=== PATIENT | female | born 1945 | race Caucasian/White ===

== ENCOUNTER 2017-01-11 16:56 | Inpatient (IN) | payer MEDICARE, BC ==
[~2017-01-11] VITALS: Ht 172.7 cm; Wt 98.0 kg
[~2017-01-11 16:56] MED LIST: VANCOMYCIN 2 GM in SOD CHLORIDE 0.9% 500 ML IVPB SCH
[2017-01-11 19:43] VITALS: TEMP 100.5
[2017-01-11] MEDS ORDERED: ACETAMINOPHEN 325 MG TAB PO STA (20:02)
[2017-01-11] MEDS ORDERED: SODIUM CHLORIDE 0.9% 1L BAG IV* STA (20:02)
--- NOTE | 2017-01-11 20:06 | ERA ---
ER Documentation Chief Complaint Date/Time DATE: 01/11/17 TIME: 20:03 Chief Complaint SENT BY PCP FOR POSITIVE BLOOD CULTURES HPI 71-year-old woman referred here by her PMD for recent positive blood cultures. Gram-positive cocci. Blood was drawn because she has had 3 months of daily low- grade fever of unknown etiology, she also had a cough on a daily basis but was treated as an outpatient twice with azithromycin and one time with ciprofloxacin. She states overall her cough is improved although fevers continue. She denies chest pain or shortness of breath, no calf or leg swelling , no abdominal pain, no vomiting or diarrhea, no blood per rectum, no easy bruising or skin discoloration. ROS All systems reviewed and are negative except as per history of present illness. PMhx/Soc Thyroid problems History of Surgery: Yes (cataract sx, choley, ercp, gastric bypass, ) Anesthesia Reaction: No Hx Neurological Disorder: No Hx Respiratory Disorders: No Hx Cardiac Disorders: Yes (htn. high cholesterol) Hx Psychiatric Problems: No Hx Miscellaneous Medical Probl: No Hx Alcohol Use: Yes (occasional) Hx Substance Use: No Hx Tobacco Use: No Smoking Status: Former smoker FmHx Family History: No diabetes Physical Exam Vitals Vital Signs Date Time Temp Pulse Resp B/P Pulse Ox O2 Delivery O2 Flow Rate FiO2 01/11/17 19:43 100.5 01/11/17 17:01 100.0 80 18 159/69 97 Physical Exam GENERAL: Well-developed, well-nourished, in no apparent distress, looks nontoxic in appearance, febrile HEENT: Dry mucous membranes, pink conjunctiva, no cervical spine tenderness or step-off deformities, no goiter, no jaundice or icterus, extraocular movements intact without pain. No submandibular induration, and no pharyngeal erythema NEURO: Alert and oriented 3, cranial nerves II through XII intact bilaterally, pupils equal round reactive to light, no focal deficits or facial asymmetry, sensation intact distally Strength 5/5 in upper and lower extremities bilaterally CARDIAC: Regular rate and rhythm, no murmurs rubs or gallops LUNGS: Clear bilaterally no wheezing crackles or stridor ABDOMEN: Soft nontender, no guarding, no rigidity, no rebound, no psoas sign no obturator sign. Normoactive bowel sounds SKIN: Warm and dry to touch, no abrasions, contusions, or hematomas, no lacerations, no ecchymosis, no target lesions, and without ulcers EXTREMITIES: No clubbing cyanosis or edema, calves are bilaterally symmetrical, no Homans sign, no popliteal cord sign. Distal pulses equal and bilateral PSYCH: Normal affect without agitation or irritability Result Diagram: 01/11/17205101/11/172051 Results 24 hrs Laboratory Tests Test 01/11/17 20:52 01/11/17 22:05 White Blood Count 7.310^3/ul Red Blood Count 4.1310^6/ul Hemoglobin 11.7g/dl Hematocrit 35.4% Mean Corpuscular Volume 85.7fl Mean Corpuscular Hemoglobin 28.3pg Mean Corpuscular Hemoglobin Concent 33.1g/dl Red Cell Distribution Width 15.9% Platelet Count 65832^3/UL Mean Platelet Volume 9.8fl Neutrophils % 64.2% Lymphocytes % 26.8% Monocytes % 7.8% Eosinophils % 0.3% Basophils % 0.4% Nucleated Red Blood Cells % 0.0/100WBC Neutrophils # (Manual) 4.710^3/ul Lymphocytes # 2.010^3/ul Monocytes # 0.610^3/ul Eosinophils # 0.010^3/ul Basophils # 0.010^3/ul Nucleated Red Blood Cells # 0.010^3/ul Prothrombin Time 12.6Sec Prothrombin Time Ratio 1.0 INR International Normalized Ratio 0.94 Activated Partial Thromboplast Time 37.4Sec Sodium Level 132mmol/L Potassium Level 4.2mmol/L Chloride Level 96mmol/L Carbon Dioxide Level 26mmol/L Anion Gap 14 Blood Urea Nitrogen 12mg/dl Creatinine 0.74mg/dl Glucose Level 107mg/dl Lactic Acid Level 1.2mmol/L 0.9mmol/L Calcium Level 9.8mg/dl Total Bilirubin 0.5mg/dl Direct Bilirubin 0.00mg/dl Indirect Bilirubin 0.5mg/dl Aspartate Amino Transf (AST/SGOT) 63IU/L Alanine Aminotransferase (ALT/SGPT) 63IU/L Alkaline Phosphatase 134IU/L Troponin I < 0.012ng/ml Total Protein 8.2g/dl Albumin 4.1g/dl Globulin 4.10g/dl Albumin/Globulin Ratio 1.00 Lipase 227U/L Current Medications Medications (Trade) Dose Ordered Sig/Kelle Route PRN Reason Start Time Stop Time Status Last Admin Dose Admin Sodium Chloride (NS) 3,040 ml BOLUS OVER 2 HOURS STAT IV* 01/11/17 20:02 01/11/17 20:03 DC 01/11/17 20:02 Acetaminophen 650 mg 650 mg ONCE STAT PO 01/11/17 20:02 01/11/17 20:03 DC 01/11/17 21:09 Vancomycin HCl 250 ml @ 125 mls/hr ONCE ONCE IVPB 01/11/17 20:30 01/11/17 22:29 DC Cefepime HCl (Maxipime 1gm/50 ml (Pmx)) 50 ml @ 100 mls/hr ONCE ONCE IVPB 01/11/17 20:30 01/11/17 20:59 DC 01/11/17 21:09 Procedures/[facility] IV line was established patient was placed on quality assurance monitor chassis rhythm strip revealed a sinus rhythm at about 80 bpm with upright P and T waves. Patient was febrile. Blood and urine cultures have been ordered results are pending I will follow-up. I do not suspect sepsis. EKG performed, read by me: 83 bpm, normal sinus rhythm, normal axis, no acute ST segment changes, narrow QRS complex, with good R-wave progression in precordial leads. One AP view of the chest performed, read by me reveals no acute infiltrates, normal mediastinum, sharp costophrenic and cardiac borders, no air under the diaphragm. Otherwise unremarkable chest x-ray. CT scan of the abdomen and pelvis was performed that was multiple incidental findings although no acute infectious or inflammatory pathology noted. Please refer to radiologist dictation for full report. I administered cefepime 1 g IV and vancomycin 1 g IV. Patient also received acetaminophen 650 mg p.o. for fever and 3 L normal saline intravenously for dehydration. CBC was normal, electrolytes normal, liver function tests normal, troponin negative, lactic acid was low. I do not suspect sepsis. Patient will be admitted to [facility] for continued medical management and further imaging, patient may require echocardiogram to rule out endocarditis. Departure Diagnosis: Primary Impression: Fever of unknown origin Additional Impression: Positive blood culture Condition: LIN Rooney MD Jan 11, 2017 20:06
[2017-01-11] MEDS ORDERED: CEFEPIME 1GM/50 ML (PMX) 50 ML IVPB ONE (20:30)
[2017-01-11] MEDS ORDERED: VANCOMYCIN 1 GM (PMX) 250 ML IVPB ONE (20:30)
--- NOTE | 2017-01-11 20:56 | RADRPT ---
PROCEDURE: CT ABDOMEN AND PELVIS WITHOUT CONTRAST: CLINICAL INDICATION: 71 years of age, female , possible sepsis. COMPARISON: None available. TECHNIQUE: CT of the abdomen and pelvis was performed without intravenous contrast. Oral contrast wa s not administered prior to the examination. Coronal and sagittal reformatted images were obtained from the axial source images. Images were revi ewed on a high-resolution PACS workstation. Dose information: Based on a 32 cm phantom, the estimated radiation dose (CTDI vol mGy) for each ser ies in this exam is . The estimated cumulative dose (DLP mGy-cm) is . One or more of the following dose reduction techniques were used: - Automated exposure control. - Adjustment of the mA and/or kV according to patient size. - Use of iterative reconstruction technique. FINDINGS: In the absence of intravenous contrast, the study constitutes a limited assessment of the solid orga ns, bowel and vessels. 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 Otherwise normal. ABDOMEN/PELVIS: Liver: Normal noncontrast appearance. Gallbladder: Status post cholecystectomy. Bile ducts: Mild pneumobilia in left greater than right hepatic lobe without biliary duct dilatation . Spleen: Mild splenomegaly measuring 13.9 cm in length. Pancreas: Normal noncontrast appearance. Adrenal glands: Sub centimeter hypodense nodules bilateral adrenal glands likely represent benign ad enomas. Kidneys and ureters: Normal noncontrast appearance. Aorta and IVC: Atherosclerosis aorta. No aneurysm Lymph nodes: Normal noncontrast appearance. Gastrointestinal tract: Small hiatus hernia. Status post ante-colic Kory-en-Y gastric bypass without evidence of complications . Bowel loops are decompressed. Mild sigmoid colon diverticulosis withou t diverticulitis. Appendix: Normal Bladder: Collapsed. Pelvic Organs: The uterus and adnexa are unremarkable. Peritoneal cavity: No free fluid or free intraperitoneal air. Abdominal wall: Normal noncontrast appearance. BONES: Musculoskeletal: Multilevel degenerative changes in spine. No suspicious bone lesions. IMPRESSION: Status post ante-colic Kory-en-Y gastric bypass with a small hiatus hernia. Negative for evidence o f complications. Sigmoid colon diverticulosis without diverticulitis. Status post cholecystectomy. Pneumobilia is likely from prior sphincterotomy. Recommend correlatio n with GI history. RPTAT: HCTS Efrain Schrader, Physician Date Time Electronically viewed and signed by Efrain Schrader, Physician on 01/11/2017 20:56 /
--- NOTE | 2017-01-11 20:57 | RADRPT ---
PROCEDURE: Portable chest x-ray. CLINICAL INDICATION: 71 years of age, female. Possible sepsis. TECHNIQUE: Portable AP view of the chest. COMPARISON: None available. FINDINGS: Cardiomediastinal contours are normal. Lungs are clear. Negative for pleural effusion or pneumothorax. No acute bony abnormality. IMPRESSION: Negative for evidence of acute chest process. Negative for an infiltrate.. RPTAT: HCTS Efrain Schrader Physician Date Time Electronically viewed and signed by Efrain Schrader Physician on 01/11/2017 20:57 CS/
[2017-01-11 21:16] LABS: BASOPHILS % 0.4 % (0.0-2.0); EOSINOPHILS % 0.3 % (0.0-7.0); HEMATOCRIT 35.4 % (37.0-47.0); HEMOGLOBIN 11.7 g/dl (12.0-16.0); LYMPHOCYTES % 26.8 % (15.0-51.0); MEAN CORPUSCULAR HEMOGLOBIN 28.3 pg (29.0-33.0); MEAN CORPUSCULAR HGB CONC 33.1 g/dl (32.0-37.0); MEAN CORPUSCULAR VOLUME 85.7 fl (82.0-101.0); MEAN PLATELET VOLUME 9.8 fl (7.4-10.4); MONOCYTE # 0.6 10^3/ul (0.3-0.9); MONOCYTES % 7.8 % (0.0-11.0); NEUTROPHILS % 64.2 % (39.0-77.0); PLATELET COUNT 207 10^3/UL (140-415); RED BLOOD COUNT 4.13 10^6/ul (4.20-5.40); RED CELL DISTRIBUTION WIDTH 15.9 % (11.5-14.5); WHITE BLOOD COUNT 7.3 10^3/ul (4.8-10.8)
[2017-01-11 21:38] LABS: INR 0.94; PROTIME 12.6 Sec (12.2-14.2)
[2017-01-11 21:39] LABS: PARTIAL THROMBOPLASTIN TIME 37.4 Sec (25.0-35.0)
[2017-01-11 21:44] LABS: ALANINE AMINOTRANSFERASE 63 IU/L (13-69); ALBUMIN 4.1 g/dl (3.3-4.9); ALKALINE PHOSPHATASE 134 IU/L (42-121); ANION GAP 14 (8-16); ASPARTATE AMINO TRANSFERASE 63 IU/L (15-46); BILIRUBIN,INDIRECT 0.5 mg/dl (0-1.1); BILIRUBIN,TOTAL 0.5 mg/dl (0.2-1.3); BLOOD UREA NITROGEN 12 mg/dl (7-20); CALCIUM 9.8 mg/dl (8.4-10.2); CARBON DIOXIDE 26 mmol/L (21-31); CHLORIDE 96 mmol/L (97-110); CREATININE 0.74 mg/dl (0.44-1.00); GLUCOSE 107 mg/dl (70-220); POTASSIUM 4.2 mmol/L (3.5-5.1); SODIUM 132 mmol/L (135-144); TOTAL PROTEIN 8.2 g/dl (6.1-8.1)
[2017-01-11 21:53] LABS: TROPONIN-I < 0.012 ng/ml (0.00-0.12)
[2017-01-11] MEDS ORDERED: ONDANSETRON 4 MG TAB PO PRN (23:00)
[2017-01-11] MEDS ORDERED: NACL 0.9% 3 ML SYG IV SCH (23:00)
[2017-01-11] MEDS ORDERED: HYDROCODONE/APAP (5/325) TAB PO PRN (23:00)
[2017-01-11 23:57] VITALS: Ht 172.7 cm; Wt 98.0 kg
[2017-01-12] MEDS ORDERED: VANCOMYCIN IV PER PHARMACY XX SCH
[2017-01-12] MEDS ORDERED: VANCOMYCIN 1 GM in NS 250 ML IVPB SCH (01:30)
[2017-01-12 01:37] VITALS: BP 113/54; RESP 20
[2017-01-12] MEDS: ZOLPIDEM 5 MG TAB PO PRN ×2 (01:37→22:04)
[2017-01-12] MEDS ORDERED: IRBE150T21 PO (01:42)
[2017-01-12] MEDS ORDERED: PRAV20TA2 PO (01:42)
[2017-01-12] MEDS ORDERED: CALC1TAB4 PO (01:47)
[2017-01-12] MEDS ORDERED: MULT-761 PO (01:47)
[2017-01-12] MEDS ORDERED: DOCU100T9 PO (01:47)
[2017-01-12] MEDS ORDERED: VITA400C15 PO (01:47)
[2017-01-12] MEDS ORDERED: BIOT1CAP3 PO (01:47)
[2017-01-12 05:52] LABS: BASOPHILS % 0.2 % (0.0-2.0); EOSINOPHILS % 0.3 % (0.0-7.0); HEMATOCRIT 30.5 % (37.0-47.0); HEMOGLOBIN 9.7 g/dl (12.0-16.0); LYMPHOCYTES # 1.8 10^3/ul (0.8-2.9); MEAN CORPUSCULAR HEMOGLOBIN 27.4 pg (29.0-33.0); MEAN CORPUSCULAR HGB CONC 31.8 g/dl (32.0-37.0); MEAN CORPUSCULAR VOLUME 86.2 fl (82.0-101.0); MONOCYTE # 0.4 10^3/ul (0.3-0.9); PLATELET COUNT 179 10^3/UL (140-415); RED BLOOD COUNT 3.54 10^6/ul (4.20-5.40); RED CELL DISTRIBUTION WIDTH 15.9 % (11.5-14.5); WHITE BLOOD COUNT 6.1 10^3/ul (4.8-10.8)
[2017-01-12 06:30] LABS: IRON 25 ug/dl (35-150)
[2017-01-12 06:34] LABS: ALANINE AMINOTRANSFERASE 61 IU/L (13-69); ALBUMIN 3.2 g/dl (3.3-4.9); ALBUMIN/GLOBULIN RATIO 0.96; ALKALINE PHOSPHATASE 102 IU/L (42-121); ANION GAP 9 (8-16); ASPARTATE AMINO TRANSFERASE 53 IU/L (15-46); BILIRUBIN,INDIRECT 0.2 mg/dl (0-1.1); BILIRUBIN,TOTAL 0.2 mg/dl (0.2-1.3); BLOOD UREA NITROGEN 11 mg/dl (7-20); CALCIUM 8.6 mg/dl (8.4-10.2); CARBON DIOXIDE 24 mmol/L (21-31); CHLORIDE 103 mmol/L (97-110); CHOL/HDL RATIO 7.5 RATIO; CHOLESTEROL 143 mg/dl (100-200); CREATININE 0.67 mg/dl (0.44-1.00); GLUCOSE 92 mg/dl (70-220); HDL CHOLESTEROL 19 mg/dl (33-92); LACTATE DEHYDROGENASE 607 IU/L (313-618); MAGNESIUM 1.8 mg/dl (1.7-2.5); PHOSPHORUS 3.2 mg/dl (2.5-4.9); POTASSIUM 4.2 mmol/L (3.5-5.1); SODIUM 132 mmol/L (135-144); TOTAL PROTEIN 6.5 g/dl (6.1-8.1); TRIGLYCERIDES 154 mg/dl (0-149)
[2017-01-12 06:39] LABS: TOTAL IRON BINDING CAPACITY 339 ug/dl (241-421)
[2017-01-12 07:54] VITALS: BP 124/59; RESP 18
--- NOTE | 2017-01-12 08:35 | HP ---
Date/Time of Note Date/Time of Note DATE: 01/12/17 TIME: 08:23 Assessment/Plan VTE Prophylaxis VTE Prophylaxis Intervention: SCD's Lines/Catheters IV [facility]atheter [facility]from [facility]): Saline Lock Assessment/Plan Chief Complaint/Hosp Course This is a 71-year-old female being admitted to the [facility] floor for: #1 Fever of unknown origin: Patient has persistent cough and fever 3 months. She recently was found to have possible positive blood culture as an outpatient. Will repeat blood cultures at this time. Time patient's white blood cell count with normal values. Chest x-ray and CT scan of the abdomen did not show any signs of infection. Will order a resolution CT scan of the chest. Will obtain a urinalysis and urine culture. Also check MAHESH labs, HIV, Monospot test, rheumatoid factor, ESR, CRP. She was started on vancomycin and cefepime in the ED secondary to patient's reported positive blood cultures as an outpatient. Will obtain an ID consult. #2 Persistent cough: Patient has a cough for approximately 3 months. She does have a previous history of postnasal drip. Is not using an ALYSSA inhibitor at this time denies any history of acid reflux. While this could be secondary to postnasal drip, will obtain a high-resolution CT of the chest secondary to patient's persistent fevers. Will also obtain a pulmonary consult. #3 hyperlipidemia: Continue home statin #4 hypertension: The patient is on blood pressure medication of ARB. #5 DVT and GI prophylaxis: SCDs, acid fatoumata Further treatment strategy will be implemented as per the clinical course Problems: HPI/ROS Admit Date/Time Admit Date/Time Jan 11, 2017 at 22:32 Hx of Present Illness Chief complaint: Cough and fevers 3 months This is a 71-year-old woman referred here by her PMD for recent positive blood cultures. Gram-positive cocci. Blood was drawn because she has had 3 months of daily low-grade fever of unknown etiology, she also had a cough on a daily basis but was treated as an outpatient twice with azithromycin and one time with ciprofloxacin. Her highest fever recorded was 101.3 he needs to have a cough daily for fevers continue. She does report that she has been feeling drained and fatigued for the last 3 months. She also reports random pains however she is unsure whether this is secondary to just her age. She denies chest pain or shortness of breath, no calf or leg swelling, no abdominal pain, no vomiting or diarrhea, no blood per rectum, no easy bruising or skin discoloration. Eyes any ALYSSA inhibitor use. She denies any symptoms of acid reflux. Denies any recent travel or sick contacts. Allergies: Sulfa Medications: See JOSE ALFREDO CARTER Const: as per HPI Eyes : No pain discharge or redness or change in visual acuity ENT: No pain, sore throat, congestion, congestion, dysphagia or discharge Respiratory: As per HPI Cardiovascular: No chest pain, palpitation, PND, or edema GI : no change in appetite, abdominal pain, nausea, vomiting, diarrhea, constipation, or change in the color his stool Genitourinary: No dysuria, hematuria, flank pain , discharge or CVA tenderness Musculoskeletal: As per HPI Skin: No rash, bruising or hives Neuro: No headache, dizziness, syncope, seizure, focal weakness Endocrine: No polyuria, polydipsia, temperature intolerance Psych: No hallucination, depression, anxiety or suicidal ideation PMH/Family/Social Past Medical History Hyperlipidemia, hypertension Past Surgical History Cholecystectomy, ampulla Vater dilatation, Kory-en-Y gastric bypass surgery Family History Significant Family History: hypertension Social History Alcohol Use: rarely Smoking Status: Never smoker Drug Use: none Exam/Review of Systems Vital Signs Vitals Vital Signs Date Time Temp Pulse Resp B/P Pulse Ox O2 Delivery O2 Flow Rate FiO2 01/12/17 07:54 99.4 74 18 124/59 97 01/11/17 23:18 Room Air Intake and Output 01/11/17 01/11/17 01/12/17 15:00 23:00 07:00 Intake Total 790 ml Balance 790 ml Exam Exam General: Patient is a obese female lying in bed in no acute distress HEENT: Atraumatic, normocephalic. The pupils are equal, round and reactive. Extraocular motor are intact Neck: Supple with full range of motion. No rigidity or meningismus Chest: Nontender Lungs: Clear to auscultation bilaterally no crackles rales or wheezing, persistent cough during my examination Heart: Normal S1-S2, Regular rhythm and rate. No overt murmurs appreciated Abdomen: Soft , nontender, nondistended , bowel sounds are present. No guarding no rebound tenderness , No masses or organomegaly. No costovertebral temporal angle mass Extremities: Normal to inspection, no edema no cyanosis Neurologic: Normal mental status, speech normal, cranial nerves II through XII are intact, motor and sensory are intact, no focal weakness Additional Comments PROCEDURE: CT ABDOMEN AND PELVIS WITHOUT CONTRAST: CLINICAL INDICATION: 71 years of age, female , possible sepsis. COMPARISON: None available. TECHNIQUE: CT of the abdomen and pelvis was performed without intravenous contrast. Oral contrast was not administered prior to the examination. Coronal and sagittal reformatted images were obtained from the axial source images. Images were reviewed on a high-resolution PACS workstation. Dose information: Based on a 32 cm phantom, the estimated radiation dose (CTDI vol mGy) for each series in this exam is . The estimated cumulative dose (DLP mGy-cm) is . One or more of the following dose reduction techniques were used: - Automated exposure control. - Adjustment of the mA and/or kV according to patient size. - Use of iterative reconstruction technique. FINDINGS: In the absence of intravenous contrast, the study constitutes a limited assessment of the solid organs, bowel and vessels. 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 Otherwise normal. ABDOMEN/PELVIS: Liver: Normal noncontrast appearance. Gallbladder: Status post cholecystectomy. Bile ducts: Mild pneumobilia in left greater than right hepatic lobe without biliary duct dilatation. Spleen: Mild splenomegaly measuring 13.9 cm in length. Pancreas: Normal noncontrast appearance. Adrenal glands: Sub centimeter hypodense nodules bilateral adrenal glands likely represent benign adenomas. Kidneys and ureters: Normal noncontrast appearance. Aorta and IVC: Atherosclerosis aorta. No aneurysm Lymph nodes: Normal noncontrast appearance. Gastrointestinal tract: Small hiatus hernia. Status post ante-colic Kory-en-Y gastric bypass without evidence of complications . Bowel loops are decompressed. Mild sigmoid colon diverticulosis without diverticulitis. Appendix: Normal Bladder: Collapsed. Pelvic Organs: The uterus and adnexa are unremarkable. Peritoneal cavity: No free fluid or free intraperitoneal air. Abdominal wall: Normal noncontrast appearance. BONES: Musculoskeletal: Multilevel degenerative changes in spine. No suspicious bone lesions. IMPRESSION: Status post ante-colic Kory-en-Y gastric bypass with a small hiatus hernia. Negative for evidence of complications. Sigmoid colon diverticulosis without diverticulitis. Status post cholecystectomy. Pneumobilia is likely from prior sphincterotomy. Recommend correlation with GI history. RPTAT: HCTS Efrain Schrader, Physician Date Time Electronically viewed and signed by Efrain Schrader Physician on 01/11/2017 20: 56 CS/ CC: LIN LYMAN MD PROCEDURE: Portable chest x-ray. CLINICAL INDICATION: 71 years of age, female. Possible sepsis. TECHNIQUE: Portable AP view of the chest. COMPARISON: None available. FINDINGS: Cardiomediastinal contours are normal. Lungs are clear. Negative for pleural effusion or pneumothorax. No acute bony abnormality. IMPRESSION: Negative for evidence of acute chest process. Negative for an infiltrate.. RPTAT: HCTS Efrain Schrader Physician Date Time Electronically viewed and signed by Efrain Schrader Physician on 01/11/2017 20: 57 CS/ CC: LIN LYMAN MD Labs Result Diagram: 01/12/1751401/12/17 0515 Medications Medications Current Medications Ondansetron HCl (Zofran Tab) 4 mg Q6H PRN PO NAUSEA AND/OR VOMITING; Start 01/11 at 23:00 Acetaminophen (Tylenol Tab) 650 mg Q6H PRN PO PAIN LEVEL 1-3 OR FEVER; Start at 23:00 Acetaminophen/ Hydrocodone Bitart (Redfox (5/325)) 1 tab Q6H PRN PO MODERATE PAIN LEVEL 4-6; Start 01/11/17 at 23:00 Famotidine (Pepcid) 20 mg Q12 PO ; Start 01/12/17 at 09:00 Guaifenesin/ Dextromethorphan (Mucinex Dm) 1 tab Q6 PRN PO cough; Start at 00:30 Zolpidem Tartrate (Ambien) 5 mg HS PRN PO INSOMNIA Last administered on t 01:37; Admin Dose 5 MG; Start 01/12/17 at 01:30 LUCÍA MCCARTHY Jan 12, 2017 08:35
--- NOTE | 2017-01-12 08:58 | RADRPT ---
PROCEDURE: Right Upper Quadrant Ultrasound. CLINICAL INDICATION: transminitis, PT NPO TRAVELS BY W/C TECHNIQUE: Multiple real-time images were acquired of the patient's right upper quadrant abdomen a nd retroperitoneum utilizing a high resolution transducer. COMPARISON: None FINDINGS: The liver measures 15.3 cm, and demonstrates mildly increased echogenicity and coarsened echotexture . The main portal vein is patent with proper directional flow. There is no intrahepatic biliary duct al dilatation. The extrahepatic common bile duct measures 10 mm. The gallbladder is absent. The visualized pancreas is unremarkable. The right kidney measures 10.6 cm and demonstrates normal echotexture. There is no right renal calcu heide or hydronephrosis. The visualized abdominal aorta and IVC are grossly unremarkable. IMPRESSION: The liver demonstrates mildly coarsened echogenicity and mildly coarsened echotexture which is nonsp ecific and can be seen with mild fatty infiltration as well as early chronic liver disease. No defin ite morphologic changes of cirrhosis are identified. The main portal vein is patent with proper dire ctional flow. Status post cholecystectomy with dilatation of the common bile duct to 10 mm consistent with post ch olecystectomy change. No right hydronephrosis. RPTAT: EE Physician Robb Date Time Electronically viewed and signed by Physician Robb on 01/12/2017 08:57 /
[2017-01-12] MEDS ORDERED: NON-FORMULARY/PATIENT OWN MED (Irbesartan* 150 MG) PO SCH (09:00)
[2017-01-12] MEDS ORDERED: BIOTIN 1 MG PO SCH (09:00)
[2017-01-12] MEDS: FAMOTIDINE 20 MG TAB PO SCH ×2 (09:54→20:51)
[2017-01-12] MEDS: GUAIFENESIN/DM (SR) TAB PO PRN ×2 (09:54→16:12)
[2017-01-12] MEDS: LOSARTAN 50 MG TAB PO SCH (09:55)
[2017-01-12] MEDS: CEFEPIME 1GM/50 ML (PMX) 50 ML IVPB SCH ×2 (09:56→20:50)
[2017-01-12] MEDS: ACETAMINOPHEN 325 MG TAB PO PRN ×2 (11:53→19:38)
[2017-01-12] MEDS: SOD FERRIC GLUC COMPLX 125 MG in SOD CHLORIDE 0.9% 100 ML IVPB SCH (13:03)
[2017-01-12] MEDS: VANCOMYCIN 1 GM (PMX) 250 ML IVPB SCH (14:00)
--- NOTE | 2017-01-12 14:23 | RADRPT ---
PROCEDURE: CT Chest without contrast. CLINICAL INDICATION: Cough and fever x3 months TECHNIQUE: CT of the chest was performed on a multi-detector scanner without IV contrast. Coronal and sagittal images were reformatted from the axial data set. One or more of the following dose re duction techniques were used: automated exposure control, adjustment of the mA and/or kV according t o patient size, use of iterative reconstruction technique. CTDI = 16.68 mGy. DLP = 634.28 mGy-cm. COMPARISON: None available. FINDINGS: There is mild chronic scarring at the lung bases. No acute infiltrate, pleural effusion, pulmonary edema or pneumothorax is identified. Bilateral bronchial wall thickening is seen, suggestive of bro nchitis. No pulmonary nodule or mass lesion is identified. The heart size is normal, without pericardial effusion. Coronary arterial and aortic atheroscleroti c calcifications are present. There is no thoracic aortic aneurysm. No mediastinal, hilar, axillar y or supraclavicular lymphadenopathy is identified. Pneumobilia is noted, most likely chronic benign sequela of prior sphincterotomy. The patient is sta tus post gastric bypass. The surrounding osseous structures are remarkable for degenerative enthesop athy of the spine. No osteolytic or osteoblastic lesion is detected. IMPRESSION: 1. Bilateral bronchial wall thickening is seen, suggestive of bronchitis. 2. Coronary arterial and aortic atherosclerotic calcifications are present. 3. No mass, lymphadenopathy, or focal acute infiltrate is identified. RPTAT: PP .Nile Goldberg MD, Date Time Electronically viewed and signed by .Nile Goldberg MD, MD on 01/12/2017 14:22 .R/
[2017-01-12 15:46] VITALS: BP 135/65; RESP 18
--- NOTE | 2017-01-12 17:41 | CONS ---
DATE OF ADMISSION: 01/11/2017 DATE OF CONSULTATION: 01/12/2017 REASON FOR CONSULTATION: Fevers and cough. HISTORY OF PRESENT ILLNESS: This is a 71-year-old lady with a history of recurrent fevers over the past few weeks, has had an extensive workup by her primary care physician, recently was found to have klebsiella urinary tract infection, sent here for further evaluation following recent positive blood culture for gram-positive cocci. Patient states she has had subjective fevers, no hemoptysis or hematemesis. She has had a nonproductive cough. No recent travel history. No sick contacts. She has had an elevated CRP and ESR. Started on empiric antibiotics of vancomycin and cefepime yesterday pending further results. PAST MEDICAL HISTORY: As above, gastric bypass surgery and cholecystectomy. MEDICATIONS: Per chart. ALLERGIES: NONE. SOCIAL HISTORY: Nonsmoker. No alcohol. No history of drug use. FAMILY HISTORY: Noncontributory. REVIEW OF SYSTEMS: A 12-point review of systems negative other than that mentioned above. PHYSICAL EXAMINATION: VITAL SIGNS: Temperature 98. Pulse is 97, blood pressure 124/59, O2 saturation 96 percent FiO2 on room air. NECK: Supple. No JVD. No lymphadenopathy. CARDIAC: S1, S2. No added sounds or murmurs. CHEST: Diminished air entry bilaterally. ABDOMEN: Soft, nontender. No guarding or rebound. EXTREMITIES: No cyanosis, clubbing, edema. NEUROLOGICALLY: No focal deficits. LABORATORY: White count 6.1, hemoglobin 9.7, platelets of 179,000. BUN 11, creatinine 0.67. INR 0.94. Chest CT is suggestive of bronchitis. No lymphadenopathy. No effusions or infiltrate. Liver ultrasound was within normal limits. CT abdomen and pelvis essentially unremarkable. IMPRESSION AND PLAN: Fever of unknown origin, currently being worked up for possible endocarditis, given gram-positive blood cultures in addition to probable klebsiella pneumonia as per her primary care physician. PLAN: 1. Continue broad-spectrum antibiotics. 2. Pending culture results. 3. Echocardiogram. 4. DVT and GI prophylaxis. 5. Outpatient pulmonary function testing. Dictated By: Sammy Bagley MD /charisma/siva /Document#: [id number]
[2017-01-12 19:36] VITALS: BP 113/57; RESP 20
[2017-01-12 20:37] LABS: RAPID PLASMA REAGIN NONREACTIVE (NR)
[2017-01-12] MEDS: ATORVASTATIN 20 MG TAB PO SCH (20:52)
[2017-01-12 20:58] LABS: MONOTEST Negative (NEG)
[2017-01-12] MEDS ORDERED: NON-FORMULARY/PATIENT OWN MED (Pravastatin Sodium 20 MG) PO SCH (21:00)
[2017-01-13] MEDS: VANCOMYCIN 1 GM (PMX) 250 ML IVPB SCH ×2 (01:33→15:28)
[2017-01-13 02:08] VITALS: BP 121/60; RESP 20
--- NOTE | 2017-01-13 04:12 | CONS ---
DATE OF ADMISSION: 01/11/2017 DATE OF CONSULTATION: 01/12/2017 TYPE OF CONSULTATION: Infectious Disease REQUESTING PHYSICIAN: wDayne Conklin MD I am covering for Dr. Americo Thomas. HISTORY OF PRESENT ILLNESS: The patient is a 71-year-old female who was admitted with a 3-week history of cough and low- grade fever and a report of a positive blood culture on 01/11/2017. The patient's temperatures have been reported as being 100, 100.5 and the highest being 101.3. The patient has a history of asthma, which has not troubled her since she was younger. She had an episode of very high eosinophil count asthma for which she was under the care of another physician for several years and then finally got off the medication that she was taking. She has had a dry cough often, which may be associated with what she would describe as postnasal drip sometimes and sometimes for no reason at all she has spasms of coughing. She does not smoke cigarettes or have a history of tobacco use. Her primary medical doctor gave her a rescue inhaler, she has she said did not help her very much. The patient had a positive blood culture for gram-positive cocci, which was reported by her, but we have no identification or culture and sensitivity. She had no fever or chills or nausea or vomiting. She has noted fatigue for approximately 3 months. The patient has a biliary problem which begins with having a cholecystectomy and gastric bypass. She passed gallstones after she had her cholecystectomy and had to have ERCP to remove it, 1 impacted it ampulla of Vater and had some dilatation at that time. She has had episodes of epigastric discomfort and liver enzyme elevations from time-to- time. The epigastric area is not tender when she is having this problem. This is not related to anything that she is eating. The studies done in the hospital indicate that she has splenomegaly with a 13.9 cm spleen. She has pneumobilia, the left being greater than right, for both the hepatic lobes. The common bile duct is measured at 10 mm, which is supposedly not unusual for post cholecystectomy. This, of course, is complicated by the fact that she had dilation of her ampulla of Vater and may have had some restenosis. Her liver function test is elevated, one of them, the AST to 53, she has an LDH of 607, and her lipase on admission was 227. There was no amylase performed. The patient had, prior to being ill, flew to [place], then to [place], [place], then to [place], [place], and then to [place] and then apparently to [place] again. This exposes her to a lot of other people's virus in the close quarters of the aircraft in which she was flying. Further, she has a history of asthmatic bronchitis. Since admission, the patient has been afebrile because she has been on vancomycin and cefepime, which is a rather broad spectrum with the gram-positive cocci as a suspect, so I would recommend discontinuing the cefepime while we assume more information by repeating the amylase and lipase. Also, it should be noted that her sedimentation rate was 60 mm/hr. Also, she was in an area of the [facility] which is endemic to histoplasmosis and she should be checked for that. PHYSICAL EXAMINATION: GENERAL APPEARANCE: The patient is a rather talkative, but very excellent historian who is 98 kg and still overweight. HEENT: The pupils are equal, round, and react to light. Extraocular movements are full. Mouth has moist mucous membranes. NECK: Supple. CHEST: Not clear to auscultation. Examination of the chest reveals marked prolongation of expiration and wheezes and coughing induced upon taking a deep inspiration and forced expiration she has extreme prolongation and inspiratory wheezes. ABDOMEN: Obese and soft. There is no epigastric tenderness or right upper quadrant tenderness. EXTREMITIES: Examination reveals no edema, cyanosis or clubbing. IMPRESSION: 1. Febrile illness. 2. Asthmatic bronchitis. 3. Probable biliary colic with possibly a touch of gallstone pancreatitis. 4. Gram-positive bacteremia. To be identified. Also, 2 are pending. 5. Status post cholecystectomy and post cholecystectomy gallstone passage on numerous occasions (biliary colic). 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 7. History of sinusitis. 8. History of gastroesophageal reflux disease. RECOMMENDATIONS: I would repeat the liver enzymes, the lipase and amylase; order steroid inhaler treatments of budesonide twice a day by Respiratory Therapy; consider GI consultation for evaluation of the hepatobiliary and pancreas systems. Thank you for referring this interesting patient to Dr. Americo Thomas. Dictated By: Anup Ayoub MD /charisma/lucius /Document#: [id number]
[2017-01-13 06:19] LABS: BASOPHILS % 0.4 % (0.0-2.0); EOSINOPHILS # 0.1 10^3/ul (0.0-0.5); EOSINOPHILS % 1.9 % (0.0-7.0); HEMATOCRIT 28.2 % (37.0-47.0); HEMOGLOBIN 9.1 g/dl (12.0-16.0); LYMPHOCYTES # 1.8 10^3/ul (0.8-2.9); LYMPHOCYTES % 35.9 % (15.0-51.0); MEAN CORPUSCULAR HEMOGLOBIN 27.4 pg (29.0-33.0); MEAN CORPUSCULAR HGB CONC 32.3 g/dl (32.0-37.0); MEAN CORPUSCULAR VOLUME 84.9 fl (82.0-101.0); MEAN PLATELET VOLUME 9.9 fl (7.4-10.4); MONOCYTE # 0.6 10^3/ul (0.3-0.9); MONOCYTES % 11.3 % (0.0-11.0); NEUTROPHILS % 49.9 % (39.0-77.0); PLATELET COUNT 166 10^3/UL (140-415); RED BLOOD COUNT 3.32 10^6/ul (4.20-5.40); RED CELL DISTRIBUTION WIDTH 16.3 % (11.5-14.5); WHITE BLOOD COUNT 5.1 10^3/ul (4.8-10.8)
[2017-01-13 06:40] LABS: CALCIUM 8.8 mg/dl (8.4-10.2); CREATININE 0.68 mg/dl (0.44-1.00); POTASSIUM 4.2 mmol/L (3.5-5.1)
[2017-01-13 06:45] LABS: MAGNESIUM 1.9 mg/dl (1.7-2.5); PHOSPHORUS 3.8 mg/dl (2.5-4.9)
[2017-01-13 07:31] LABS: BILIRUBIN,INDIRECT 0.2 mg/dl (0-1.1); BILIRUBIN,TOTAL 0.2 mg/dl (0.2-1.3); TOTAL PROTEIN 6.1 g/dl (6.1-8.1)
[2017-01-13 07:42] VITALS: BP 131/60; RESP 18
[2017-01-13] MEDS: BUDESONIDE (NEB) 0.5MG/2ML AMP HHN SCH ×2 (08:36→20:07)
[2017-01-13] MEDS: CALCIUM/VITAMIN D (500/200) TAB PO SCH (09:27)
[2017-01-13] MEDS: LOSARTAN 50 MG TAB PO SCH (09:27)
[2017-01-13] MEDS: FAMOTIDINE 20 MG TAB PO SCH ×2 (09:27→20:45)
--- NOTE | 2017-01-13 09:31 | RADRPT ---
Echocardiogram Report Patient Name: BRETT ÁLVAREZ Gender: Female Date: 1945 Study Date: 12-Jan-2017 Glue Drier Operator: [facility] Location: 6 Ref. Physician: LUCÍA MCCARTHY Quality: Adequate Procedures: Transthoracic echocardiogram with complete 2D, M-Mode, and doppler examination. Indications: Fever x 3 months. 2D/M Mode Doppler Measurement Value Normal Ranges Measurement Value Normal Ranges LVIDd 2D 4.8 3.5 - 5.6 cm DAYANA Vmax 0.8 cm2 LVIDs 2D 3.1 2.1 - 4.1 cm DAYANA VTI 0.8 cm2 FS 2D 34.5 % AV Mean Mario 2.2 m/sec LVPWd 2D 1.0 0.6 - 1.1 cm AV Mean PG 22.0 mmHg IVSd 2D 1.0 0.6 - 1.1 cm AV Peak Mario 3.2 m/sec IVS/LVPW 2D 1.0 AV Peak PG 42.0 mmHg AoR Diam 2D 2.2 2.0 - 3.7 cm AV VTI 69.5 cm LA/Ao 2D 2 0 - 1 AI Peak PG 85.0 mmHg EDV 2D 108.0 cm3 AI Peak Mario 4.6 m/sec ESV 2D 30.4 cm3 AI PHT 385.0 msec LA Dimen 2D 3.8 2.3 - 4.0 cm LVOT Mean Mario 0.9 m/sec LVOT Diam 1.6 cm LVOT Mean PG 3.0 mmHg LVOT Area 2.0 cm2 LVOT Peak Mario 1.3 m/sec LVOT Peak PG 6.0 mmHg LVOT VTI 26.4 cm MV E Peak Mario 1.1 m/sec MV A Peak Mario 1.0 m/sec MV E/A 1.1 MV Decel Time 173 msec MV E/A 1.1 TR Peak Mario 2.5 m/sec TR Peak PG 24.0 mmHg RVSP 32.0 mmHg Findings Left Ventricle: Normal left ventricular systolic function. Normal left ventricular cavity size. Mild concentric left ventricular hypertrophy. Ejection fraction is visually estimated at 65 %. Tissue Doppler/Mitral Doppler indices are consistent with impaired relaxation (Stage I diastolic dysfunction). Right Ventricle: Normal right ventricular size. Normal right ventricular systolic function. Left Atrium: There is mild enlargement of left atrium. Right Atrium: The right atrium is normal in size. Mitral Valve: Normal appearance of the mitral valve. Moderate mitral annular calcification. Mild mitral valve regurgitation. Aortic Valve: Moderate aortic stenosis. Aortic valve Max velocity 3.23 m/sec. Max PG 42.00 mmHg. Mean PG 22.00 mmHg. Aortic valve area 1.08 cm2. Aortic cusps appear moderately calcified. Moderate to severe aortic valve regurgitation. Possible mobile echodensity concerning for endocarditis based on significant valvular regurgitation and fevers x 3 months by history. MARAH would be appropriate for diagnosis. Tricuspid Valve: Normal appearance of the tricuspid valve. Estimated peak PA systolic pressure 32 mmHg. There is trace tricuspid regurgitation. Pulmonic Valve: Pulmonic valve not well visualized. Pericardium: Normal pericardium with no significant pericardial effusion. Aorta: Normal aortic root. IVC: Dilated IVC with respiratory collapse consistent with elevated right atrial pressure. Conclusions 1.Normal left ventricular systolic function. Normal left ventricular cavity size. Mild concentric left ventricular hypertrophy. Ejection fraction is visually estimated at 65 %. Tissue Doppler/Mitral Doppler indices are consistent with impaired relaxation (Stage I diastolic dysfunction). 2.Moderate aortic stenosis. Aortic valve Max velocity 3.23 m/sec. Max PG 42.00 mmHg. Mean PG 22.00 mmHg. Aortic valve area 1.08 cm2. Aortic cusps appear moderately calcified. Moderate to severe aortic valve regurgitation. 3.Possible mobile echodensity concerning for endocarditis based on significant valvular regurgitation and fevers x 3 months by history. MARAH would be appropriate for diagnosis. 4.Estimated peak PA systolic pressure 32 mmHg based on RA pressure of 8 mmHg. Electronically Signed By: Girish Soriano 13-Jan-2017 09:31:17 -0700 Patient Name: BRETT ÁLVAREZ Study Date: 12-Jan-2017 [id number]
[2017-01-13 10:10] LABS: ADD UMIC YES; UR ASCORBIC ACID NEGATIVE (NEGATIVE); UR BILIRUBIN (Dip) NEGATIVE (NEGATIVE); UR BLOOD (Dip) 1+ mg/dL (NEGATIVE); UR CLARITY CLEAR (CLEAR); UR COLOR STRAW (YELLOW); UR GLUCOSE (Dip) NEGATIVE (NEGATIVE); UR KETONES (Dip) NEGATIVE (NEGATIVE); UR LEUKOCYTE ESTERASE (Dip) NEGATIVE Leu/ul (NEGATIVE); UR NITRITE (Dip) NEGATIVE (NEGATIVE); UR RBC 0 /HPF (0-5); UR SPECIFIC GRAVITY (Dip) 1.006 (1.003-1.030); UR TOTAL PROTEIN (Dip) NEGATIVE (NEGATIVE); UR UROBILINOGEN (Dip) NEGATIVE (NEGATIVE)
--- NOTE | 2017-01-13 10:59 | PN ---
Date/Time of Note Date/Time of Note DATE: 01/13/17 TIME: 10:58 Assessment/Plan VTE Prophylaxis VTE Prophylaxis Intervention: ambulation Lines/Catheters IV C[facility]ter Type (from [facility]): Saline Lock Assessment/Plan Chief Complaint/Hosp Course 1. Systemic inflammatory response syndrome with underlying Gram-positive bacteremia. Etiology unclear. On empiric antibiotics. Being followed by infectious diseases. 2. Asthmatic bronchitis. Continue inhaled bronchodilators. Continue antibiotics. 3. Possible mobile echodensity on 2D echocardiogram concerning for cardiac vegetation. Cardiology consult will be obtained for MARAH. 4. Moderate aortic stenosis with moderate to severe aortic valve regurgitation. Cardiology to evaluate the patient. 5. Hypertension. Continue antihypertensives. 6. Iron deficiency anemia. Continue iron supplements. 7. Dyslipidemia. Continue statins. 8. Mild pneumobilia evident on abdominal CT scan. Obtain gastroenterology consult specifically since the patient has fever of unknown origin. 9. Fluids, electrolytes, and nutrition. Low cholesterol diet. 10. DVT prophylaxis. Ambulation. 11. Plan. Continue current antimicrobials. Obtain cardiology and gastroenterology consult. Case discussed with Dr. Bender. Problems: Subjective 24 Hr Interval Summary Free Text/Dictation Patient remains afebrile. Exam/Review of Systems Vital Signs Vitals Vital Signs Date Time Temp Pulse Resp B/P Pulse Ox O2 Delivery O2 Flow Rate FiO2 01/13/17 08:36 77 20 97 21 01/13/17 07:42 98.8 131/60 01/11/17 23:18 Room Air Intake and Output 01/12/17 01/12/17 01/13/17 15:00 23:00 07:00 Intake Total 210 ml 1800 ml 650 ml Output Total 500 ml Balance 210 ml 1800 ml 150 ml Exam General: Obese 71 year-old female lying in bed in no apparent distress. HEENT: Normocephalic, atraumatic. Eyes: Anicteric sclerae, conjunctivae clear. ENT: Nasal septum midline, oral mucosa moist. Neck supple, no JVD noticed. Respiratory: Bilaterally clear breath sounds. No use of accessory muscles of respiration. No adventitious breath sounds. Cardiovascular: S1, S2 heard. Grade II/ systolic murmur. +diastolic murmur. Abdomen: Soft, nontender, and nondistended. Bowel sounds positive in all 4 quadrants. Genitourinary: Deferred. Extremities: No cyanosis, no clubbing, no edema. Peripheral pulses palpable. Neurologic: Cranial nerves II through XII grossly intact. The patient is awake, alert, and oriented. Skin: Normal skin turgor. Results Result Diagram: 01/13/17 0551 01/13/17 0551 Results 24 hrs Laboratory Tests Test 01/13/17 03:15 01/13/17 05:43 01/13/17 05:50 01/13/17 05:51 Urine Color STRAW Urine Clarity CLEAR Urine pH 5.0 Urine Specific [place] 1.006 Urine Ketones NEGATIVE Urine Nitrite NEGATIVE Urine Bilirubin NEGATIVE Urine Urobilinogen NEGATIVE Urine Leukocyte Esterase NEGATIVE Urine Microscopic RBC 0 Urine Microscopic WBC 1 Urine Hemoglobin 1+ H Urine Glucose NEGATIVE Urine Total Protein NEGATIVE Total Bilirubin 0.2 Direct Bilirubin 0.00 Indirect Bilirubin 0.2 Aspartate Amino Transf (AST/SGOT) 47 H Alanine Aminotransferase (ALT/SGPT) 58 Alkaline Phosphatase 88 Total Protein 6.1 Albumin 3.0 L Amylase Level 58 Lipase 208 White Blood Count 5.1 Red Blood Count 3.32 L Hemoglobin 9.1 L Hematocrit 28.2 L Mean Corpuscular Volume 84.9 Mean Corpuscular Hemoglobin 27.4 L Mean Corpuscular Hemoglobin Concent 32.3 Red Cell Distribution Width 16.3 H Platelet Count 166 Mean Platelet Volume 9.9 Neutrophils % 49.9 Lymphocytes % 35.9 Monocytes % 11.3 H Eosinophils % 1.9 Basophils % 0.4 Nucleated Red Blood Cells % 0.0 Neutrophils # (Manual) 2.6 Lymphocytes # 1.8 Monocytes # 0.6 Eosinophils # 0.1 Basophils # 0.0 Nucleated Red Blood Cells # 0.0 Sodium Level 134 L Potassium Level 4.2 Chloride Level 105 Carbon Dioxide Level 24 Anion Gap 9 Blood Urea Nitrogen 9 Creatinine 0.68 Glucose Level 94 Calcium Level 8.8 Phosphorus Level 3.8 Magnesium Level 1.9 Medications Medications Current Medications Ondansetron HCl (Zofran Tab) 4 mg Q6H PRN PO NAUSEA AND/OR VOMITING; Start 01/11 at 23:00 Acetaminophen (Tylenol Tab) 650 mg Q6H PRN PO PAIN LEVEL 1-3 OR FEVER Last administered on 01/12/17t 19:38; Admin Dose 650 MG; Start 01/11/17 at 23:00 Acetaminophen/ Hydrocodone Bitart ([place] (5/325)) 1 tab Q6H PRN PO MODERATE PAIN LEVEL 4-6; Start 01/11/17 at 23:00 Famotidine (Pepcid) 20 mg Q12 PO Last administered on 01/13/17 09:27; Admin Dose 20 MG; Start 01/12/17 at 09:00 Guaifenesin/ Dextromethorphan (Mucinex Dm) 1 tab Q6 PRN PO cough Last administered on 01/12/17 16:12; Admin Dose 1 TAB; Start 01/12/17 at 00:30 Zolpidem Tartrate (Ambien) 5 mg HS PRN PO INSOMNIA Last administered on 22:04; Admin Dose 5 MG; Start 01/12/17 at 01:30 Calcium/Vitamin D 1 tab 1 tab DAILY PO Last administered on 01/13/17 09:27; Admin Dose 1 TAB; Start 01/13/17 at 09:00 Vancomycin HCl (Vancocin) 250 ml @ 125 mls/hr Q12H IVPB Last administered on 01:33; Admin Dose 125 MLS/HR; Start 01/12/17 at 14:00 Miscellaneous Information (*Rx Drug Level Order Reminder*) VANCOMYCIN TROUGH ON 01/13 @ 13,:00 ONCE ONCE XX ; Start 01/13/17 at 13:00; Stop 01/13/17 at 13:01 Atorvastatin Calcium (Lipitor) 20 mg DAILY@21 PO ; Start 01/12/17 at 21:00 Losartan Potassium 50 mg 50 mg DAILY PO Last administered on 01/13/17 09:27; Admin Dose 50 MG; Start 01/12/17 at 09:00 Ferric Sodium Gluconate Complex 125 mg/Sodium Chloride 110 ml @ 100 mls/hr Q24H IVPB Last administered on 01/12/17 13:03; Admin Dose 100 MLS/HR; Start 01/12/17 at 13:00; Stop 01/14/17 at 14:05 Cefepime HCl (Maxipime 1gm/50 ml (Pmx)) 50 ml @ 100 mls/hr Q12 IVPB ; Start 01/13/17 at 10:00 LEÓN ARMENTA NP Jan 13, 2017 10:59
--- NOTE | 2017-01-13 12:28 | CONS ---
Date/Time of Note Date/Time of Note DATE: 01/13/17 TIME: 12:19 Assessment/Plan Assessment/Plan Chief Complaint/Hosp Course Bacteremia/?endocarditis: In the setting of fevers/bacteremia and significant aortic valvular regurgitation with possible vegetation, endocarditis is very likely. Will need a MARAH to confirm and better evaluate. Cultures so far show GPC in chains which may be strep species from skin or viridans from teeth. If endocarditis confirmed, may need surgical replacement as she does have mild CHF (though may just be from IVF given here as she was previously asymptomatic) Acute diastolic/valvular heart failure: Mild by exam, possibly from AV regurgitation in setting of IVF resuscitation. HTN HL Prior gastric bypass -MARAH tomorrow, timing TBD -NPO after midnight -CT head to r/o embolic event in setting of headaches -lasix 20mg IV x1 and assess tomorrow -antibiotics per ID Problems: Consultation Date/Type/Reason Admit Date/Time Jan 11, 2017 at 22:32 Date of Consultation: Jan 13, 2017 Type of Consultation: Cardiology Reason for Consultation Abnormal echo, concern for endocarditis Referring Provider: LEÓN ARMENTA SOFTWARE ENGINEER INTERN Hx of Present Illness 71 y F with HTN, HL, s/p gastric bypass surgery who presented due to positive blood cultures check at her PCP office and 3 months of fevers. The pt notes that she has been having 3 months of intermittent fevers and malaise. No SOB, orthopnea, PND, edema, CP. She has noticed some edema since being admitted. She also has intermittent headaches which are new to her. She was told she may need a root canal 6 months ago but no recent dental work. Had SCC of her leg and had it removed ~3 months ago. per HPI, otherwise negative Past Medical History per HPI Social History Alcohol Use: rarely Smoking Status: Never smoker Drug Use: none Exam/Review of Systems Vital Signs Vitals Vital Signs Date Time Temp Pulse Resp B/P Pulse Ox O2 Delivery O2 Flow Rate FiO2 01/13/17 08:36 77 20 97 21 01/13/17 07:42 98.8 131/60 01/11/17 23:18 Room Air Intake and Output 01/12/17 01/12/17 01/13/17 15:00 23:00 07:00 Intake Total 210 ml 1800 ml 650 ml Output Total 500 ml Balance 210 ml 1800 ml 150 ml Exam Constitutional: alert, oriented Psych: nl mood/affect, no complaints Head: atraumatic, normocephalic Eyes: nl conjunctiva Neck: jvd (9cm), supple Respiratory: crackles/rales (mild), diminished breath sounds, No clear to auscultation Cardiovascular: edema (trace), regular rate and rhythm, systolic murmur (2/6 MI, 2/4 diastolic murmur ) Gastrointestinal: non-tender, soft, No distended Musculoskeletal: nl extremities to inspection Neurological: nl mental status, nl speech Results Result Diagram: 01/13/17 0551 01/13/17 0551 Results 24 hrs Laboratory Tests Test 01/13/17 03:15 01/13/17 05:43 01/13/17 05:50 01/13/17 05:51 Urine Color STRAW Urine Clarity CLEAR Urine pH 5.0 Urine Specific [place] 1.006 Urine Ketones NEGATIVE Urine Nitrite NEGATIVE Urine Bilirubin NEGATIVE Urine Urobilinogen NEGATIVE Urine Leukocyte Esterase NEGATIVE Urine Microscopic RBC 0 Urine Microscopic WBC 1 Urine Hemoglobin 1+ H Urine Glucose NEGATIVE Urine Total Protein NEGATIVE Total Bilirubin 0.2 Direct Bilirubin 0.00 Indirect Bilirubin 0.2 Aspartate Amino Transf (AST/SGOT) 47 H Alanine Aminotransferase (ALT/SGPT) 58 Alkaline Phosphatase 88 Total Protein 6.1 Albumin 3.0 L Amylase Level 58 Lipase 208 White Blood Count 5.1 Red Blood Count 3.32 L Hemoglobin 9.1 L Hematocrit 28.2 L Mean Corpuscular Volume 84.9 Mean Corpuscular Hemoglobin 27.4 L Mean Corpuscular Hemoglobin Concent 32.3 Red Cell Distribution Width 16.3 H Platelet Count 166 Mean Platelet Volume 9.9 Neutrophils % 49.9 Lymphocytes % 35.9 Monocytes % 11.3 H Eosinophils % 1.9 Basophils % 0.4 Nucleated Red Blood Cells % 0.0 Neutrophils # (Manual) 2.6 Lymphocytes # 1.8 Monocytes # 0.6 Eosinophils # 0.1 Basophils # 0.0 Nucleated Red Blood Cells # 0.0 Sodium Level 134 L Potassium Level 4.2 Chloride Level 105 Carbon Dioxide Level 24 Anion Gap 9 Blood Urea Nitrogen 9 Creatinine 0.68 Glucose Level 94 Calcium Level 8.8 Phosphorus Level 3.8 Magnesium Level 1.9 Medications Medications Current Medications Ondansetron HCl (Zofran Tab) 4 mg Q6H PRN PO NAUSEA AND/OR VOMITING; Start 01/11 at 23:00 Acetaminophen (Tylenol Tab) 650 mg Q6H PRN PO PAIN LEVEL 1-3 OR FEVER Last administered on 01/12/17 19:38; Admin Dose 650 MG; Start 01/11/17 at 23:00 Acetaminophen/ Hydrocodone Bitart ([place] (5/325)) 1 tab Q6H PRN PO MODERATE PAIN LEVEL 4-6; Start 01/11/17 at 23:00 Famotidine (Pepcid) 20 mg Q12 PO Last administered on 01/13/17 09:27; Admin Dose 20 MG; Start 01/12/17 at 09:00 Guaifenesin/ Dextromethorphan (Mucinex Dm) 1 tab Q6 PRN PO cough Last administered on 01/12/17 16:12; Admin Dose 1 TAB; Start 01/12/17 at 00:30 Zolpidem Tartrate (Ambien) 5 mg HS PRN PO INSOMNIA Last administered on 22:04; Admin Dose 5 MG; Start 01/12/17 at 01:30 Calcium/Vitamin D 1 tab 1 tab DAILY PO Last administered on 01/13/17 09:27; Admin Dose 1 TAB; Start 01/13/17 at 09:00 Vancomycin HCl (Vancocin) 250 ml @ 125 mls/hr Q12H IVPB Last administered on 01:33; Admin Dose 125 MLS/HR; Start 01/12/17 at 14:00 Miscellaneous Information (*Rx Drug Level Order Reminder*) VANCOMYCIN TROUGH ON 01/13 @ 13,:00 ONCE ONCE XX ; Start 01/13/17 at 13:00; Stop 01/13/17 at 13:01 Atorvastatin Calcium (Lipitor) 20 mg DAILY@21 PO ; Start 01/12/17 at 21:00 Losartan Potassium 50 mg 50 mg DAILY PO Last administered on 01/13/17 09:27; Admin Dose 50 MG; Start 01/12/17 at 09:00 Ferric Sodium Gluconate Complex 125 mg/Sodium Chloride 110 ml @ 100 mls/hr Q24H IVPB Last administered on 01/12/17 13:03; Admin Dose 100 MLS/HR; Start 01/12/17 at 13:00; Stop 01/14/17 at 14:05 Cefepime HCl (Maxipime 1gm/50 ml (Pmx)) 50 ml @ 100 mls/hr Q12 IVPB ; Start 01/13/17 at 10:00 MARY ANNE FULLER Jan 13, 2017 12:28
[2017-01-13] MEDS ORDERED: FUROSEMIDE 20 MG INJ IV ONE (12:30)
[2017-01-13] MEDS: CEFEPIME 1GM/50 ML (PMX) 50 ML IVPB SCH ×2 (12:36→20:45)
[2017-01-13] MEDS: SOD FERRIC GLUC COMPLX 125 MG in SOD CHLORIDE 0.9% 100 ML IVPB SCH (13:25)
--- NOTE | 2017-01-13 14:05 | PN ---
DATE: 01/13/2017 SUBJECTIVE DATA: No events overnight. No fevers. Patient is alert, feels good. Denies pain, discomfort. WBC 5.1, no shift, no bands. BUN 9, creatinine 0.68. MICROBIOLOGY: Blood culture growing gram-positive cocci in pairs and chains. DIAGNOSTICS: A 2D echo revealed possible endocarditis. CT of the chest revealed bilateral bronchial wall thickening suggestive of bronchitis. CT of the abdomen and pelvis revealed no complications, sigmoid colon diverticulosis without diverticulitis, status post cholecystectomy, pneumobilia likely from prior sphincterotomy. She is status post and gastric bypass with small hiatal hernia. ANTIMICROBIALS: Patient is on IV vancomycin and cefepime. PHYSICAL EXAMINATION: GENERAL: This is a well-developed, obese, elderly woman, who is alert, in no distress. HEENT: Head atraumatic, normocephalic. Sclerae anicteric. Buccal mucosa pink. NECK: Supple. CHEST: Rise symmetrical. Breath sounds clear. HEART: S1, S2. ABDOMEN: Soft, bowel sounds present. EXTREMITIES: Without cyanosis or edema. ASSESSMENT: 1. Gram-positive cocci bacteremia==> with evidence of possible vegetations per 2D echocardiogram. 2. Bronchitis and history of Klebsiella pneumonia. 3. Morbid obesity, status post gastric bypass. 4. Squamous cell carcinoma of the skin, status post surgical removal. 5. History of cholecystectomy. PLAN: Patient remains clinically and hemodynamically stable, pending final cultures. Continue present care, antibiotics. Plan for MARAH. Dictated By: Tushar Hughes NP /charisma/siva /Document#: [id number] [email or web address]
--- NOTE | 2017-01-13 14:54 | CONS ---
Date/Time of Note Date/Time of Note DATE: 01/13/17 TIME: 14:50 Consult Date/Type/Reason Admit Date/Time Jan 11, 2017 at 22:32 Initial Consult Date 01/13/17 Type of Consultation: Pulm Ordering Provider: LEÓN ARMENTA QUILL CLEANING MACHINE OPERATOR Subjective Comfortable, no new events, no fevers. Objective Vital Signs Date Time Temp Pulse Resp B/P Pulse Ox O2 Delivery O2 Flow Rate FiO2 01/13/17 08:36 77 20 97 21 01/13/17 07:42 98.8 131/60 01/11/17 23:18 Room Air Intake and Output 01/12/17 01/12/17 01/13/17 15:00 23:00 07:00 Intake Total 210 ml 1800 ml 650 ml Output Total 500 ml Balance 210 ml 1800 ml 150 ml Exam VITAL SIGNS: NECK: Supple. No JVD. No lymphadenopathy. CARDIAC: S1, S2. No added sounds or murmurs. CHEST: Diminished air entry bilaterally. ABDOMEN: Soft, nontender. No guarding or rebound. EXTREMITIES: No cyanosis, clubbing, edema. NEUROLOGICALLY: No focal deficits. Results/Medications Result Diagram: 01/13/17 0551 01/13/17 0551 Results 24 hrs Laboratory Tests Test 01/13/17 03:15 01/13/17 05:43 01/13/17 05:50 01/13/17 05:51 Urine Color STRAW Urine Clarity CLEAR Urine pH 5.0 Urine Specific [place] 1.006 Urine Ketones NEGATIVE Urine Nitrite NEGATIVE Urine Bilirubin NEGATIVE Urine Urobilinogen NEGATIVE Urine Leukocyte Esterase NEGATIVE Urine Microscopic RBC 0 Urine Microscopic WBC 1 Urine Hemoglobin 1+ H Urine Glucose NEGATIVE Urine Total Protein NEGATIVE Total Bilirubin 0.2 Direct Bilirubin 0.00 Indirect Bilirubin 0.2 Aspartate Amino Transf (AST/SGOT) 47 H Alanine Aminotransferase (ALT/SGPT) 58 Alkaline Phosphatase 88 Total Protein 6.1 Albumin 3.0 L Amylase Level 58 Lipase 208 White Blood Count 5.1 Red Blood Count 3.32 L Hemoglobin 9.1 L Hematocrit 28.2 L Mean Corpuscular Volume 84.9 Mean Corpuscular Hemoglobin 27.4 L Mean Corpuscular Hemoglobin Concent 32.3 Red Cell Distribution Width 16.3 H Platelet Count 166 Mean Platelet Volume 9.9 Neutrophils % 49.9 Lymphocytes % 35.9 Monocytes % 11.3 H Eosinophils % 1.9 Basophils % 0.4 Nucleated Red Blood Cells % 0.0 Neutrophils # (Manual) 2.6 Lymphocytes # 1.8 Monocytes # 0.6 Eosinophils # 0.1 Basophils # 0.0 Nucleated Red Blood Cells # 0.0 Sodium Level 134 L Potassium Level 4.2 Chloride Level 105 Carbon Dioxide Level 24 Anion Gap 9 Blood Urea Nitrogen 9 Creatinine 0.68 Glucose Level 94 Calcium Level 8.8 Phosphorus Level 3.8 Magnesium Level 1.9 Medications Current Medications Ondansetron HCl (Zofran Tab) 4 mg Q6H PRN PO NAUSEA AND/OR VOMITING; Start 01/11 at 23:00 Acetaminophen (Tylenol Tab) 650 mg Q6H PRN PO PAIN LEVEL 1-3 OR FEVER Last administered on 01/12/17 19:38; Admin Dose 650 MG; Start 01/11/17 at 23:00 Acetaminophen/ Hydrocodone Bitart ([place] (5/325)) 1 tab Q6H PRN PO MODERATE PAIN LEVEL 4-6; Start 01/11/17 at 23:00 Famotidine (Pepcid) 20 mg Q12 PO Last administered on 01/13/17 09:27; Admin Dose 20 MG; Start 01/12/17 at 09:00 Guaifenesin/ Dextromethorphan (Mucinex Dm) 1 tab Q6 PRN PO cough Last administered on 01/12/17 16:12; Admin Dose 1 TAB; Start 01/12/17 at 00:30 Zolpidem Tartrate (Ambien) 5 mg HS PRN PO INSOMNIA Last administered on 22:04; Admin Dose 5 MG; Start 01/12/17 at 01:30 Calcium/Vitamin D 1 tab 1 tab DAILY PO Last administered on 01/13/17 09:27; Admin Dose 1 TAB; Start 01/13/17 at 09:00 Vancomycin HCl (Vancocin) 250 ml @ 125 mls/hr Q12H IVPB Last administered on 01:33; Admin Dose 125 MLS/HR; Start 01/12/17 at 14:00 Atorvastatin Calcium (Lipitor) 20 mg DAILY@21 PO ; Start 01/12/17 at 21:00 Losartan Potassium 50 mg 50 mg DAILY PO Last administered on 01/13/17 09:27; Admin Dose 50 MG; Start 01/12/17 at 09:00 Ferric Sodium Gluconate Complex 125 mg/Sodium Chloride 110 ml @ 100 mls/hr Q24H IVPB Last administered on 01/13/17 13:25; Admin Dose 100 MLS/HR; Start 01/12/17 at 13:00; Stop 01/14/17 at 14:05 Cefepime HCl (Maxipime 1gm/50 ml (Pmx)) 50 ml @ 100 mls/hr Q12 IVPB Last administered on 01/13/17 12:36; Admin Dose 100 MLS/HR; Start 01/13/17 at 10:00 Assessment/Plan Chief Complaint/Hosp Course LABORATORY: White count 6.1, hemoglobin 9.7, platelets of 179,000. BUN 11, creatinine 0.67. INR 0.94. Chest CT is suggestive of bronchitis. No lymphadenopathy. No effusions or infiltrate. Liver ultrasound was within normal limits. CT abdomen and pelvis essentially unremarkable. Assessment. 1. Concern for possible SBE, severe AR with possible vegetation on TTE 2. Recent klebsiella uti 3. New / worsening AR. PLAN: 1. Continue broad-spectrum antibiotics. 2. Pending culture results. 3. Echocardiogram.MARAH 4. DVT and GI prophylaxis. 5. Outpatient pulmonary function testing. Problems: GABRIEL LAYNE MD, [facility] Jan 13, 2017 14:54
[2017-01-13 15:48] VITALS: BP 133/60; RESP 20
[2017-01-13 19:04] LABS: ANA SCREEN POSITIVE (NEGATIVE); CYCLIC CITRULLINATED PEP IGG <16 UNITS
[2017-01-13 19:43] VITALS: BP 138/63; RESP 18
[2017-01-13] MEDS: ATORVASTATIN 20 MG TAB PO SCH (20:54)
[2017-01-13] MEDS: ZOLPIDEM 5 MG TAB PO PRN (22:00)
[2017-01-13] MEDS ORDERED: VITAMIN A & D 5 GM OINT PACKET TOP ONE (23:09)
[2017-01-14] VITALS (21 sets, daily range): BP systolic 115–172; BP diastolic 52–77; PULSE 60–72; RESP 16–26
[2017-01-14] MEDS: VANCOMYCIN 1.25 GM in SOD CHLORIDE 0.9% 250 ML IVPB SCH ×2 (01:46→15:02)
--- NOTE | 2017-01-14 03:13 | RADRPT ---
PROCEDURE: CT HEAD WITHOUT CONTRAST: CLINICAL INDICATION: 71 years of age female, headache. Possible endocarditis. . COMPARISON: None available. TECHNIQUE: CT of the head was performed without IV contrast. Coronal and sagittal reformatted images were obtained from the axial source images. Images were reviewed on a high-resolution PACS workstat ion. Dose information: The estimated radiation dose (CTDI vol mGy) for each series in this exam is 40.3. The estimated cumulative dose (DLP mGy-cm) is 798. One or more of the following dose reduction techniques were used: - Automated exposure control. - Adjustment of the mA and/or kV according to patient size. - Use of iterative reconstruction technique. FINDINGS: Parenchyma: Negative for evidence of acute intracranial hemorrhage, mass effect or large territory i nfarct. Pritchett-white matter differentiation is maintained. Minimal intracranial atherosclerosis of the cavernous carotid arteries. Ventricles and extra-axial spaces: Appropriate for age. No abnormal extra-axial fluid collections ar e identified. Visualized paranasal sinuses: Clear. Mastoid air cells: Clear. Bones: No focal abnormality. Additional comment: None. IMPRESSION: Negative for evidence of an acute abnormality. Cause for headache is not evident. Unremarkable CT he ad for age. RPTAT: HCTS Physician Dylan Date Time Electronically viewed and signed by Physician Dylan on 01/14/2017 03:12 /
[2017-01-14 05:48] LABS: BASOPHILS % 0.5 % (0.0-2.0); EOSINOPHILS # 0.1 10^3/ul (0.0-0.5); EOSINOPHILS % 1.8 % (0.0-7.0); HEMATOCRIT 29.8 % (37.0-47.0); HEMOGLOBIN 9.4 g/dl (12.0-16.0); LYMPHOCYTES # 1.8 10^3/ul (0.8-2.9); LYMPHOCYTES % 31.3 % (15.0-51.0); MEAN CORPUSCULAR HGB CONC 31.5 g/dl (32.0-37.0); MEAN CORPUSCULAR VOLUME 85.6 fl (82.0-101.0); MEAN PLATELET VOLUME 10.1 fl (7.4-10.4); MONOCYTE # 0.6 10^3/ul (0.3-0.9); MONOCYTES % 10.9 % (0.0-11.0); PLATELET COUNT 191 10^3/UL (140-415); RED BLOOD COUNT 3.48 10^6/ul (4.20-5.40); RED CELL DISTRIBUTION WIDTH 16.3 % (11.5-14.5); WHITE BLOOD COUNT 5.7 10^3/ul (4.8-10.8)
[2017-01-14 06:12] LABS: CALCIUM 9.2 mg/dl (8.4-10.2); CREATININE 0.77 mg/dl (0.44-1.00); POTASSIUM 4.4 mmol/L (3.5-5.1)
[2017-01-14 06:13] LABS: MAGNESIUM 1.9 mg/dl (1.7-2.5); PHOSPHORUS 4.6 mg/dl (2.5-4.9)
--- NOTE | 2017-01-14 08:28 | CONS ---
Date/Time of Note Date/Time of Note DATE: 01/14/17 TIME: 08:26 Assessment/Plan Assessment/Plan Chief Complaint/Hosp Course Bacteremia/?endocarditis: In the setting of fevers/bacteremia and significant aortic valvular regurgitation with possible vegetation, endocarditis is very likely. Will need a MARAH to confirm and better evaluate. Cultures so far show GPC in chains which may be strep species from skin or viridans from teeth. If endocarditis confirmed, may need surgical replacement as she does have mild CHF (though may just be from IVF given here as she was previously asymptomatic) Acute diastolic/valvular heart failure: Mild by exam, possibly from AV regurgitation in setting of IVF resuscitation. Now resolved HTN HL Prior gastric bypass -MARAH this am -hold lasix -antibiotics per ID Problems: Consultation Date/Type/Reason Admit Date/Time Jan 11, 2017 at 22:32 Initial Consult Date 01/13/17 Type of Consultation: Cardiology Referring Provider: LEÓN ARMENTA NP 24 HR Interval Summary Free Text/Dictation No o/n events. Cultures still not resulted. CT head negative. Diuresed well. No SOB Exam/Review of Systems Vital Signs Vitals Vital Signs Date Time Temp Pulse Resp B/P Pulse Ox O2 Delivery O2 Flow Rate FiO2 01/14/17 08:19 98.5 67 16 136/61 96 01/13/17 20:07 21 01/11/17 23:18 Room Air Intake and Output 01/13/17 01/13/17 01/14/17 15:00 23:00 07:00 Intake Total 160 ml 1250 ml 650 ml Balance 160 ml 1250 ml 650 ml Exam Constitutional: alert, oriented Psych: no complaints Head: atraumatic, normocephalic Neck: No jvd Respiratory: clear to auscultation, No crackles/rales Cardiovascular: regular rate and rhythm, systolic murmur (2/6 MI, 2/4 diastolic ), No edema Gastrointestinal: non-tender, soft Neurological: nl mental status, nl speech Results Result Diagram: 01/14/17 0523 01/14/17 0524 Results 24 hrs Laboratory Tests Test 01/13/17 14:00 01/14/17 05:23 01/14/17 05:24 Vancomycin Level Trough 11.2 White Blood Count 5.7 Red Blood Count 3.48 L Hemoglobin 9.4 L Hematocrit 29.8 L Mean Corpuscular Volume 85.6 Mean Corpuscular Hemoglobin 27.0 L Mean Corpuscular Hemoglobin Concent 31.5 L Red Cell Distribution Width 16.3 H Platelet Count 191 Mean Platelet Volume 10.1 Neutrophils % 55.0 Lymphocytes % 31.3 Monocytes % 10.9 Eosinophils % 1.8 Basophils % 0.5 Nucleated Red Blood Cells % 0.0 Neutrophils # (Manual) 3.1 Lymphocytes # 1.8 Monocytes # 0.6 Eosinophils # 0.1 Basophils # 0.0 Nucleated Red Blood Cells # 0.0 Sodium Level 137 Potassium Level 4.4 Chloride Level 106 Carbon Dioxide Level 25 Anion Gap 10 Blood Urea Nitrogen 10 Creatinine 0.77 Glucose Level 98 Calcium Level 9.2 Phosphorus Level 4.6 Magnesium Level 1.9 Medications Medications Current Medications Ondansetron HCl (Zofran Tab) 4 mg Q6H PRN PO NAUSEA AND/OR VOMITING; Start 01/11 at 23:00 Acetaminophen (Tylenol Tab) 650 mg Q6H PRN PO PAIN LEVEL 1-3 OR FEVER Last administered on 01/12/17 19:38; Admin Dose 650 MG; Start 01/11/17 at 23:00 Acetaminophen/ Hydrocodone Bitart ([place] (5/325)) 1 tab Q6H PRN PO MODERATE PAIN LEVEL 4-6; Start 01/11/17 at 23:00 Famotidine (Pepcid) 20 mg Q12 PO Last administered on 01/13/17 20:45; Admin Dose 20 MG; Start 01/12/17 at 09:00 Guaifenesin/ Dextromethorphan (Mucinex Dm) 1 tab Q6 PRN PO cough Last administered on 01/12/17 16:12; Admin Dose 1 TAB; Start 01/12/17 at 00:30 Zolpidem Tartrate (Ambien) 5 mg HS PRN PO INSOMNIA Last administered on 22:00; Admin Dose 5 MG; Start 01/12/17 at 01:30 Calcium/Vitamin D ([place]yster Shell/ Vit-D (500/200)) 1 tab DAILY PO Last administered on 01/13/17 09:27; Admin Dose 1 TAB; Start 01/13/17 at 09:00 Atorvastatin Calcium (Lipitor) 20 mg DAILY@21 PO ; Start 01/12/17 at 21:00 Losartan Potassium 50 mg 50 mg DAILY PO Last administered on 01/13/17 09:27; Admin Dose 50 MG; Start 01/12/17 at 09:00 Ferric Sodium Gluconate Complex 125 mg/Sodium Chloride 110 ml @ 100 mls/hr Q24H IVPB Last administered on 01/13/17 13:25; Admin Dose 100 MLS/HR; Start 01/12/17 at 13:00; Stop 01/14/17 at 14:05 Cefepime HCl 50 ml @ 100 mls/hr Q12 IVPB Last administered on 01/13/17 20:45; Admin Dose 100 MLS/HR; Start 01/13/17 at 10:00 Vancomycin HCl/ Sodium Chloride (Vancocin/NS) 250 ml @ 83.333 mls/ hr Q12H IVPB Last administered on 01/14/17 01:46; Admin Dose 83.333 MLS/HR; Start at 02:00 MARY ANNE FULLER Jan 14, 2017 08:28
[2017-01-14] MEDS: FAMOTIDINE 20 MG TAB PO SCH ×2 (08:47→19:52)
[2017-01-14] MEDS: CALCIUM/VITAMIN D (500/200) TAB PO SCH (08:47)
[2017-01-14] MEDS: LOSARTAN 50 MG TAB PO SCH (08:47)
[2017-01-14] MEDS: CEFEPIME 1GM/50 ML (PMX) 50 ML IVPB SCH ×2 (09:00→10:46)
[2017-01-14] MEDS: BUDESONIDE (NEB) 0.5MG/2ML AMP HHN SCH ×3 (09:00→20:37)
[2017-01-14] MEDS ORDERED: ETOMIDATE 20 MG INJ ONE (09:07)
[2017-01-14] MEDS ORDERED: EPHEDrine SULFATE 50 MG/5 ML SYG ONE (09:07)
[2017-01-14] MEDS ORDERED: LIDOCAINE 2% (SDV) 5 ML INJ ONE (09:07)
[2017-01-14] MEDS ORDERED: MIDAZOLAM 1 MG/ML 2 ML INJ ONE (09:07)
[2017-01-14] MEDS ORDERED: PROPOFOL 20 ML ONE (09:07)
[2017-01-14] MEDS ORDERED: HYDROmorphONE (0.2 MG/ML) 10ML SYG IV PRN (09:30)
[2017-01-14] MEDS ORDERED: ONDANSETRON 4 MG INJ IV PRN (09:30)
--- NOTE | 2017-01-14 09:38 | OPR ---
Date/Time of Note Date/Time of Note DATE: 01/14/17 TIME: 09:33 Operative Report Free Text/Dictation Transesophageal Echocardiogram Procedure Note and Preliminary Report: Date of procedure 01/14/2017 Indication: Bacteremia, suspicion for endocarditis Description: After the patient was consented, she was brought to the cardiac agriculture laboratory technician recovery room. Anesthesia was administered by the anesthesiologist ( see separate note). The MARAH probe was inserted in to the esophagus without any resistance. Appropriate images were obtained. The probe was withdrawn without difficulty. The patient tolerated the procedure without issues. Findings: (prelim) 1)Aortic valve vegetation consistent with endocarditis 2)Severe aortic regurgitation. 3)No other valvular vegetation noted. 4)See complete echo report in [facility] MARY ANNE FULLER Jan 14, 2017 09:38
--- NOTE | 2017-01-14 10:21 | RADRPT ---
Transesophageal Echo Report Patient Name: BRETT ÁLVAREZ Gender: Female Date: 1945 Study Date: 14-Jan-2017 [employer] Operator: Courtnye Tsai RDCS Location: [facility] Ref. Physician: MARY ANNE SORIANO Quality: Good Procedures: Transesophageal echocardiogram was performed. PREP: Patient received pre-procedure education; informed consent, baseline vital signs, and focused history and physical were obtained. SEDATION: Oropharangeal anesthesia was achieved using 2-3 sprays of [place] topical anesthesia. Systemic sedation was achieved. ESOPHAGEAL INTUBATION: After suitable sedation, the probe was passed. Continuous pulse oximetry, electrocardiographic, and blood pressure monitoring were maintained throughout the procedure. Standard views were obtained in the transgastric, mid-esophageal, and basal planes at approximately 0, 30, 90, and 120 degrees. In addition, a normal saline study was performed. No immediate MARAH complications noted. Description of Procedure: Performing Dr.: Dr. Mary Anne Soriano MD. Consent: Informed consent was obtained from the patient in writing. The risks and benefits of the procedure were explained in detail to the patient, including but not limited to the risk of aspiration, dysphagia, and esophageal perforation. After a thorough discussion of these risks and benefits, the patients surrogate agreed to proceed. Procedure: A complete transesophageal echocardiogram study was performed. Additional evaluation with color flow Doppler and limited spectral Doppler was performed. Continuous HR, BP, ECG, and O2 sat monitoring was performed during the procedure. The patient received pre-procedural education. Baseline vital signs and a focused history and physical were obtained. The MARAH study was then performed under deep sedation with IV propofol provided by the anesthesiology service. After suitable sedation, the probe was passed without difficulty. Continuous. Indications: Pericarditis. Findings Left Ventricle: Normal left ventricular systolic function. Normal left ventricular size. Ejection fraction is measured at 60 %. Left Atrium: There is mild enlargement of left atrium. Right Atrium: The right atrium is normal in size. Atrial Septum: No shunt by color Doppler. There is severe lipomatous hypertrophy of the atrial septum. Mitral Valve: Normal appearance of the mitral valve. Mild mitral valve regurgitation. Aortic Valve: Mobile echodensity approximately 0.75 x 0.5 cm consistent with endocarditis. There is severe aortic regurgitation with two jets seen concerning for leaflet perforation. Tricuspid Valve: Normal appearance and function of the tricuspid valve with trace physiologic regurgitation. Pulmonic Valve: There is trace to mild pulmonic regurgitation. Aorta: Ascending aorta is dilated. Ascending Aorta 3.5 cm. Pulmonary Veins: Pulmonary veins are normal in appearance and pulse Doppler interrogation shows normal systolic predominant flow. Atrial Appendage: Normal atrial appendage no thrombi or echogenic structure seen. Conclusions 1.Mobile echodensity approximately 0.75 x 0.5 cm consistent with endocarditis. There is severe aortic regurgitation with two jets seen concerning for leaflet perforation. No vegetation on reminder of valves. 2.Normal left ventricular systolic function. Normal left ventricular size. Ejection fraction is measured at 60 %. 3.No shunt by color Doppler. There is severe lipomatous hypertrophy of the atrial septum. 4.Ascending aorta is mildly dilated. Ascending Aorta 3.5 cm. Electronically Signed By: Mary Anne Soriano 14-Jan-2017 10:20:45 -0700 Patient Name: BRETT ÁLVAREZ Study Date: 14-Jan-2017 [id number]
--- NOTE | 2017-01-14 11:02 | CONS ---
Date/Time of Note Date/Time of Note DATE: 01/14/17 TIME: 10:51 Consult Date/Type/Reason Admit Date/Time Jan 11, 2017 at 22:32 Initial Consult Date 01/13/17 Type of Consultation: Pulm Ordering Provider: LEÓN ARMENTA ERP DEVELOPER Subjective Comfortable, cardiac cath today. Objective Vital Signs Date Time Temp Pulse Resp B/P Pulse Ox O2 Delivery O2 Flow Rate FiO2 01/14/17 10:25 60 16 131/77 96 Room Air 01/14/17 09:45 98.2 01/13/17 20:07 21 Intake and Output 01/13/17 01/13/17 01/14/17 14:59 22:59 06:59 Intake Total 160 ml 1250 ml 650 ml Balance 160 ml 1250 ml 650 ml Exam VITAL SIGNS: NECK: Supple. No JVD. No lymphadenopathy. CARDIAC: S1, S2. No added sounds or murmurs. CHEST: Diminished air entry bilaterally. ABDOMEN: Soft, nontender. No guarding or rebound. EXTREMITIES: No cyanosis, clubbing, edema. NEUROLOGICALLY: No focal deficits. Results/Medications Result Diagram: 01/14/17 0501/14/17 0524 Results 24 hrs Laboratory Tests Test 01/13/17 14:00 01/14/17 05:23 01/14/17 05:24 Vancomycin Level Trough 11.2 White Blood Count 5.7 Red Blood Count 3.48 L Hemoglobin 9.4 L Hematocrit 29.8 L Mean Corpuscular Volume 85.6 Mean Corpuscular Hemoglobin 27.0 L Mean Corpuscular Hemoglobin Concent 31.5 L Red Cell Distribution Width 16.3 H Platelet Count 191 Mean Platelet Volume 10.1 Neutrophils % 55.0 Lymphocytes % 31.3 Monocytes % 10.9 Eosinophils % 1.8 Basophils % 0.5 Nucleated Red Blood Cells % 0.0 Neutrophils # (Manual) 3.1 Lymphocytes # 1.8 Monocytes # 0.6 Eosinophils # 0.1 Basophils # 0.0 Nucleated Red Blood Cells # 0.0 Sodium Level 137 Potassium Level 4.4 Chloride Level 106 Carbon Dioxide Level 25 Anion Gap 10 Blood Urea Nitrogen 10 Creatinine 0.77 Glucose Level 98 Calcium Level 9.2 Phosphorus Level 4.6 Magnesium Level 1.9 Medications Current Medications Ondansetron HCl (Zofran Tab) 4 mg Q6H PRN PO NAUSEA AND/OR VOMITING; Start 01/11 at 23:00 Acetaminophen (Tylenol Tab) 650 mg Q6H PRN PO PAIN LEVEL 1-3 OR FEVER Last administered on 01/12/17 19:38; Admin Dose 650 MG; Start 01/11/17 at 23:00 Acetaminophen/ Hydrocodone Bitart ([place] (5/325)) 1 tab Q6H PRN PO MODERATE PAIN LEVEL 4-6; Start 01/11/17 at 23:00 Famotidine (Pepcid) 20 mg Q12 PO Last administered on 01/13/17 20:45; Admin Dose 20 MG; Start 01/12/17 at 09:00 Guaifenesin/ Dextromethorphan (Mucinex Dm) 1 tab Q6 PRN PO cough Last administered on 01/12/17 16:12; Admin Dose 1 TAB; Start 01/12/17 at 00:30 Zolpidem Tartrate (Ambien) 5 mg HS PRN PO INSOMNIA Last administered on 22:00; Admin Dose 5 MG; Start 01/12/17 at 01:30 Calcium/Vitamin D ([place]/ Vit-D (500/200)) 1 tab DAILY PO Last administered on 01/13/17 09:27; Admin Dose 1 TAB; Start 01/13/17 at 09:00 Atorvastatin Calcium (Lipitor) 20 mg DAILY@21 PO ; Start 01/12/17 at 21:00 Losartan Potassium 50 mg 50 mg DAILY PO Last administered on 01/13/17 09:27; Admin Dose 50 MG; Start 01/12/17 at 09:00 Ferric Sodium Gluconate Complex 125 mg/Sodium Chloride 110 ml @ 100 mls/hr Q24H IVPB Last administered on 01/13/17 13:25; Admin Dose 100 MLS/HR; Start 01/12/17 at 13:00; Stop 01/14/17 at 14:05 Cefepime HCl 50 ml @ 100 mls/hr Q12 IVPB Last administered on 01/14/17 10:46; Admin Dose 100 MLS/HR; Start 01/13/17 at 10:00 Vancomycin HCl/ Sodium Chloride (Vancocin/NS) 250 ml @ 83.333 mls/ hr Q12H IVPB Last administered on 01/14/17 01:46; Admin Dose 83.333 MLS/HR; Start at 02:00 Assessment/Plan Chief Complaint/Hosp Course Assessment: 1. Bacterial endocarditis, severe AR with vegetation noted, 2. Recent klebsiella uti 3. AR PLAN: 1. Continue broad-spectrum antibiotics. 2. Repeat cultures. 3. Echocardiogram.MARAH findings noted. ? CVS surgery consult ? 4. DVT and GI prophylaxis. 5. Outpatient pulmonary function testing. Problems: GABRIEL LAYNE MD, [facility] Jan 14, 2017 11:01
--- NOTE | 2017-01-14 12:03 | PN ---
Date/Time of Note Date/Time of Note DATE: 01/14/17 TIME: 12:02 Assessment/Plan VTE Prophylaxis VTE Prophylaxis Intervention: ambulation Lines/Catheters IV [facility] Saline Lock Assessment/Plan Chief Complaint/Hosp Course 1. Sepsis with underlying Gram-positive bacteremia secondary to acute endocarditis. On antibiotics. Being followed by infectious diseases. 2. Asthmatic bronchitis. Continue inhaled bronchodilators. Continue antibiotics. 3. Severe aortic regurgitation. Cardiac surgery consult has been obtained. 4. Essential hypertension. Continue antihypertensives. 5. Iron deficiency anemia. Continue iron supplements. 6. Dyslipidemia. Continue statins. 7. Mild pneumobilia evident on abdominal CT scan. Pending gastroenterology evaluation. 9. Fluids, electrolytes, and nutrition. Low cholesterol diet. 10. DVT prophylaxis. Ambulation. 11. Plan. Continue current antimicrobials. Await cardiac surgery evaluation. Case discussed with Dr. Castellanos. Problems: Subjective 24 Hr Interval Summary Free Text/Dictation Remains afebrile. S/P MARAH today. Feeling anxious. Exam/Review of Systems Vital Signs Vitals Vital Signs Date Time Temp Pulse Resp B/P Pulse Ox O2 Delivery O2 Flow Rate FiO2 01/14/17 10:50 98.4 67 18 142/64 98 Room Air 01/13/17 20:07 21 Intake and Output 01/13/17 01/13/17 01/14/17 15:00 23:00 07:00 Intake Total 160 ml 1250 ml 650 ml Balance 160 ml 1250 ml 650 ml Exam General: Obese 71 year-old female lying in bed in no apparent distress. HEENT: Normocephalic, atraumatic. Eyes: Anicteric sclerae, conjunctivae clear. ENT: Nasal septum midline, oral mucosa moist. Neck supple, no JVD noticed. Respiratory: Bilaterally clear breath sounds. No use of accessory muscles of respiration. No adventitious breath sounds. Cardiovascular: S1, S2 heard. Grade II/ systolic murmur. +diastolic murmur. Abdomen: Soft, nontender, and nondistended. Bowel sounds positive in all 4 quadrants. Genitourinary: Deferred. Extremities: No cyanosis, no clubbing, no edema. Peripheral pulses palpable. Neurologic: Cranial nerves II through XII grossly intact. The patient is awake, alert, and oriented. Skin: Normal skin turgor. Results Result Diagram: 01/14/17 0523 01/14/17 0524 Results 24 hrs Laboratory Tests Test 01/13/17 14:00 01/14/17 05:23 01/14/17 05:24 Vancomycin Level Trough 11.2 White Blood Count 5.7 Red Blood Count 3.48 L Hemoglobin 9.4 L Hematocrit 29.8 L Mean Corpuscular Volume 85.6 Mean Corpuscular Hemoglobin 27.0 L Mean Corpuscular Hemoglobin Concent 31.5 L Red Cell Distribution Width 16.3 H Platelet Count 191 Mean Platelet Volume 10.1 Neutrophils % 55.0 Lymphocytes % 31.3 Monocytes % 10.9 Eosinophils % 1.8 Basophils % 0.5 Nucleated Red Blood Cells % 0.0 Neutrophils # (Manual) 3.1 Lymphocytes # 1.8 Monocytes # 0.6 Eosinophils # 0.1 Basophils # 0.0 Nucleated Red Blood Cells # 0.0 Sodium Level 137 Potassium Level 4.4 Chloride Level 106 Carbon Dioxide Level 25 Anion Gap 10 Blood Urea Nitrogen 10 Creatinine 0.77 Glucose Level 98 Calcium Level 9.2 Phosphorus Level 4.6 Magnesium Level 1.9 Medications Medications Current Medications Ondansetron HCl (Zofran Tab) 4 mg Q6H PRN PO NAUSEA AND/OR VOMITING; Start 01/11 at 23:00 Acetaminophen (Tylenol Tab) 650 mg Q6H PRN PO PAIN LEVEL 1-3 OR FEVER Last administered on 01/12/17 19:38; Admin Dose 650 MG; Start 01/11/17 at 23:00 Acetaminophen/ Hydrocodone Bitart ([place] (5/325)) 1 tab Q6H PRN PO MODERATE PAIN LEVEL 4-6; Start 01/11/17 at 23:00 Famotidine (Pepcid) 20 mg Q12 PO Last administered on 01/13/17 20:45; Admin Dose 20 MG; Start 01/12/17 at 09:00 Guaifenesin/ Dextromethorphan (Mucinex Dm) 1 tab Q6 PRN PO cough Last administered on 01/12/17 16:12; Admin Dose 1 TAB; Start 01/12/17 at 00:30 Zolpidem Tartrate (Ambien) 5 mg HS PRN PO INSOMNIA Last administered on 22:00; Admin Dose 5 MG; Start 01/12/17 at 01:30 Calcium/Vitamin D ([place]yster [place]/ Vit-D (500/200)) 1 tab DAILY PO Last administered on 01/13/17 09:27; Admin Dose 1 TAB; Start 01/13/17 at 09:00 Atorvastatin Calcium (Lipitor) 20 mg DAILY@21 PO ; Start 01/12/17 at 21:00 Losartan Potassium 50 mg 50 mg DAILY PO Last administered on 01/13/17 09:27; Admin Dose 50 MG; Start 01/12/17 at 09:00 Ferric Sodium Gluconate Complex 125 mg/Sodium Chloride 110 ml @ 100 mls/hr Q24H IVPB Last administered on 01/13/17 13:25; Admin Dose 100 MLS/HR; Start 01/12/17 at 13:00; Stop 01/14/17 at 14:05 Cefepime HCl 50 ml @ 100 mls/hr Q12 IVPB Last administered on 01/14/17 10:46; Admin Dose 100 MLS/HR; Start 01/13/17 at 10:00 Vancomycin HCl/ Sodium Chloride (Vancocin/NS) 250 ml @ 83.333 mls/ hr Q12H IVPB Last administered on 01/14/17 01:46; Admin Dose 83.333 MLS/HR; Start at 02:00 LEÓN ARMENTA NP Jan 14, 2017 12:03
[2017-01-14] MEDS ORDERED: ALPRAZOLAM 0.5 MG TAB PO PRN (12:30)
[2017-01-14] MEDS ORDERED: ALPRAZOLAM 0.25 MG TAB PO PRN (13:15)
[2017-01-14] MEDS: SOD FERRIC GLUC COMPLX 125 MG in SOD CHLORIDE 0.9% 100 ML IVPB SCH (13:45)
--- NOTE | 2017-01-14 15:46 | CONS ---
DATE OF ADMISSION: 01/11/2017 DATE OF CONSULTATION: 01/14/2017 REASON FOR CONSULTATION: Aortic valve endocarditis. HISTORY OF PRESENT ILLNESS: This is a 71-year-old female with a week history of low-grade fever, was seen by Dr. Valverde and sent to the hospital. Workup has included an echocardiogram, which has shown severe aortic regurgitation with endocarditis and mobile mass, 0.75 x 0.5 cm. Left ventricular ejection fraction 60 percent. Ascending aorta mildly dilated 3.5 cm. Patient has been placed on antibiotics which include vancomycin. She is currently afebrile and her white count today is 5.7 with no left shift. She is also hemodynamically stable. Blood pressure of 142/64 and heart rate of 67. PAST MEDICAL HISTORY: Significant for hyperlipidemia, hypertension. PAST SURGICAL HISTORY: Cholecystectomy, ampulla of Vater dilatation, gastric bypass. ALLERGIES: NONE. SOCIAL HISTORY: No smoking, drinking, or drug use. MEDICATION: List as above. REVIEW OF SYSTEMS: As per HPI. PHYSICAL EXAMINATION: VITAL SIGNS: Blood pressure is 142/64, pulse 67, respirations 18, temperature is 98.4, saturation is 98 percent on room air. HEENT: Normocephalic, atraumatic, PERRLA. NECK: Supple. No JVD. No carotid bruits. HEART: Normal S1, S2. A diastolic murmur. LUNGS: Clear. ABDOMEN: Soft. EXTREMITIES: Warm. LABORATORY: Hemoglobin is 9.4, white count is 5.7, platelet counts 191. Normal coagulation factors and a creatinine of 0.77. IMPRESSION: 1. Aortic regurgitation. 2. Aortic valve vegetation consistent with endocarditis. 3. Sepsis which has now resolved. RECOMMENDATIONS: This patient will need aortic valve replacement. She does have a small vegetation. However, my preference is to continue antibiotics for a period of up to 4 to 5 more weeks if possible to finish a course of 6 weeks of antibiotics prior to placement of a new valve. The patient will also need a dental examination to rule out any dental caries and/or dental abscesses. Will also need a CT angiogram to evaluate the coronary arteries prior to aortic valve replacement. Discussed with the patient. We will discuss with the referring physicians. Dictated By: Spencer Mason MD /charisma/addy /Document#: [id number]
[2017-01-14] MEDS ORDERED: CEFTRIAXONE 1 GM/50 ML (PMX) 50 ML IVPB SCH ×2 (16:00→18:30)
--- NOTE | 2017-01-14 18:50 | PN ---
DATE: 01/14/2017 SUBJECTIVE: No acute events overnight. Patient is alert, feels better, looks comfortable. She is eating lunch. No fever. Temperature 97.6, pulse 62, respirations 16, blood pressure 138/65, saturation 99 percent. WBC 5.7, no shift, no bands. BUN 10, creatinine 0.77. MICROBIOLOGY: Blood culture growing alpha-hemolytic streptococcus species, viridans group, with sensitivities still pending. ANTIMICROBIALS: Patient is on vancomycin and cefepime. PHYSICAL EXAMINATION: GENERAL: Well-developed obese elderly woman who is alert, in no distress. HEENT: Head atraumatic, normocephalic. Sclerae anicteric. Buccal mucosa pink. NECK: Supple. CHEST: Rise symmetrical. Breath sounds clear. HEART: S1, S2. ABDOMEN: Soft. Bowel sounds present. EXTREMITIES: Without cyanosis. ASSESSMENT: 1. Streptococcal bacteremia secondary to acute bacterial endocarditis. 2. Aortic valve vegetation as per transesophageal echocardiogram this morning. 3. Status post pneumonia. 4. Morbid obesity, status post gastric bypass. 5. History of squamous cell carcinoma of the skin, surgically removed. 6. History of cholecystectomy. PLAN: Patient remains stable. She is being seen by Cardiology and Cardiothoracic Surgery. Plan to send her home with IV antibiotics for 6 weeks, follow up with Dr. Mason for valve replacement. We are going to change cefepime to Rocephin. Consider PICC line placement and arrangement for home health with manager of case. Final recommendations for discharge antibiotics follow after sensitivities. Dictated By: Tushar Hughes NP /charisma/alycia /Document#: [id number]
[2017-01-14] MEDS: ATORVASTATIN 20 MG TAB PO SCH (21:00)
[2017-01-14] MEDS: ZOLPIDEM 5 MG TAB PO PRN (22:15)
[2017-01-15 02:00] VITALS: BP 128/60; RESP 18
[2017-01-15] MEDS: VANCOMYCIN 1.25 GM in SOD CHLORIDE 0.9% 250 ML IVPB SCH (02:05)
[2017-01-15 06:09] LABS: BASOPHILS % 0.5 % (0.0-2.0); EOSINOPHILS # 0.1 10^3/ul (0.0-0.5); EOSINOPHILS % 1.5 % (0.0-7.0); HEMATOCRIT 28.5 % (37.0-47.0); HEMOGLOBIN 9.3 g/dl (12.0-16.0); LYMPHOCYTES % 32.9 % (15.0-51.0); MEAN CORPUSCULAR HEMOGLOBIN 28.3 pg (29.0-33.0); MEAN CORPUSCULAR HGB CONC 32.6 g/dl (32.0-37.0); MEAN CORPUSCULAR VOLUME 86.6 fl (82.0-101.0); MEAN PLATELET VOLUME 9.8 fl (7.4-10.4); MONOCYTE # 0.7 10^3/ul (0.3-0.9); MONOCYTES % 10.5 % (0.0-11.0); PLATELET COUNT 197 10^3/UL (140-415); RED BLOOD COUNT 3.29 10^6/ul (4.20-5.40); RED CELL DISTRIBUTION WIDTH 16.5 % (11.5-14.5); WHITE BLOOD COUNT 6.2 10^3/ul (4.8-10.8)
[2017-01-15 06:44] LABS: ALBUMIN/GLOBULIN RATIO 0.96; BILIRUBIN,INDIRECT 0.2 mg/dl (0-1.1); BILIRUBIN,TOTAL 0.2 mg/dl (0.2-1.3); CREATININE 0.73 mg/dl (0.44-1.00); POTASSIUM 4.3 mmol/L (3.5-5.1); TOTAL PROTEIN 6.1 g/dl (6.1-8.1)
[2017-01-15 06:46] LABS: MAGNESIUM 1.8 mg/dl (1.7-2.5); PHOSPHORUS 3.9 mg/dl (2.5-4.9)
[2017-01-15] MEDS: ACETAMINOPHEN 325 MG TAB PO PRN ×2 (07:29→20:15)
[2017-01-15 08:08] VITALS: BP 129/61; RESP 16; RESP 18
[2017-01-15] MEDS: BUDESONIDE (NEB) 0.5MG/2ML AMP HHN SCH ×2 (08:18→20:24)
[2017-01-15] MEDS: FAMOTIDINE 20 MG TAB PO SCH ×2 (08:39→20:15)
[2017-01-15] MEDS: CALCIUM/VITAMIN D (500/200) TAB PO SCH (08:39)
[2017-01-15] MEDS: LOSARTAN 50 MG TAB PO SCH (08:40)
[2017-01-15] MEDS ORDERED: LIDOCAINE 1% (MPF) 5 ML VIAL SC ONE (10:00)
--- NOTE | 2017-01-15 10:31 | PN ---
Date/Time of Note Date/Time of Note DATE: 01/15/17 TIME: 10:30 Assessment/Plan VTE Prophylaxis VTE Prophylaxis Intervention: ambulation Lines/Catheters IV Catheter Type (from [facility]): Saline Lock Assessment/Plan Chief Complaint/Hosp Course 1. Sepsis with underlying Gram-positive bacteremia secondary to acute endocarditis. On antibiotics. Being followed by infectious diseases. 2. Asthmatic bronchitis. Continue inhaled bronchodilators. Continue antibiotics. 3. Severe aortic regurgitation. Cardiac surgery evaluated the patient. Neurosurgery recommended completion of IV antibiotic therapy and full dental checkup and treatment for any dental caries prior to any surgical intervention. 4. Essential hypertension. Continue antihypertensives. 5. Iron deficiency anemia. Continue iron supplements. 6. Dyslipidemia. Continue statins. 7. Mild pneumobilia evident on abdominal CT scan. Gastroenterology was consulted, but this could be a nonspecific finding. 9. Fluids, electrolytes, and nutrition. Low cholesterol diet. 10. DVT prophylaxis. Ambulation. 11. Plan. Continue current antimicrobials. PICC line insertion ordered for long-term antibiotic therapy. Case discussed with Dr. Castellanos. Problems: Subjective 24 Hr Interval Summary Free Text/Dictation Remains afebrile. Exam/Review of Systems Vital Signs Vitals Vital Signs Date Time Temp Pulse Resp B/P Pulse Ox O2 Delivery O2 Flow Rate FiO2 01/15/17 08:19 74 20 97 21 01/15/17 08:08 98.4 129/61 01/14/17 13:15 Room Air Intake and Output 01/14/17 01/14/17 01/15/17 15:00 23:00 07:00 Intake Total 260 ml 1360 ml 250 ml Output Total 100 ml Balance 260 ml 1260 ml 250 ml Exam General: Obese 71 year-old female lying in bed in no apparent distress. HEENT: Normocephalic, atraumatic. Eyes: Anicteric sclerae, conjunctivae clear. ENT: Nasal septum midline, oral mucosa moist. Neck supple, no JVD noticed. Respiratory: Bilaterally clear breath sounds. No use of accessory muscles of respiration. No adventitious breath sounds. Cardiovascular: S1, S2 heard. Grade II/ systolic murmur. +diastolic murmur. Abdomen: Soft, nontender, and nondistended. Bowel sounds positive in all 4 quadrants. Genitourinary: Deferred. Extremities: No cyanosis, no clubbing, no edema. Peripheral pulses palpable. Neurologic: Cranial nerves II through XII grossly intact. The patient is awake, alert, and oriented. Skin: Normal skin turgor. Results Result Diagram: 01/15/1739 01/15/17 0539 Results 24 hrs Laboratory Tests Test 01/15/17 05:39 White Blood Count 6.2 Red Blood Count 3.29 L Hemoglobin 9.3 L Hematocrit 28.5 L Mean Corpuscular Volume 86.6 Mean Corpuscular Hemoglobin 28.3 L Mean Corpuscular Hemoglobin Concent 32.6 Red Cell Distribution Width 16.5 H Platelet Count 197 Mean Platelet Volume 9.8 Neutrophils % 54.0 Lymphocytes % 32.9 Monocytes % 10.5 Eosinophils % 1.5 Basophils % 0.5 Nucleated Red Blood Cells % 0.0 Neutrophils # (Manual) 3.4 Lymphocytes # 2.0 Monocytes # 0.7 Eosinophils # 0.1 Basophils # 0.0 Nucleated Red Blood Cells # 0.0 Sodium Level 136 Potassium Level 4.3 Chloride Level 107 Carbon Dioxide Level 25 Anion Gap 8 Blood Urea Nitrogen 10 Creatinine 0.73 Glucose Level 95 Calcium Level 9.0 Phosphorus Level 3.9 Magnesium Level 1.8 Total Bilirubin 0.2 Direct Bilirubin 0.00 Indirect Bilirubin 0.2 Aspartate Amino Transf (AST/SGOT) 38 Alanine Aminotransferase (ALT/SGPT) 49 Alkaline Phosphatase 80 Total Protein 6.1 Albumin 3.0 L Globulin 3.10 Albumin/Globulin Ratio 0.96 Medications Medications Current Medications Ondansetron HCl (Zofran Tab) 4 mg Q6H PRN PO NAUSEA AND/OR VOMITING; Start 01/11 at 23:00 Acetaminophen (Tylenol Tab) 650 mg Q6H PRN PO PAIN LEVEL 1-3 OR FEVER Last administered on 01/15/17 07:29; Admin Dose 650 MG; Start 01/11/17 at 23:00 Acetaminophen/ Hydrocodone Bitart ([place] (5/325)) 1 tab Q6H PRN PO MODERATE PAIN LEVEL 4-6; Start 01/11/17 at 23:00 Famotidine (Pepcid) 20 mg Q12 PO Last administered on 01/15/17 08:39; Admin Dose 20 MG; Start 01/12/17 at 09:00 Guaifenesin/ Dextromethorphan (Mucinex Dm) 1 tab Q6 PRN PO cough Last administered on 01/12/17 16:12; Admin Dose 1 TAB; Start 01/12/17 at 00:30 Zolpidem Tartrate (Ambien) 5 mg HS PRN PO INSOMNIA Last administered on 22:15; Admin Dose 5 MG; Start 01/12/17 at 01:30 Calcium/Vitamin D (Oyster Shell/ Vit-D (500/200)) 1 tab DAILY PO Last administered on 01/15/17 08:39; Admin Dose 1 TAB; Start 01/13/17 at 09:00 Atorvastatin Calcium (Lipitor) 20 mg DAILY@21 PO ; Start 01/12/17 at 21:00 Losartan Potassium 50 mg 50 mg DAILY PO Last administered on 01/15/17 08:40; Admin Dose 50 MG; Start 01/12/17 at 09:00 Vancomycin HCl/ Sodium Chloride (Vancocin/NS) 250 ml @ 83.333 mls/ hr Q12H IVPB Last administered on 01/15/17 02:05; Admin Dose 83.333 MLS/HR; Start at 02:00 Alprazolam (Xanax) 0.5 mg Q8H PRN PO ANXIETY Last administered on 01/14/17 13: 44; Admin Dose 0.5 MG; Start 01/14/17 at 13:15 Miscellaneous Information VANCO TROUGH @ 1,300 ON... ONCE ONCE XX ; Start 01/15 at 13:00; Stop 01/15/17 at 13:01 Ceftriaxone Sodium (Rocephin) 50 ml @ 100 mls/hr Q24H IVPB Last administered on 01/14/17 18:25; Admin Dose 100 MLS/HR; Start 01/14/17 at 18:30 LEÓN ARMENTA NP Jan 15, 2017 10:31
--- NOTE | 2017-01-15 11:01 | PN ---
Date/Time of Note Date/Time of Note DATE: 01/15/17 TIME: 11:00 Assessment/Plan Lines/Catheters IV Catheter Type (from [facility]): Saline Lock Assessment/Plan Chief Complaint/Hosp Course IMPRESSION: 1. Aortic regurgitation. 2. Aortic valve vegetation consistent with endocarditis. 3. Sepsis which has now resolved. RECOMMENDATIONS: This patient will need aortic valve replacement. She does have a small vegetation. However, my preference is to continue antibiotics for a period of up to 4 to 5 more weeks if possible to finish a course of 6 weeks of antibiotics prior to placement of a new valve. The patient will also need a dental examination to rule out any dental caries and/or dental abscesses. Will also need a CTA or Angio to evaluate the coronary arteries prior to aortic valve replacement. Discussed with the patient. We will discuss with the referring physicians. Problems: Subjective 24 Hr Interval Summary Constitutional: improved Pain Control: mild Exam/Review of Systems Vital Signs Vitals Vital Signs Date Time Temp Pulse Resp B/P Pulse Ox O2 Delivery O2 Flow Rate FiO2 01/15/17 08:19 74 20 97 21 01/15/17 08:08 98.4 129/61 01/14/17 13:15 Room Air Intake and Output 01/14/17 01/14/17 01/15/17 14:59 22:59 06:59 Intake Total 260 ml 1360 ml 250 ml Output Total 100 ml Balance 260 ml 1260 ml 250 ml Exam ENMT: mucosa pink and moist, nl external ears & nose, nl lips & teeth, nl nasal mucosa & septum Neck: non-tender, supple Respiratory: clear to auscultation, normal air movement Cardiovascular: nl pulses, regular rate and rhythm Results Result Diagram: 01/15/17 0539 01/15/17 0539 ROBINSON GREENBERG MD Jan 15, 2017 11:01
[2017-01-15] MEDS ORDERED: GENTAMICIN IV PER PHARMACY XX SCH (11:30)
--- NOTE | 2017-01-15 12:54 | CONS ---
Date/Time of Note Date/Time of Note DATE: 01/15/17 TIME: 12:51 Assessment/Plan Assessment/Plan Chief Complaint/Hosp Course Viridans aortic valve endocarditis: Confirmed by MARAH. Severe aortic regurgitation with likely perforated valve. Needs AVR. Seen by Dr. Mason and will have surgery in 4-6 weeks after antibiotics Acute diastolic/valvular heart failure: Mild by exam, possibly from AV regurgitation in setting of IVF resuscitation. Now resolved. HTN HL Prior gastric bypass -ok for d/c -f/u with me 1-2 weeks. Will have outpt cardiac CT to eval for CAD -no lasix at this time -antibiotics and PICC line per PMD/ID Problems: Consultation Date/Type/Reason Admit Date/Time Jan 11, 2017 at 22:32 Initial Consult Date 01/13/17 Type of Consultation: Cardiology Referring Provider: LEÓN ARMENTA NP 24 HR Interval Summary Free Text/Dictation No o/n events. Feels well. Exam/Review of Systems Vital Signs Vitals Vital Signs Date Time Temp Pulse Resp B/P Pulse Ox O2 Delivery O2 Flow Rate FiO2 01/15/17 08:19 74 20 97 21 01/15/17 08:08 98.4 129/61 01/14/17 13:15 Room Air Intake and Output 01/14/17 01/14/17 01/15/17 15:00 23:00 07:00 Intake Total 260 ml 1360 ml 250 ml Output Total 100 ml Balance 260 ml 1260 ml 250 ml Exam Constitutional: alert, oriented, well developed Psych: nl mood/affect, no complaints Head: atraumatic, normocephalic Neck: No jvd Respiratory: clear to auscultation, No crackles/rales Cardiovascular: regular rate and rhythm, systolic murmur (2/6 MI, 2/4 diastolic ), No edema Gastrointestinal: non-tender, soft Neurological: nl mental status, nl speech Results Result Diagram: 01/15/17 0539 01/15/17 0539 Results 24 hrs Laboratory Tests Test 01/15/17 05:39 White Blood Count 6.2 Red Blood Count 3.29 L Hemoglobin 9.3 L Hematocrit 28.5 L Mean Corpuscular Volume 86.6 Mean Corpuscular Hemoglobin 28.3 L Mean Corpuscular Hemoglobin Concent 32.6 Red Cell Distribution Width 16.5 H Platelet Count 197 Mean Platelet Volume 9.8 Neutrophils % 54.0 Lymphocytes % 32.9 Monocytes % 10.5 Eosinophils % 1.5 Basophils % 0.5 Nucleated Red Blood Cells % 0.0 Neutrophils # (Manual) 3.4 Lymphocytes # 2.0 Monocytes # 0.7 Eosinophils # 0.1 Basophils # 0.0 Nucleated Red Blood Cells # 0.0 Sodium Level 136 Potassium Level 4.3 Chloride Level 107 Carbon Dioxide Level 25 Anion Gap 8 Blood Urea Nitrogen 10 Creatinine 0.73 Glucose Level 95 Calcium Level 9.0 Phosphorus Level 3.9 Magnesium Level 1.8 Total Bilirubin 0.2 Direct Bilirubin 0.00 Indirect Bilirubin 0.2 Aspartate Amino Transf (AST/SGOT) 38 Alanine Aminotransferase (ALT/SGPT) 49 Alkaline Phosphatase 80 Total Protein 6.1 Albumin 3.0 L Globulin 3.10 Albumin/Globulin Ratio 0.96 Medications Medications Current Medications Ondansetron HCl (Zofran Tab) 4 mg Q6H PRN PO NAUSEA AND/OR VOMITING; Start 01/11 at 23:00 Acetaminophen (Tylenol Tab) 650 mg Q6H PRN PO PAIN LEVEL 1-3 OR FEVER Last administered on 01/15/17 07:29; Admin Dose 650 MG; Start 01/11/17 at 23:00 Acetaminophen/ Hydrocodone Bitart ([place] (5/325)) 1 tab Q6H PRN PO MODERATE PAIN LEVEL 4-6; Start 01/11/17 at 23:00 Famotidine (Pepcid) 20 mg Q12 PO Last administered on 01/15/17 08:39; Admin Dose 20 MG; Start 01/12/17 at 09:00 Guaifenesin/ Dextromethorphan (Mucinex Dm) 1 tab Q6 PRN PO cough Last administered on 01/12/17 16:12; Admin Dose 1 TAB; Start 01/12/17 at 00:30 Zolpidem Tartrate (Ambien) 5 mg HS PRN PO INSOMNIA Last administered on 22:15; Admin Dose 5 MG; Start 01/12/17 at 01:30 Calcium/Vitamin D (Oyster Shell/ Vit-D (500/200)) 1 tab DAILY PO Last administered on 01/15/17 08:39; Admin Dose 1 TAB; Start 01/13/17 at 09:00 Atorvastatin Calcium (Lipitor) 20 mg DAILY@21 PO ; Start 01/12/17 at 21:00 Losartan Potassium (Cozaar) 50 mg DAILY PO Last administered on 01/15/17 08:40 ; Admin Dose 50 MG; Start 01/12/17 at 09:00 Alprazolam 0.5 mg 0.5 mg Q8H PRN PO ANXIETY Last administered on 01/14/17 13:44 ; Admin Dose 0.5 MG; Start 01/14/17 at 13:15 Ceftriaxone Sodium (Rocephin) 50 ml @ 100 mls/hr Q24H IVPB Last administered on 01/14/17 18:25; Admin Dose 100 MLS/HR; Start 01/14/17 at 18:30 Gentamicin Sulfate GENTAMICIN PER PHARMACY NOTE XX ; Start 01/15/17 at 11:30 Gentamicin Sulfate/Sodium Chloride (Gentamicin/NS) 109.75 ml @ 109.75 mls/hr Q36H IVPB ; Start 01/15/17 at 13:00 Miscellaneous Information (*Rx Drug Level Order Reminder*) GENT RANDOM @ 2,300 ON... ONCE ONCE XX ; Start 01/15/17 at 23:00; Stop 01/15/17 at 23:01 MARY ANNE FULLER Jan 15, 2017 12:54
[2017-01-15] MEDS ORDERED: SOD CHLORIDE 0.9% IVPB SCH ×2 (13:00→15:30)
[2017-01-15] MEDS ORDERED: GENTAMICIN IVPB SCH ×2 (13:00→15:30)
[2017-01-15 14:00] VITALS: BP 129/58; RESP 16
--- NOTE | 2017-01-15 14:26 | CONS ---
Date/Time of Note Date/Time of Note DATE: 01/15/17 TIME: 13:54 Consult Date/Type/Reason Admit Date/Time Jan 11, 2017 at 22:32 Initial Consult Date 01/13/17 Type of Consultation: pulm Ordering Provider: LEÓN ARMENTA SAND MILLER Subjective Patient remains comfortable no new events. Pending PICC line. Objective Vital Signs Date Time Temp Pulse Resp B/P Pulse Ox O2 Delivery O2 Flow Rate FiO2 01/15/17 08:19 74 20 97 21 01/15/17 08:08 98.4 129/61 01/14/17 13:15 Room Air Intake and Output 01/14/17 01/14/17 01/15/17 15:00 23:00 07:00 Intake Total 260 ml 1360 ml 250 ml Output Total 100 ml Balance 260 ml 1260 ml 250 ml Exam VITAL SIGNS: NECK: Supple. No JVD. No lymphadenopathy. CARDIAC: S1, S2. No added sounds or murmurs. CHEST: Diminished air entry bilaterally. ABDOMEN: Soft, nontender. No guarding or rebound. EXTREMITIES: No cyanosis, clubbing, edema. NEUROLOGICALLY: No focal deficits. Results/Medications Result Diagram: 01/15/17 0539 01/15/17 0539 Results 24 hrs Laboratory Tests Test 01/15/17 05:39 White Blood Count 6.2 Red Blood Count 3.29 L Hemoglobin 9.3 L Hematocrit 28.5 L Mean Corpuscular Volume 86.6 Mean Corpuscular Hemoglobin 28.3 L Mean Corpuscular Hemoglobin Concent 32.6 Red Cell Distribution Width 16.5 H Platelet Count 197 Mean Platelet Volume 9.8 Neutrophils % 54.0 Lymphocytes % 32.9 Monocytes % 10.5 Eosinophils % 1.5 Basophils % 0.5 Nucleated Red Blood Cells % 0.0 Neutrophils # (Manual) 3.4 Lymphocytes # 2.0 Monocytes # 0.7 Eosinophils # 0.1 Basophils # 0.0 Nucleated Red Blood Cells # 0.0 Sodium Level 136 Potassium Level 4.3 Chloride Level 107 Carbon Dioxide Level 25 Anion Gap 8 Blood Urea Nitrogen 10 Creatinine 0.73 Glucose Level 95 Calcium Level 9.0 Phosphorus Level 3.9 Magnesium Level 1.8 Total Bilirubin 0.2 Direct Bilirubin 0.00 Indirect Bilirubin 0.2 Aspartate Amino Transf (AST/SGOT) 38 Alanine Aminotransferase (ALT/SGPT) 49 Alkaline Phosphatase 80 Total Protein 6.1 Albumin 3.0 L Globulin 3.10 Albumin/Globulin Ratio 0.96 Medications Current Medications Ondansetron HCl (Zofran Tab) 4 mg Q6H PRN PO NAUSEA AND/OR VOMITING; Start 01/11 at 23:00 Acetaminophen (Tylenol Tab) 650 mg Q6H PRN PO PAIN LEVEL 1-3 OR FEVER Last administered on 01/15/17 07:29; Admin Dose 650 MG; Start 01/11/17 at 23:00 Acetaminophen/ Hydrocodone Bitart ([place] (5/325)) 1 tab Q6H PRN PO MODERATE PAIN LEVEL 4-6; Start 01/11/17 at 23:00 Famotidine (Pepcid) 20 mg Q12 PO Last administered on 01/15/17 08:39; Admin Dose 20 MG; Start 01/12/17 at 09:00 Guaifenesin/ Dextromethorphan (Mucinex Dm) 1 tab Q6 PRN PO cough Last administered on 01/12/17 16:12; Admin Dose 1 TAB; Start 01/12/17 at 00:30 Zolpidem Tartrate (Ambien) 5 mg HS PRN PO INSOMNIA Last administered on 22:15; Admin Dose 5 MG; Start 01/12/17 at 01:30 Calcium/Vitamin D (Oyster Shell/ Vit-D (500/200)) 1 tab DAILY PO Last administered on 01/15/17 08:39; Admin Dose 1 TAB; Start 01/13/17 at 09:00 Atorvastatin Calcium (Lipitor) 20 mg DAILY@21 PO ; Start 01/12/17 at 21:00 Losartan Potassium (Cozaar) 50 mg DAILY PO Last administered on 01/15/17 08:40 ; Admin Dose 50 MG; Start 01/12/17 at 09:00 Alprazolam (Xanax) 0.5 mg Q8H PRN PO ANXIETY Last administered on 01/14/17 13: 44; Admin Dose 0.5 MG; Start 01/14/17 at 13:15 Gentamicin Sulfate GENTAMICIN PER PHARMACY NOTE XX ; Start 01/15/17 at 11:30 Gentamicin Sulfate 230 mg/ Sodium Chloride 105.75 ml @ 103.75 mls/hr Q24H IVPB ; Start 01/15/17 at 15:30 Ceftriaxone Sodium (Rocephin) 50 ml @ 100 mls/hr Q24H IVPB ; Start 01/15/17 at 18:00 Assessment/Plan Chief Complaint/Hosp Course Assessment: 1. Bacterial endocarditis, severe AR with vegetation noted, 2. Recent klebsiella uti 3. AR PLAN: 1. Continue broad-spectrum antibiotics. 2. Repeat cultures. 3. Echocardiogram.MARAH findings noted. Pending PICC line, will likely need 6 weeks of antibiotics. 4. DVT and GI prophylaxis. 5. Outpatient pulmonary function testing. Problems: GABRIEL LAYNE MD, [facility] Jan 15, 2017 14:04
--- NOTE | 2017-01-15 17:38 | RADRPT ---
PROCEDURE: US guidance for PICC line CLINICAL INDICATION: PICC line placement TECHNIQUE: Multiple real-time images were acquired of the patient's arm utilizing a high resolutio n transducer. This was performed by the PICC line nurse for venous access. COMPARISON: None FINDINGS: Ultrasound guidance for PICC line placement. IMPRESSION: Ultrasound guidance for PICC line placement. RPTAT: AA .Surendra Villeda MD, MD Date Time Electronically viewed and signed by .Surendra Villeda MD, on 01/15/2017 17:38 .S/
--- NOTE | 2017-01-15 17:53 | RADRPT ---
PROCEDURE: XR Chest. CLINICAL INDICATION: Check PICC line position. TECHNIQUE: Single frontal view. COMPARISON: 01/11/2017. FINDINGS: There is a right arm PICC line with the tip in the lower superior vena cava. The lungs are clear. The heart size is normal. There is no pleural effusion. There is no pneumothorax. IMPRESSION: 1. Right arm PICC line tip in satisfactory position. 2. Otherwise normal chest radiograph. RPTAT: QQ .Giovany Rivers MD, MD Date Time Electronically viewed and signed by .Giovany Rivers MD, MD on 01/15/2017 17:52 .R/
[2017-01-15] MEDS ORDERED: CEFTRIAXONE 2 GM/50 ML (PMX) 50 ML IVPB SCH (18:00)
[2017-01-15 19:33] VITALS: BP 135/61; RESP 20
[2017-01-15] MEDS: ATORVASTATIN 20 MG TAB PO SCH (20:15)
[2017-01-15 21:23] LABS: HISTOPLASMA GALACTOMANNAN AG U <0.5 ng/mL
--- NOTE | 2017-01-15 22:41 | PN ---
DATE: SUBJECTIVE DATA: No acute changes overnight. Patient is alert, feels better, looks comfortable. She is afebrile. LABORATORY AND DIAGNOSTIC DATA: WBC 6.2, no shift, no bands. BUN 10, creatinine 0.73. ANTIMICROBIALS: Patient is on IV Rocephin and gentamicin. PHYSICAL EXAMINATION: GENERAL: Obese, well-developed elderly woman who is alert, in no distress. HEENT: Head atraumatic, normocephalic. Sclerae anicteric. Buccal mucosa pink. NECK: Supple. CHEST: Rise symmetrical. Breath sounds clear. HEART: S1, S2. ABDOMEN: Soft, bowel sounds present. EXTREMITIES: Without cyanosis. ASSESSMENT: 1. Acute bacterial endocarditis. 2. Aortic valve vegetations. 3. Systemic inflammatory response syndrome secondary to that. 4. Status post gastric bypass. 5. History of squamous cell carcinoma of the skin, surgically removed. PLAN: 1. Patient remains stable as per Cardiology and Cardiothoracic Surgery recommendations. Will be discharged home on antibiotics for six weeks intravenously and then will require valve replacement after antibiotics completed. We will send her home on IV Rocephin 2 grams daily for six weeks, as well as gentamicin 3 mg/kg IV daily for 2-4 weeks with close monitoring of her renal function. 2. Discussed with Dr. Ayoub. 3. Discussed with patient at bedside. Dictated By: Tushar Hughes NP /charisma/arielle /Document#: [id number]
[2017-01-16 02:38] VITALS: BP 125/69; RESP 18
[2017-01-16 07:36] VITALS: BP 150/67; RESP 18
[2017-01-16] MEDS: BUDESONIDE (NEB) 0.5MG/2ML AMP HHN SCH (08:31)
[2017-01-16] MEDS: FAMOTIDINE 20 MG TAB PO SCH (08:55)
[2017-01-16] MEDS: CALCIUM/VITAMIN D (500/200) TAB PO SCH (08:55)
[2017-01-16] MEDS: LOSARTAN 50 MG TAB PO SCH (08:56)
--- NOTE | 2017-01-16 10:00 | CONS ---
Date/Time of Note Date/Time of Note DATE: 01/16/17 TIME: 10:00 Assessment/Plan Assessment/Plan Chief Complaint/Hosp Course Viridans aortic valve endocarditis: Confirmed by MARAH. Severe aortic regurgitation with likely perforated valve. Needs AVR. Seen by Dr. Mason and will have surgery in 4-6 weeks after antibiotics Acute diastolic/valvular heart failure: Mild by exam, possibly from AV regurgitation in setting of IVF resuscitation. Now resolved. HTN HL Prior gastric bypass -ok for d/c -f/u with me 1-2 weeks. Will have outpt cardiac CT to eval for CAD -no lasix at this time -antibiotics per PMD/ID Problems: Consultation Date/Type/Reason Admit Date/Time Jan 11, 2017 at 22:32 Initial Consult Date 01/13/17 Type of Consultation: Cardiology Referring Provider: LEÓN ARMENTA NP 24 HR Interval Summary Free Text/Dictation No o/n events. s/p PICC. Awaiting discharge Exam/Review of Systems Vital Signs Vitals Vital Signs Date Time Temp Pulse Resp B/P Pulse Ox O2 Delivery O2 Flow Rate FiO2 01/16/17 07:36 98.8 71 18 150/67 97 01/15/17 08:19 21 01/14/17 13:15 Room Air Intake and Output 01/15/17 01/15/17 01/16/17 15:00 23:00 07:00 Intake Total 1355.75 ml Balance 1355.75 ml Exam Constitutional: alert, oriented Psych: nl mood/affect, no complaints Head: atraumatic, normocephalic Neck: No jvd Respiratory: clear to auscultation, No crackles/rales Cardiovascular: regular rate and rhythm, No edema Gastrointestinal: non-tender, soft Neurological: nl mental status, nl speech Results Result Diagram: 01/15/17 0539 01/15/17 0539 Medications Medications Current Medications Ondansetron HCl (Zofran Tab) 4 mg Q6H PRN PO NAUSEA AND/OR VOMITING; Start 01/11 at 23:00 Acetaminophen (Tylenol Tab) 650 mg Q6H PRN PO PAIN LEVEL 1-3 OR FEVER Last administered on 01/15/17t 20:15; Admin Dose 650 MG; Start 01/11/17 at 23:00 Acetaminophen/ Hydrocodone Bitart ([place] (5/325)) 1 tab Q6H PRN PO MODERATE PAIN LEVEL 4-6; Start 01/11/17 at 23:00 Famotidine (Pepcid) 20 mg Q12 PO Last administered on 01/16/17 08:55; Admin Dose 20 MG; Start 01/12/17 at 09:00 Guaifenesin/ Dextromethorphan (Mucinex Dm) 1 tab Q6 PRN PO cough Last administered on 01/12/17 16:12; Admin Dose 1 TAB; Start 01/12/17 at 00:30 Zolpidem Tartrate (Ambien) 5 mg HS PRN PO INSOMNIA Last administered on 22:15; Admin Dose 5 MG; Start 01/12/17 at 01:30 Calcium/Vitamin D (Oyster Shell/ Vit-D (500/200)) 1 tab DAILY PO Last administered on 01/16/17 08:55; Admin Dose 1 TAB; Start 01/13/17 at 09:00 Atorvastatin Calcium (Lipitor) 20 mg DAILY@21 PO Last administered on 01/15/17 20:15; Admin Dose 20 MG; Start 01/12/17 at 21:00 Losartan Potassium (Cozaar) 50 mg DAILY PO Last administered on 01/16/17 08:56 ; Admin Dose 50 MG; Start 01/12/17 at 09:00 Alprazolam (Xanax) 0.5 mg Q8H PRN PO ANXIETY Last administered on 01/14/17 13: 44; Admin Dose 0.5 MG; Start 01/14/17 at 13:15 Gentamicin Sulfate GENTAMICIN PER PHARMACY NOTE XX ; Start 01/15/17 at 11:30 Gentamicin Sulfate 230 mg/ Sodium Chloride 105.75 ml @ 103.75 mls/hr Q24H IVPB Last administered on 01/15/17 18:45; Admin Dose 103.75 MLS/HR; Start 01/15/17 at 15:30 Ceftriaxone Sodium (Rocephin) 50 ml @ 100 mls/hr Q24H IVPB Last administered on 01/15/17 18:10; Admin Dose 100 MLS/HR; Start 01/15/17 at 18:00 MARY ANNE FULLER Jan 16, 2017 10:00
--- NOTE | 2017-01-16 10:34 | CONS ---
Date/Time of Note Date/Time of Note DATE: 01/16/17 TIME: 10:32 Consult Date/Type/Reason Admit Date/Time Jan 11, 2017 at 22:32 Initial Consult Date 01/13/17 Type of Consultation: Pulm Ordering Provider: LEÓN ARMENTA [employer] Subjective comfortable, no shortness of breath, Objective Vital Signs Date Time Temp Pulse Resp B/P Pulse Ox O2 Delivery O2 Flow Rate FiO2 01/16/17 07:36 98.8 71 18 150/67 97 01/15/17 08:19 21 01/14/17 13:15 Room Air Intake and Output 01/15/17 01/15/17 01/16/17 15:00 23:00 07:00 Intake Total 1355.75 ml Balance 1355.75 ml Exam VITAL SIGNS: NECK: Supple. No JVD. No lymphadenopathy. CARDIAC: S1, S2. No added sounds or murmurs. CHEST: Diminished air entry bilaterally. ABDOMEN: Soft, nontender. No guarding or rebound. EXTREMITIES: No cyanosis, clubbing, edema. NEUROLOGICALLY: No focal deficits. Results/Medications Result Diagram: 01/15/17 0539 01/15/17 0539 Medications Current Medications Ondansetron HCl (Zofran Tab) 4 mg Q6H PRN PO NAUSEA AND/OR VOMITING; Start 01/11 at 23:00 Acetaminophen (Tylenol Tab) 650 mg Q6H PRN PO PAIN LEVEL 1-3 OR FEVER Last administered on 01/15/17 20:15; Admin Dose 650 MG; Start 01/11/17 at 23:00 Acetaminophen/ Hydrocodone Bitart ([place] (5/325)) 1 tab Q6H PRN PO MODERATE PAIN LEVEL 4-6; Start 01/11/17 at 23:00 Famotidine (Pepcid) 20 mg Q12 PO Last administered on 01/16/17 08:55; Admin Dose 20 MG; Start 01/12/17 at 09:00 Guaifenesin/ Dextromethorphan (Mucinex Dm) 1 tab Q6 PRN PO cough Last administered on 01/12/17 16:12; Admin Dose 1 TAB; Start 01/12/17 at 00:30 Zolpidem Tartrate (Ambien) 5 mg HS PRN PO INSOMNIA Last administered on 9/7/ 17at 22:15; Admin Dose 5 MG; Start 01/12/17 at 01:30 Calcium/Vitamin D (Oyster Shell/ Vit-D (500/200)) 1 tab DAILY PO Last administered on 01/16/17 08:55; Admin Dose 1 TAB; Start 01/13/17 at 09:00 Atorvastatin Calcium (Lipitor) 20 mg DAILY@21 PO Last administered on 01/15/17 20:15; Admin Dose 20 MG; Start 01/12/17 at 21:00 Losartan Potassium (Cozaar) 50 mg DAILY PO Last administered on 01/16/17 08:56 ; Admin Dose 50 MG; Start 01/12/17 at 09:00 Alprazolam (Xanax) 0.5 mg Q8H PRN PO ANXIETY Last administered on 01/14/17 13: 44; Admin Dose 0.5 MG; Start 01/14/17 at 13:15 Gentamicin Sulfate GENTAMICIN PER PHARMACY NOTE XX ; Start 01/15/17 at 11:30 Ceftriaxone Sodium 50 ml @ 100 mls/hr Q24H IVPB Last administered on 01/15/17 18:10; Admin Dose 100 MLS/HR; Start 01/15/17 at 18:00 Gentamicin Sulfate/Sodium Chloride (Gentamicin/NS) 105.75 ml @ 103.75 mls/hr Q24H IVPB ; Start 01/16/17 at 18:00 Miscellaneous Information (*Rx Drug Level Order Reminder*) GENTAMICIN TROUGH AT 1... ONCE XX ; Start 01/17/17 at 17:00; Stop 01/17/17 at 19:30 Assessment/Plan Chief Complaint/Hosp Course Assessment: 1. Bacterial endocarditis, severe AR with vegetation noted, 2. Recent klebsiella uti 3. chronic cough PLAN: 1. picc line 2. abx 6 weeks 3. f/u CT surgery and ID 2-3 weeks. dc ok from pulm standpoint. Problems: GABRIEL LAYNE MD, [facility] Jan 16, 2017 10:34
[2017-01-16 13:53] VITALS: BP 145/66; RESP 18
--- NOTE | 2017-01-16 14:35 | PN ---
Date/Time of Note Date/Time of Note DATE: 01/16/17 TIME: 14:35 Assessment/Plan VTE Prophylaxis VTE Prophylaxis Intervention: other Lines/Catheters IV Catheter Type (from Nrs): Central line still needed: No Urinary Cath still in place: No Assessment/Plan Chief Complaint/Hosp Course IMPRESSION: 1. Aortic regurgitation. 2. Aortic valve vegetation consistent with endocarditis. 3. Sepsis which has now resolved. RECOMMENDATIONS: This patient will need aortic valve replacement. She does have a small vegetation. However, my preference is to continue antibiotics for a period of up to 4 to 5 more weeks if possible to finish a course of 6 weeks of antibiotics prior to placement of a new valve. The patient will also need a dental examination to rule out any dental caries and/or dental abscesses. Will also need a CTA or Angio to evaluate the coronary arteries prior to aortic valve replacement. Discussed with the patient. We will discuss with the referring physicians. Problems: Subjective 24 Hr Interval Summary Gastrointestinal: no complaints Genitourinary: no complaints Musculoskeletal: no complaints Skin: no complaints Neurologic: no complaints Exam/Review of Systems Vital Signs Vitals Vital Signs Date Time Temp Pulse Resp B/P Pulse Ox O2 Delivery O2 Flow Rate FiO2 01/16/17 13:53 98.7 74 18 145/66 98 01/15/17 08:19 21 01/14/17 13:15 Room Air Intake and Output 01/15/17 01/15/17 01/16/17 15:00 23:00 07:00 Intake Total 1355.75 ml Balance 1355.75 ml Exam ENMT: nl external ears & nose, nl lips & teeth, nl nasal mucosa & septum Neck: non-tender, supple Respiratory: clear to auscultation, normal air movement Cardiovascular: nl pulses, regular rate and rhythm Results Result Diagram: 01/15/17 0539 01/15/17 0539 Medications Medications Current Medications Ondansetron HCl (Zofran Tab) 4 mg Q6H PRN PO NAUSEA AND/OR VOMITING; Start 01/11 at 23:00 Acetaminophen (Tylenol Tab) 650 mg Q6H PRN PO PAIN LEVEL 1-3 OR FEVER Last administered on 01/15/17t 20:15; Admin Dose 650 MG; Start 01/11/17 at 23:00 Acetaminophen/ Hydrocodone Bitart ([place] (5/325)) 1 tab Q6H PRN PO MODERATE PAIN LEVEL 4-6; Start 01/11/17 at 23:00 Famotidine (Pepcid) 20 mg Q12 PO Last administered on 01/16/17 08:55; Admin Dose 20 MG; Start 01/12/17 at 09:00 Guaifenesin/ Dextromethorphan (Mucinex Dm) 1 tab Q6 PRN PO cough Last administered on 01/12/17 16:12; Admin Dose 1 TAB; Start 01/12/17 at 00:30 Zolpidem Tartrate (Ambien) 5 mg HS PRN PO INSOMNIA Last administered on 22:15; Admin Dose 5 MG; Start 01/12/17 at 01:30 Calcium/Vitamin D (Oyster [place]/ Vit-D (500/200)) 1 tab DAILY PO Last administered on 01/16/17 08:55; Admin Dose 1 TAB; Start 01/13/17 at 09:00 Atorvastatin Calcium (Lipitor) 20 mg DAILY@21 PO Last administered on 01/15/17 20:15; Admin Dose 20 MG; Start 01/12/17 at 21:00 Losartan Potassium (Cozaar) 50 mg DAILY PO Last administered on 01/16/17 08:56 ; Admin Dose 50 MG; Start 01/12/17 at 09:00 Alprazolam (Xanax) 0.5 mg Q8H PRN PO ANXIETY Last administered on 01/14/17 13: 44; Admin Dose 0.5 MG; Start 01/14/17 at 13:15 Gentamicin Sulfate GENTAMICIN PER PHARMACY NOTE XX ; Start 01/15/17 at 11:30 Gentamicin Sulfate/Sodium Chloride (Gentamicin/NS) 105.75 ml @ 103.75 mls/hr Q24H IVPB ; Start 01/16/17 at 18:00 Miscellaneous Information GENTAMICIN TROUGH AT 1... ONCE XX ; Start at 17:00; Stop 01/17/17 at 19:30 Ceftriaxone Sodium (Rocephin) 50 ml @ 100 mls/hr Q24H IVPB ; Start 01/16/17 at 18:00 ROBINSON GREENBERG MD Jan 16, 2017 14:35
[2017-01-16] MEDS ORDERED: SOD CHLORIDE 0.9% IVPB SCH ×2 (15:00→18:00)
[2017-01-16] MEDS ORDERED: DAPTOMYCIN IVPB SCH (15:00)
--- NOTE | 2017-01-16 16:57 | PDOCDIS ---
Discharge Instructions DIAGNOSIS Discharge Diagnosis Acute endocarditis. CONDITION Patient Condition: Stable HOME CARE INSTRUCTIONS: Diet Instructions: Low Fat /Cholesterol FOLLOW UP/APPOINTMENTS Follow-up Plan 1. Spencer Mason MD Specialty Cardiothoracic Surgery Office Address [address] [place] [address] Office 2. Girish Soriano MD Specialty Interventional Cardiology Office Address [address] [place] [address] Office 3. Sammy Bagley MD Specialty Critical Care Medicine/Pulmonology Office Address [address] [place] [address] Office OTHER ORDERS: Other Orders: 1. Resume home medications. Complete the course of IV antibiotics. 2. Activities as tolerated. 3. Low-cholesterol diet. 4. Follow-up up with a dentist at the earliest for dental workup. 5. Follow-up with cardiology in 2 weeks. 6. Follow-up with cardiac surgery in 4 weeks. 7. Follow-up with pulmonology. LEÓN ARMENTA NP Jan 16, 2017 16:57
--- NOTE | 2017-01-16 17:13 | PN ---
DATE: 01/16/2017 SUBJECTIVE DATA: No acute changes. The patient is alert, anxious to go home. She is in no distress. No fevers. No labs this morning. Antimicrobials, gentamicin, Rocephin. PHYSICAL EXAMINATION: GENERAL: Well-developed, obese, elderly woman, who is alert, in no distress. HEENT: Head atraumatic, normocephalic. Sclerae anicteric. Buccal mucosa pink. NECK: Supple. CHEST: Rise symmetrical. Breath sounds clear. HEART: S1, S2. ABDOMEN: Soft, bowel sounds present. EXTREMITIES: No cyanosis. ASSESSMENT: 1. Acute bacterial endocarditis. 2. Aortic valve vegetation. 3. Alpha hemolytic strep bacteremia secondary to above. 4. History of gastric bypass. 5. History of squamous cell carcinoma of the skin, surgically removed. PLAN: The patient remains stable. She had a PICC line placed. Pending discharge home on high-dose IV Rocephin for 4 weeks an IV gentamicin for 2 weeks. Patient to follow with Dr. Martha sam Office phone number provided. The patient to follow with primary care physician for monitoring kidney function. Discussed with patient at length. Dictated By: Tushar Hughes NP /charisma/mary ann /Document#: [id number] KRISTI
[2017-01-16] MEDS ORDERED: CEFTRIAXONE 2 GM/50 ML (PMX) 50 ML IVPB SCH (18:00)
[2017-01-16] MEDS ORDERED: GENTAMICIN IVPB SCH (18:00)
--- NOTE | 2017-01-16 21:16 | DS ---
DATE OF ADMISSION: 01/11/2017 DATE OF DISCHARGE: 01/16/2017 FINAL DIAGNOSES: 1. Sepsis with underlying gram-positive bacteremia secondary to acute endocarditis. 2. Asthmatic bronchitis. 3. Severe aortic regurgitation. 4. Essential hypertension. 5. Iron-deficiency anemia. 6. Dyslipidemia. 7. Obesity. CONSULTANTS: 1. Sammy Bagley MD, Pulmonary. 2. Harley Ayoub MD, Infectious Diseases. 3. Girish Soriano MD, Cardiology. 4. Spencer Mason MD, Cardiac Surgery. HOSPITAL COURSE: This is a 71-year-old white female, who was referred by her primary MD for recent positive blood cultures as outpatient. The patient continued to have low-grade fever of unknown etiology for the past 3 months or so. The patient also had a chronic cough. The patient also reported a feeling of generalized fatigue for the past 3 months. The patient denied any recent travels or sick contacts. The patient denied any symptoms of acid reflux. In the emergency room, the patient was noticed to have febrile illness. Provided the patient's history of present illness, a clinical decision was made to admit the patient inpatient setting to have her further evaluated. The patient was admitted to inpatient setting. An infectious disease consult was obtained. Jimenez cultures were obtained. The patient was also checked for noninfectious etiology. The patient's blood cultures showed positive alpha hemolytic streptococcus species. A 2D echocardiogram was ordered to evaluate for any underlying valvular heart disease or vegetation. The patient's transthoracic echocardiogram showed possible mobile echo density concerning for endocarditis with significant aortic valve regurgitation. Consequently, the patient underwent a transesophageal echocardiogram that showed aortic valve vegetation consistent with endocarditis with severe aortic regurgitation. Consequently, a cardiac surgery consult was obtained. Cardiac surgeon evaluated the patient and recommended to continue IV antibiotics for 4-6 weeks to complete the course prior to placement of a new valve. The cardiac surgeon also recommended dental examination to rule out any dental caries and/or dental abscesses. Therefore, a PICC line was placed. The patient will be discharged home on IV antibiotics as per Infectious Disease recommendations. The patient was noticed to have asthmatic bronchitis. Hence, Pulmonology was following the patient. The patient was maintained on inhaled bronchodilators. The patient has underlying essential hypertension. She was maintained on antihypertensives. The patient was noticed to have iron- deficiency anemia. The patient was provided with IV iron supplements. The patient has underlying dyslipidemia. The patient was maintained on statins for the same. The patient underwent a CT scan of the abdomen and pelvis to rule out any infectious etiology. The patient's CT scan revealed mild pneumobilia. Gastroenterology was consulted on this; however, Gastroenterology never saw this patient. The mild pneumobilia could be a nonspecific finding. The patient will be discharged home on IV antibiotics. The patient had a stable hospital course. DISCHARGE DISPOSITION/PLAN: The patient will be discharged home today. She was instructed to resume her home medications and to complete the course of IV antibiotics. She was instructed to resume activities as tolerated. The patient was instructed to follow a low-cholesterol diet. She was instructed to follow up with a dentist at the earliest for dental workup. She was instructed to follow up with Cardiology in 2 weeks. She was instructed to follow up with Cardiac Surgery in 4 weeks. Patient was instructed to follow up with Pulmonology as indicated if she continues to have chronic cough and frequent bronchospasms. The patient verbalized understanding of her discharge instructions. CONDITION AT DISCHARGE: Stable. DISCHARGE MEDICATIONS: 1. Irbesartan 150 mg p.o. daily. 2. Pravastatin 20 mg at bedtime. 3. Vitamin E 400 units p.o. daily. 4. Multivitamin 1 tablet p.o. daily. 5. Colace 100 mg p.o. b.i.d. p.r.n. constipation. 6. Ceftriaxone 2 g IV q.2 hours for 4 weeks (last day 02/12/2017). 7. Gentamicin 3 mg/kg IV daily for 2 weeks (last day 01/29/2017). PERTINENT LAB, DIAGNOSTIC DATA AND PROCEDURES: 1. Transesophageal echocardiogram. Aortic valve vegetation consistent with endocarditis, severe aortic regurgitation. 2. 2D echocardiogram. Normal left ventricular systolic function, ejection fraction of 65 percent, stage I diastolic dysfunction, moderate aortic stenosis, moderate to severe aortic valve regurgitation, possible mobile echo density concerning for endocarditis based on significant valvular regurgitation and fevers x3 months by history, estimated peak PA systolic pressure of [address] scan. Negative for any evidence of any acute abnormality. 4. Chest CT. Bilateral bronchial wall thickening suggestive of bronchitis. Coronary arterial and aortic atherosclerotic calcifications are present. No mass, lymphadenopathy or focal acute infiltrate is identified. 5. Liver ultrasound. The liver demonstrates mildly concentric echogenicity and mildly concentric echotexture, which is nonspecific and can be seen with mild fatty infiltration as well as early chronic liver disease. 6. CT scan of the abdomen and pelvis. Status post antecolic jose-en-Y gastric bypass with a small hiatus hernia, sigmoid colon diverticulosis without diverticulitis, status post cholecystectomy. Pneumobilia is likely from prior sphincterotomy. 7. Right upper extremity PICC line insertion on 01/15/2017. 8. Blood culture from 01/11/2017 positive for alpha hemolytic streptococcus species in both bottles. 9. Latest CBC: WBC 6.2, hemoglobin 9.3, hematocrit 28.5, platelet count 190,000. 10. Iron panel: Iron 25, TIBC 339, iron saturation 7. 11. Hemoglobin A1c 5.6. 12. Fasting lipid panel: Triglycerides 154, total cholesterol 143, LDL 93, HDL 19. At this time, I would like to thank all of the consultants for seeing the patient, doing the necessary procedures, and providing clinical recommendations. Approximately 45 minutes were spent on coordinating the discharge on this patient. Dictated By: Neo Kirby NP /charisma/siva /Document#: [id number] KRISTI
== END 2017-01-16 18:35 | disposition home health service (06) | DRG 871 ==
LOC: E/R 16:56 → MS2 22:32
PROVIDERS: ADMIT Family Medicine; ATTEND Family Medicine
PROC: B24BZZ4 Ultrasonography of Heart with Aorta, Transesophageal (ICD-10-PCS; principal; 2017-01-14)
PROC: 02HV33Z Insertion of Infusion Device into Superior Vena Cava, Percutaneous Approach (ICD-10-PCS; 2017-01-15)
DX: A40.8 Other streptococcal sepsis (principal); I33.9 Acute and subacute endocarditis, unspecified; I50.31 Acute diastolic (congestive) heart failure; K85.10 Biliary acute pancreatitis without necrosis or infection; I11.0 Hypertensive heart disease with heart failure; I35.8 Other nonrheumatic aortic valve disorders; I35.1 Nonrheumatic aortic (valve) insufficiency; D50.9 Iron deficiency anemia, unspecified; E78.5 Hyperlipidemia, unspecified; E66.9 Obesity, unspecified; Z68.32 Body mass index [BMI] 32.0-32.9, adult; J45.909 Unspecified asthma, uncomplicated; Z98.84 Bariatric surgery status; K83.8 Other specified diseases of biliary tract
CPT/HCPCS: 36415; 36569; 70450; 71010; 71250; 74176; 76705; 76937; 80048; 80053; 80061; 80076; 80202; 81001; 82150; 82270; 83036; 83540; 83605; 83615; 83690; 83735; 84100; 84443; 84484; 85025; 85610; 85651; 85730; 86038; 86140; 86200; 86308; 86430; 86592; 86698; 86703; 87040; 87086; 87385; 93005; 93306; 93312; 94640; 94664; 96365; 96366; 96368; J1940; J0692; J0696; J1580; J2250; J2916; J3370; J7030; J7040; J7050

== ENCOUNTER 2017-03-22 10:10 | Inpatient (IN) | payer MEDICARE, BC ==
[2017-03-19 10:44] VITALS: BP 136/60; PULSE 63; RESP 18; BMI 32.6
[2017-03-19 11:16] LABS: BASOPHILS % 0.5 % (0.0-2.0); EOSINOPHILS # 0.1 10^3/ul (0.0-0.5); EOSINOPHILS % 0.9 % (0.0-7.0); HEMATOCRIT 37.5 % (37.0-47.0); HEMOGLOBIN 12.6 g/dl (12.0-16.0); LYMPHOCYTES # 1.9 10^3/ul (0.8-2.9); LYMPHOCYTES % 33.5 % (15.0-51.0); MEAN CORPUSCULAR HEMOGLOBIN 29.3 pg (29.0-33.0); MEAN CORPUSCULAR HGB CONC 33.6 g/dl (32.0-37.0); MEAN CORPUSCULAR VOLUME 87.2 fl (82.0-101.0); MEAN PLATELET VOLUME 10.4 fl (7.4-10.4); MONOCYTE # 0.5 10^3/ul (0.3-0.9); MONOCYTES % 9.2 % (0.0-11.0); NEUTROPHIL # 3.2 10^3/ul (1.6-7.5); NEUTROPHILS % 55.7 % (39.0-77.0); PLATELET COUNT 222 10^3/UL (140-415); RED CELL DISTRIBUTION WIDTH 14.6 % (11.5-14.5); WHITE BLOOD COUNT 5.7 10^3/ul (4.8-10.8)
[2017-03-19 11:35] LABS: UR BACTERIA FEW /HPF (NONE SEEN); UR RBC 1 /HPF (0-5); UR SQUAMOUS EPITHELIAL CELL FEW /HPF (FEW)
[2017-03-19 11:40] LABS: ADD UMIC YES; INR 0.87; PROTIME 11.8 Sec (12.2-14.2); PT RATIO 0.9; UR ASCORBIC ACID NEGATIVE (NEGATIVE); UR BILIRUBIN (Dip) NEGATIVE (NEGATIVE); UR BLOOD (Dip) NEGATIVE (NEGATIVE); UR CLARITY CLEAR (CLEAR); UR COLOR YELLOW (YELLOW); UR GLUCOSE (Dip) NEGATIVE (NEGATIVE); UR KETONES (Dip) NEGATIVE (NEGATIVE); UR LEUKOCYTE ESTERASE (Dip) 2+ Leu/ul (NEGATIVE); UR NITRITE (Dip) NEGATIVE (NEGATIVE); UR SPECIFIC GRAVITY (Dip) 1.014 (1.003-1.030); UR TOTAL PROTEIN (Dip) NEGATIVE (NEGATIVE); UR UROBILINOGEN (Dip) NEGATIVE (NEGATIVE)
[2017-03-19 11:41] LABS: PARTIAL THROMBOPLASTIN TIME 28.9 Sec (25.0-35.0)
[2017-03-19 11:43] LABS: ALBUMIN 4.6 g/dl (3.3-4.9); ALBUMIN/GLOBULIN RATIO 1.35; BILIRUBIN,INDIRECT 0.5 mg/dl (0-1.1); BILIRUBIN,TOTAL 0.5 mg/dl (0.2-1.3); CALCIUM 9.9 mg/dl (8.4-10.2); CREATININE 0.81 mg/dl (0.44-1.00); POTASSIUM 4.4 mmol/L (3.5-5.1)
--- NOTE | 2017-03-19 11:43 | RADRPT ---
PROCEDURE: CHEST X-RAY CLINICAL INDICATION: Aortic insufficiency TECHNIQUE: One-view PA COMPARISON: None FINDINGS: Heart size and pulmonary vascularity appears unremarkable. No acute infiltrates, edema, pneumothorax noted. IMPRESSION: No acute process noted radiographically RPTAT: AAOO Physician Kerry Date Time Electronically viewed and signed by Yoni Grove Physician on 03/19/2017 11:42 MB/
--- NOTE | 2017-03-20 15:05 | RADRPT ---
Vent Rate: 66 bpm RR Interval: 0 msec PA Interval: 158 msec QRS Duration: 100 msec QT Interval: 402 msec QTC Interval: 421 msec P-R-T [place]: 66 - 82 - 58 degrees Sinus rhythm with premature ventricular complexes Poor R wave progression Right axis deviation abnormal EKG No previous tracing available for comparison Electronically Signed By: Clovis Cherry [id number]
[2017-03-22] VITALS (19 sets, daily range): BP systolic 98–162; BP diastolic 44–62; PULSE 65–109; RESP 0–17; TEMP 97.4–97.5; Ht 172.7 cm; Wt 94.9 kg
[~2017-03-22] VITALS: Ht 172.7 cm; Wt 94.9 kg
[~2017-03-22 10:10] MED LIST changes: +BIOT1CAP3 PO; +CALC1TAB4 PO; +DOCU100T9 PO; +DOPamine-D5W 1.6 MG/ML 250 ML ONE; +IRBE150T21 PO; +MULT-761 PO; +NITROGLYCERIN 50 MG/D5W 250 ML BTL ONE; +PRAV20TA2 PO; -VANCOMYCIN 2 GM in SOD CHLORIDE 0.9% 500 ML IVPB SCH; +VITA400C15 PO
[2017-03-22] MEDS ORDERED: DOCU-144 PO ×2 (10:36)
[2017-03-22] MEDS ORDERED: DIFL60OI TOP (10:37)
[2017-03-22] MEDS ORDERED: CHOL20002 PO (10:37)
[2017-03-22] MEDS ORDERED: NAFT45CR TP (10:38)
[2017-03-22] MEDS ORDERED: PHENYLephrine 20MG IN 250 ML 250 ML IV SCH (12:00)
[2017-03-22] MEDS ORDERED: EPINEPHrine 4 MG in DEXTROSE 5% 246 ML IV SCH (12:00)
[2017-03-22] MEDS ORDERED: INSULIN HUMAN REGULAR 100 UNIT in SOD CHLORIDE 0.9% 99 ML IV SCH ×2 (12:00→23:00)
[2017-03-22] MEDS ORDERED: GELATIN SIZE 100 SPONGE ONE (12:16)
[2017-03-22] MEDS ORDERED: VANCOMYCIN 1 GM INJ ONE (12:16)
[2017-03-22] MEDS ORDERED: HEPARIN 1000 UNITS/ML 10 ML INJ ONE ×3 (12:16→15:56)
[2017-03-22] MEDS ORDERED: THROMBIN 5000 UNIT VIAL ONE (12:16)
[2017-03-22] MEDS ORDERED: MIDAZOLAM 5 ML ONE ×2 (14:20→15:43)
[2017-03-22] MEDS ORDERED: PHENYLephrine (100 MCG/ML) 5ML SYG ONE ×2 (14:21→16:08)
[2017-03-22] MEDS ORDERED: MANNITOL 20% 250 ML IV ONE (14:52)
[2017-03-22] MEDS ORDERED: MAGNESIUM SULFATE (MG) 50% 10 ML INJ ONE (14:52)
[2017-03-22] MEDS ORDERED: ALBUMIN HUMAN 25% 200 ML ONE (14:52)
[2017-03-22] MEDS ORDERED: LIDOCAINE 100 MG SYRINGE ONE (14:52)
[2017-03-22] MEDS ORDERED: NA BICARBONATE 8.4% 50 ML SYG ONE (14:52)
[2017-03-22] MEDS ORDERED: CA CHLORIDE 10% 10 ML SYRINGE ONE (14:52)
[2017-03-22] MEDS ORDERED: AMINOCAPROIC ACID 5 GM INJ ONE ×4 (14:52→17:28)
[2017-03-22] MEDS ORDERED: PHENYLephrine 10 MG INJ ONE (14:52)
[2017-03-22] MEDS ORDERED: POTASSIUM CHLORIDE 40 MEQ INJ ONE (14:53)
[2017-03-22] MEDS ORDERED: CEFAZOLIN 1 GM INJ ONE ×2 (15:33→17:27)
[2017-03-22] MEDS ORDERED: PROTAMINE 250 MG INJ ONE (17:28)
[2017-03-22] MEDS ORDERED: hydrALAzine 20 MG INJ ONE (18:00)
[2017-03-22] MEDS ORDERED: FUROSEMIDE 20 MG INJ ONE (18:45)
[2017-03-22] MEDS ORDERED: ETOMIDATE 20 MG INJ ONE (18:46)
[2017-03-22] MEDS ORDERED: ROCURONIUM 50 MG INJ ONE (18:46)
[2017-03-22] MEDS ORDERED: LIDOCAINE 2% (SDV) 5 ML INJ ONE ×4 (18:46)
--- NOTE | 2017-03-22 18:52 | OPR ---
Date/Time of Note Date/Time of Note DATE: 03/22/17 TIME: 18:49 Operative Report Procedure Date: Mar 22, 2017 Preoperative Diagnosis AI Postoperative Diagnosis AI Operation/Procedure Performed AVR 21 mm bioprosthetic valve Surgeon see signature line Center Director Lead Teacher Elvis Ibrahim Anesthesia Type: general Estimated Blood Loss: none Transfusion none Specimen valve Grafts/Implants aortic sari Complications none Pt Condition Post Procedure: critical Procedure Description Dictated ROBINSON GREENBERG MD Mar 22, 2017 18:52
[2017-03-22 19:55] LABS: HAAIG REFLEX REFLEX FILED
[2017-03-22 19:58] LABS: BASOPHILS % 0.2 % (0.0-2.0); EOSINOPHILS # 0.1 10^3/ul (0.0-0.5); EOSINOPHILS % 0.7 % (0.0-7.0); HEMATOCRIT 29.3 % (37.0-47.0); LYMPHOCYTES # 3.7 10^3/ul (0.8-2.9); LYMPHOCYTES % 23.1 % (15.0-51.0); MEAN CORPUSCULAR HEMOGLOBIN 29.9 pg (29.0-33.0); MEAN CORPUSCULAR HGB CONC 34.1 g/dl (32.0-37.0); MEAN CORPUSCULAR VOLUME 87.5 fl (82.0-101.0); MEAN PLATELET VOLUME 9.9 fl (7.4-10.4); MONOCYTE # 0.6 10^3/ul (0.3-0.9); NEUTROPHIL # 11.5 10^3/ul (1.6-7.5); NEUTROPHILS % 71.2 % (39.0-77.0); PLATELET COUNT 127 10^3/UL (140-415); RED BLOOD COUNT 3.35 10^6/ul (4.20-5.40); RED CELL DISTRIBUTION WIDTH 14.7 % (11.5-14.5); WHITE BLOOD COUNT 16.2 10^3/ul (4.8-10.8)
[2017-03-22 20:19] LABS: CALCIUM 9.3 mg/dl (8.4-10.2); CREATININE 0.82 mg/dl (0.44-1.00); MAGNESIUM 2.6 mg/dl (1.7-2.5); POTASSIUM 3.9 mmol/L (3.5-5.1)
[2017-03-22 20:23] LABS: INR 1.47; PARTIAL THROMBOPLASTIN TIME 31.9 Sec (25.0-35.0); PROTIME 17.9 Sec (12.2-14.2); PT RATIO 1.4
--- NOTE | 2017-03-22 20:24 | RADRPT ---
PROCEDURE: XR Chest. CLINICAL INDICATION: Shortness of breath. Postop. TECHNIQUE: Single frontal view. COMPARISON: 03/19/2017. FINDINGS: There has been interval surgery. The endotracheal tube is in satisfactory position with the tip 4 cm above the steve. The mediastinal drain and left chest tube are in satisfactory position. There is a right internal jugular vein [place] catheter with the tip in the right main pulmonary artery. Th ere is mild left basilar atelectasis. The lungs are otherwise clear. The heart size is normal. There are sternal wires and mediastinal clips. There is no pleural effusion. There is no pneumothorax. IMPRESSION: 1. Tubes and lines in satisfactory position. 2. Satisfactory postoperative appearance of the chest. RPTAT: QQ .Giovany Rivers MD, Date Time Electronically viewed and signed by .Giovany Rivers MD, on 03/22/2017 20:23 .R/
[2017-03-22] MEDS: POTASSIUM CHLORIDE 40 MEQ, CALCIUM CHLORIDE 10% 1 GM in DEXTROSE 5%-0.225% NACL 1,000 ML IV SCH (21:06)
[2017-03-22 21:17] LABS: HEPATITIS B CORE ANTIBODY NEGATIVE (NEGATIVE)
[2017-03-22] MEDS ORDERED: DOPamine-D5W 1.6 MG/ML 250 ML IV SCH (21:30)
[2017-03-22] MEDS ORDERED: NITROGLYCERIN 50 MG/D5W (PMX) 250 ML IV SCH (21:30)
[2017-03-22] MEDS ORDERED: HYDROmorphONE 0.5 MG/0.5 ML SYG IV PRN (21:30)
[2017-03-22] MEDS ORDERED: MAGNESIUM SULFATE 1 GM/D5W 100 ML IVPB PRN (21:30)
[2017-03-22] MEDS ORDERED: ONDANSETRON 4 MG INJ IV PRN (21:30)
[2017-03-22] MEDS ORDERED: ALBUMIN HUMAN 5% 250 ML IV PRN (21:30)
[2017-03-22 21:39] LABS: MODE VENT - AC; MetHgb Mixed Venous 0.2 %; Mixed Venous COHb 0.3 %; Mixed Venous Fraction OxyHgb 77.7 %; Mixed Venous Oxygen Sat 78.1 mmHG (65.0-75.0); Mixed Venous Total Hemglobin 11.3 g/dl; Sample Type BLMV
[2017-03-22 21:44] LABS: AADO2 Arterial 217.2 mmHg (7.0-24.0); Arterial Base Excess -2.3 mmol/L (-3.0-3); Arterial COHb 0.3 % (0.0-3.0); Arterial Fraction of Oxyhgb 98.2 % (93.0-99.0); Arterial MetHb 0.2 % (0.0-1.5); Arterial Total Hemglobin 11.8 g/dl (12.0-18.0); MODE VENT - AC
[2017-03-22] MEDS: HYDROmorphONE 0.5 MG/0.5 ML SYG IV PRN (22:20)
[2017-03-22] MEDS: POTASSIUM CHLORIDE 50 ML IVPB PRN ×2 (22:20→23:51)
[2017-03-22] MEDS ORDERED: DEXTROSE 50% 50 ML SYRINGE IV PRN ×2 (23:00)
[2017-03-22] MEDS: ACCU-CHEK XX SCH ×2 (23:53→23:54)
[2017-03-23] VITALS (50 sets, daily range): BP systolic 91–147; BP diastolic 41–114; PULSE 69–100; RESP 5–24; TEMP 99.3
[2017-03-23 00:49] LABS: AADO2 Arterial 102.1 mmHg (7.0-24.0); Allen Test ACCEPTAB; Arterial Base Excess 0.5 mmol/L (-3.0-3); Arterial COHb 0.3 % (0.0-3.0); Arterial Fraction of Oxyhgb 97.6 % (93.0-99.0); Arterial HCO3 25.8 mmol/L (22.0-26.0); Arterial MetHb 0.2 % (0.0-1.5); Arterial Total Hemglobin 11.3 g/dl (12.0-18.0); Blood Gas PS 5; MODE VENT - CPAP
--- NOTE | 2017-03-23 01:01 | OPR ---
DATE OF OPERATION: PREOPERATIVE DIAGNOSIS: Aortic insufficiency. POSTOPERATIVE DIAGNOSIS: Aortic insufficiency. PROCEDURE: Aortic valve replacement with a 23 mm bioprosthetic valve. SURGEON: Robinson Mason MD CUT AND COVER LINE WORKER: Dr. Wendy Whitmore CONSENT: Risks, benefits, complications, alternative therapies explained to the patient and the [facility] miriam, consent obtained. OPERATIVE TECHNIQUE: The patient was placed in supine position, prepped and draped in usual sterile fashion. Time-out was called, antibiotics were given and I started. I made a sternotomy incision from the sternal notch down to the xiphoid process. The sternum was op ened in the mid aspect of the sternum. The pericardium was opened, patient fully heparinized. Navid ulation sutures of 3-0 Prolene with pledgets were applied to the distal ascending aorta, mid ascendi ng aorta, body of the right atrium, and right atrial appendage. After adequate documentation of ACT , aorta was cannulated followed by 2-stage venous cannula, anterior and retrograde cardioplegia navid hu and a left ventricular vent through the right superior pulmonary vent. The patient was placed o n cardiopulmonary bypass. Crossclamp applied. The heart was arrested using antegrade and retrograd e cardioplegia given every 15 to 20 minutes through the aortic root and also directly into the ostia . The aorta was opened about a centimeter superior to the coronary ostia. The aortic valve appeare d to be completely destroyed. It was removed, sized at 21 mm, and 14 pledgeted sutures were placed with the pledgets on the ventricular border of the annulus. The bioprosthetic valve was seated, sut ures tied. Aorta was closed using 2 layers of 3-0 Prolene in a running fashion and base was sutured technique over itself. The crossclamp removed, the heart was deaired. The patient came off cardio pulmonary bypass on minimal drips. Cannulas removed, sutures tied, protamine given. Two ventricula r pacing wires, 2 mediastinal chest tubes were placed, brought out through a lower stab wound, secur ed to skin using silk sutures. No evidence of any bleeding was noted. The chest was closed using c able system x4. The linea alba and the deep tissues were irrigated and closed in 2 layers of #1 Ricardo ryl suture for the deep, 2-0 Vicryl sutures for the subcutaneous, 4-0 Monocryl suture for running cruz bcuticular skin closure. The patient tolerated the procedure well. Dictated By: ROBINSON MASON MD FM/NICKOLAS Conf#: [id number] DID#: [id number] CC: WENDY WHITMORE MD;*EndCC*
[2017-03-23] MEDS: HYDROmorphONE 0.5 MG/0.5 ML SYG IV PRN ×9 (01:28→21:26)
[2017-03-23] MEDS: ACCU-CHEK XX SCH ×7 (01:31→07:03)
[2017-03-23 05:13] LABS: BASOPHILS % 0.3 % (0.0-2.0); HEMATOCRIT 31.2 % (37.0-47.0); HEMOGLOBIN 10.2 g/dl (12.0-16.0); LYMPHOCYTES # 0.7 10^3/ul (0.8-2.9); LYMPHOCYTES % 5.4 % (15.0-51.0); MEAN CORPUSCULAR HEMOGLOBIN 29.1 pg (29.0-33.0); MEAN CORPUSCULAR HGB CONC 32.7 g/dl (32.0-37.0); MEAN CORPUSCULAR VOLUME 89.1 fl (82.0-101.0); MEAN PLATELET VOLUME 10.9 fl (7.4-10.4); MONOCYTES % 7.8 % (0.0-11.0); NEUTROPHIL # 10.5 10^3/ul (1.6-7.5); PLATELET COUNT 154 10^3/UL (140-415); RED CELL DISTRIBUTION WIDTH 15.1 % (11.5-14.5); WHITE BLOOD COUNT 12.2 10^3/ul (4.8-10.8)
[2017-03-23 05:27] LABS: INR 1.09; PROTIME 14.1 Sec (12.2-14.2); PT RATIO 1.1
[2017-03-23 05:28] LABS: CALCIUM 9.3 mg/dl (8.4-10.2); CREATININE 0.84 mg/dl (0.44-1.00); PARTIAL THROMBOPLASTIN TIME 35.2 Sec (25.0-35.0); POTASSIUM 4.8 mmol/L (3.5-5.1)
[2017-03-23] MEDS ORDERED: FAMOTIDINE 20 MG INJ IV SCH (08:00)
--- NOTE | 2017-03-23 08:31 | RADRPT ---
PROCEDURE: Chest radiograph CLINICAL INDICATION: Chest tube removal. COMPARISON: Radiograph 03/22/2017. TECHNIQUE: Single frontal chest radiograph. FINDINGS: Interval extubation. Interval removal of left-sided chest tube. No pneumothorax. Right internal jugular [place] Larry catheter terminates in the pulmonary artery. Intra-aortic balloon pump terminates in the descending thoracic aorta in expected position. The left diaphragm and costophrenic sulcus are obscured, likely a combination of effusion and atelec tasis. The left upper lobe and right lung are clear. Cardiomegaly. Median sternotomy. IMPRESSION: 1. Interval removal of left chest tube without evidence of pneumothorax. 2. Cardiomegaly with left basilar opacity which may represent a combination of effusion and/or atel ectasis. 3. All support lines and tubes in appropriate position. RPTAT: PP Physician Jamarcus Date Time Electronically viewed and signed by Physician Jamarcus on 03/23/2017 08:30 /
--- NOTE | 2017-03-23 15:57 | CONS ---
Date/Time of Note Date/Time of Note DATE: 03/23/17 TIME: 15:52 Assessment/Plan Assessment/Plan Chief Complaint/Hosp Course S/p Bio AVR: 21mm per OP report. No immediate complications. Doing well. H/o aortic valve endocarditis with severe AR: s/p AVR as above HTN HL -continue care in ICU overnight, likely tele tomorrow -pain control -obtain baseline echo in 1-2 days Problems: Consultation Date/Type/Reason Admit Date/Time Mar 22, 2017 at 10:10 Date of Consultation: Mar 23, 2017 Type of Consultation: Cardiology Reason for Consultation Post AVR Referring Provider: ROBINSON GREENBERG MD Hx of Present Illness 71 yo F with a h/o aortic valve endocarditis with severe aortic regurgitation, HTN, HL, who is now s/p bio AVR 03/22/17 without complications. Pt was extubated post op and has actually ambulated with PT twice. She has wound pain as expected but is otherwise asymptomatic. No SOB. per HPI Past Medical History per HPI Social History Smoking Status: Never smoker Exam/Review of Systems Vital Signs Vitals Vital Signs Date Time Temp Pulse Resp B/P Pulse Ox O2 Delivery O2 Flow Rate FiO2 03/23/17 15:00 71 9 135/67 95 Room Air 03/23/17 11:00 100.2 03/23/17 08:45 2.0 03/22/17 23:45 40 Intake and Output 03/22/17 03/22/17 03/23/17 15:00 23:00 07:00 Intake Total 1910.28 ml 533.66 ml Output Total 2046 ml 1090 ml Balance -135.72 ml -556.34 ml Exam Constitutional: alert, oriented Psych: nl mood/affect, no complaints Head: atraumatic, normocephalic Neck: No jvd Respiratory: clear to auscultation, No crackles/rales Cardiovascular: regular rate and rhythm, No edema, No systolic murmur Gastrointestinal: non-tender, soft Extremities: normal pulses Neurological: nl mental status, nl speech Results Result Diagram: 03/23/175 03/23/175 Results 24 hrs Laboratory Tests Test 03/22/17 18:53 03/22/17 19:45 03/22/17 19:56 03/22/17 21:00 Blood Gas Specimen Source Blood arterial BLMV Arterial Blood Date Drawn 03/22/2017 9:30:51 PM 03/22/2017 9:20:00 PM Arterial Blood pH (Temp corrected) 7.362 Arterial Blood pCO2 (Temp correct) 41.4 Arterial Blood pO2 (Temp corrected) 165.1 H Arterial Blood HCO3 23.0 Arterial Blood Base Excess -2.3 Arterial Blood Oxygen Saturation 98.7 H Reza Test N/A N/A Arterial Blood Gas Puncture Site A-Line A-Line Arterial Blood Carboxyhemoglobin 0.3 Arterial Blood Methemoglobin 0.2 Blood Gas A-a O2 Differential 217.2 H Oxyhemoglobin Percent 98.2 Total Hemoglobin 11.8 L Blood Gas Temperature 37.0 37.0 Blood Gas Respiration Rate 14.0 14.0 Blood Gas Actual Respiration Rate 15 15 Blood Gas Modality VENT - AC VENT - AC FiO2 60.0 60.0 Blood Gas Tidal Volume 500.0 500.0 Blood Gas Low PEEP Setting 5.0 5.0 Blood Gas Inspiratory Pressure 19.0 19.0 Blood Gas Notified Whom MINDI OBREGON RCP Blood Gas Notified Time 03/22/2017 9:44:01 PM 03/22/2017 9:39:25 PM White Blood Count 16.2 #H Red Blood Count 3.35 #L Hemoglobin 10.0 #L Hematocrit 29.3 #L Mean Corpuscular Volume 87.5 Mean Corpuscular Hemoglobin 29.9 Mean Corpuscular Hemoglobin Concent 34.1 Red Cell Distribution Width 14.7 H Platelet Count 127 #L Mean Platelet Volume 9.9 Neutrophils % 71.2 Lymphocytes % 23.1 Monocytes % 4.0 Eosinophils % 0.7 Basophils % 0.2 Nucleated Red Blood Cells % 0.0 Neutrophils # 11.5 H Lymphocytes # 3.7 H Monocytes # 0.6 Eosinophils # 0.1 Basophils # 0.0 Nucleated Red Blood Cells # 0.0 Prothrombin Time 17.9 #H Prothrombin Time Ratio 1.4 INR International Normalized Ratio 1.47 Activated Partial Thromboplast Time 31.9 Sodium Level 137 Potassium Level 3.9 Chloride Level 103 Carbon Dioxide Level 24 Anion Gap 14 Blood Urea Nitrogen 12 Creatinine 0.82 Glucose Level 110 Calcium Level 9.3 Magnesium Level 2.6 H Hepatitis B Surface Antigen NEGATIVE Hepatitis B Surface Antibody NEGATIVE Hepatitis B Core Total Antibody NEGATIVE Hepatitis C Antibody NEGATIVE Bedside Glucose 118 Mixed Venous Blood PO2 45.2 H Mixed Venous Blood O2 Saturation 78.1 H Mixed Venous Blood Total Hemoglobin 11.3 Mixed Venous Blood Oxyhemoglobin 77.7 Mixed Venous Bld Carboxyhemoglobin 0.3 Mixed Venous Blood Methemoglobin 0.2 Test 03/22/17 22:31 03/22/17 23:43 03/23/17 00:37 03/23/17 01:30 Bedside Glucose 189 173 163 Blood Gas Specimen Source Blood arterial Arterial Blood Date Drawn 03/23/2017 12:40:04 AM Arterial Blood pH (Temp corrected) 7.383 Arterial Blood pCO2 (Temp correct) 44.3 Arterial Blood pO2 (Temp corrected) 132.2 H Arterial Blood HCO3 25.8 Arterial Blood Base Excess 0.5 Arterial Blood Oxygen Saturation 98.1 H Reza Test ACCEPTAB Arterial Blood Gas Puncture Site A-Line Arterial Blood Carboxyhemoglobin 0.3 Arterial Blood Methemoglobin 0.2 Blood Gas A-a O2 Differential 102.1 H Oxyhemoglobin Percent 97.6 Total Hemoglobin 11.3 L Blood Gas Temperature 37.0 Blood Gas Actual Respiration Rate 14 Blood Gas Modality VENT - CPAP FiO2 40.0 Blood Gas Low PEEP Setting 5.0 Blood Gas Pressure Support 5 Blood Gas Notified Whom KM Blood Gas Notified Time 03/23/2017 12:48:57 AM Test 03/23/17 03:03 03/23/17 04:25 03/23/17 05:03 03/23/17 07:01 Bedside Glucose 153 129 160 White Blood Count 12.2 #H Red Blood Count 3.50 L Hemoglobin 10.2 L Hematocrit 31.2 L Mean Corpuscular Volume 89.1 Mean Corpuscular Hemoglobin 29.1 Mean Corpuscular Hemoglobin Concent 32.7 Red Cell Distribution Width 15.1 H Platelet Count 154 # Mean Platelet Volume 10.9 H Neutrophils % 86.0 H Lymphocytes % 5.4 L Monocytes % 7.8 Eosinophils % 0.0 Basophils % 0.3 Nucleated Red Blood Cells % 0.0 Neutrophils # 10.5 H Lymphocytes # 0.7 L Monocytes # 1.0 H Eosinophils # 0.0 Basophils # 0.0 Nucleated Red Blood Cells # 0.0 Prothrombin Time 14.1 # Prothrombin Time Ratio 1.1 INR International Normalized Ratio 1.09 Activated Partial Thromboplast Time 35.2 H Sodium Level 138 Potassium Level 4.8 Chloride Level 105 Carbon Dioxide Level 24 Anion Gap 14 Blood Urea Nitrogen 13 Creatinine 0.84 Glucose Level 132 Calcium Level 9.3 Magnesium Level 2.0 Test 03/23/17 08:31 03/23/17 10:01 03/23/17 12:10 03/23/17 15:05 Bedside Glucose 133 160 137 117 Medications Medications Current Medications Potassium Chloride/Calcium Chloride/Dextrose/ Sodium Chloride (KCl/Ca Chloride/ D5-1/4ns) 1,030 ml @ 60 mls/hr [id number] IV Last administered on 03/22/17 21: 06; Admin Dose 60 MLS/HR; Start 03/22/17 at 18:53 Hydromorphone HCl (Dilaudid) 0.2 mg Q15M PRN IV PAIN LEVEL 1-5 Last administered on 03/22/17 22:20; Admin Dose 0.2 MG; Start 03/22/17 at 21:30 Hydromorphone HCl (Dilaudid) 0.4 mg Q15M PRN IV PAIN LEVEL 6-10 Last administered on 03/23/17 03:08; Admin Dose 0.4 MG; Start 03/22/17 at 21:30 Hydromorphone HCl (Dilaudid) 0.2 mg Q1H PRN IV PAIN LEVEL 1-5; Start 03/22/17 at 21:30 Hydromorphone HCl (Dilaudid) 0.4 mg Q1H PRN IV PAIN LEVEL 6-10 Last administered on 03/23/17 13:17; Admin Dose 0.4 MG; Start 03/22/17 at 21:30 Ondansetron HCl (Zofran Inj) 4 mg Q6H PRN IV NAUSEA AND/OR VOMITING; Start at 21:30 Famotidine 20 mg 20 mg BID@08,20 IV Last administered on 03/23/17 08:30; Admin Dose 20 MG; Start 03/23/17 at 08:00 Magnesium Sulfate/ Dextrose (Magnesium Sulfate 1 Gm/D5W) 100 ml @ 100 mls/hr PRN PRN IVPB PENDING LAB VALUE; Start 03/22/17 at 21:30 Diagnostic Test (Pha) (Accu-Chek) 1 ea Q1H XX Last administered on 03/23/17 07:03; Admin Dose 1 EA; Start 03/22/17 at 23:00 Dextrose (D50w Syringe) 25 ml Q15M PRN IV Till BS 80 mg/dL or above x2; Start 03/22/17 at 23:00 Dextrose (D50w Syringe) 50 ml Q15M PRN IV Till BS 80 mg/dL or above x2; Start 03/22/17 at 23:00 MARY ANNE FULLER Mar 23, 2017 15:56
[2017-03-23] MEDS ORDERED: Discontinue current oral sulfonylureas (glyburide, glipizide, and/or glimepiride) prior to XX ONE (16:30)
[2017-03-23] MEDS ORDERED: HYPOGLYCEMIA PROTOCOL when Glucose is <70 mg/dL or symptomatic <90 mg/dL. XX ONE (16:30)
[2017-03-23] MEDS ORDERED: GLUCOSE GEL 15 GRAM TUBE BUCCAL PRN (17:00)
[2017-03-23] MEDS ORDERED: GLUCOSE GEL 15 GRAM TUBE PO PRN ×2 (17:00)
[2017-03-23] MEDS ORDERED: DEXTROSE 50% 50 ML SYRINGE IV PRN ×2 (17:00)
[2017-03-23] MEDS ORDERED: GLUCAGON 1 MG INJ IM PRN (17:00)
--- NOTE | 2017-03-23 17:02 | PN ---
Date/Time of Note Date/Time of Note DATE: 03/23/17 TIME: 17:00 Assessment/Plan Lines/Catheters IV Catheter Type (from Nrsg): Central Line Donaldson in Place (from Nrsg): Yes Assessment/Plan Chief Complaint/Hosp Course SP AVR hemodamamically stable will DC SG cath, A line and donaldson cath Problems: Subjective 24 Hr Interval Summary Constitutional: improved Pain Control: mild Exam/Review of Systems Vital Signs Vitals Vital Signs Date Time Temp Pulse Resp B/P Pulse Ox O2 Delivery O2 Flow Rate FiO2 03/23/17 16:59 96 21 03/23/17 16:00 74 03/23/17 15:00 9 135/67 Room Air 03/23/17 12:30 3.0 03/23/17 11:00 100.2 Intake and Output 03/22/17 03/22/17 03/23/17 14:59 22:59 06:59 Intake Total 1874.68 ml 567.76 ml Output Total 1958 ml 1178 ml Balance -83.32 ml -610.24 ml Exam ENMT: mucosa pink and moist, nl external ears & nose, nl lips & teeth, nl nasal mucosa & septum Neck: non-tender, supple Respiratory: clear to auscultation, normal air movement Cardiovascular: nl pulses, regular rate and rhythm Results Result Diagram: 03/23/175 03/23/17424 ROBINSON GREENBERG MD Mar 23, 2017 17:02
[2017-03-23] MEDS: INSULIN ASPART [NOVOLOG] 3 ML PEN SC SCH ×2 (17:35→21:00)
--- NOTE | 2017-03-23 18:45 | HP ---
DATE OF ADMISSION: 03/22/2017 CHIEF COMPLAINT: Status post aortic valve replacement. HISTORY OF PRESENT ILLNESS: This is a 71-year-old female with a past medical history of dyslipidemi a, hypertension, who underwent elective aortic valve replacement. The patient was recently diagnose d with aortic valve endocarditis and severe regurgitation. The patient was treated with IV antibiot ics. She underwent elective aortic valve replacement surgery on 03/22/[address] Mason without any intraoperative or postoperative complications. The patient is currently in the intensive care unit complaining about generalized pain, but denies any hemoptysis, hematemesis, hematochezia. The patient is also complaining of bilateral groin fungal rash. Denies any dysuria. PAST MEDICAL HISTORY: History of hypertension, history of dyslipidemia. PAST SURGICAL HISTORY: Status post aortic valve replacement, history of cholecystectomy, history of Kory-en-Y bypass surgery. FAMILY HISTORY: Noncontributory. SOCIAL HISTORY: Does not drink, smoke or do drugs. MEDICATIONS: The patient's medication reviewed and reconciled. REVIEW OF SYSTEMS: A 14-point review of systems was conducted. Pertinent positives stated in HPI, otherwise negative. PHYSICAL EXAMINATION: VITAL SIGNS: Blood pressure is 121/60, respirations 14, pulse 71, temperature 98.0. HEENT: Head is normocephalic. NECK: Supple. HEART: Regular rate. The patient has positive murmur. LUNGS: Show diminished breath sounds at base. The patient has a chest tube in place. ABDOMEN: Soft, nontender to palpation. No rebound or guarding. EXTREMITIES: Negative for clubbing, cyanosis, edema. DERMATOLOGIC: No rashes. LABORATORY DATA: Shows white count 12.2, hemoglobin 10.2, hematocrit 31.2, platelet count 154. BMP within normal limits. IMAGING STUDIES: Reviewed. ASSESSMENT AND PLAN: This is a 71-year-old female who presents with: 1. Status post aortic valve replacement. The patient is postop day #1. The patient is currently st able. Continue current treatment plan. Follow up with cardiology and CT surgery for further recomm endations. 2. Hypertension. Blood pressure currently controlled. Continue medical management. 3. Dyslipidemia. Continue statin therapy. 4. Chronic pain syndrome. Etiology is postoperative. Continue current pain regimen. 5. Growing rash, likely fungal. Will start the patient on Diflucan. 6. Leukocytosis, likely reactive. Continue to monitor. We will place an infectious disease consult for evaluation. 7. Anemia. Monitor hemoglobin and hematocrit levels. 8. Gastrointestinal and deep venous thrombosis prophylaxis. Continue proton pump inhibitor and sequ ential leg squeezers. Please note, 25 minutes was spent in [id number] time with the patient. The patient is FULL CODE. Dictated By: PIERCE SHINE/NICKOLAS Conf#: [id number] DID#: [id number]
[2017-03-23] MEDS: POTASSIUM CHLORIDE 40 MEQ, CALCIUM CHLORIDE 10% 1 GM in DEXTROSE 5%-0.225% NACL 1,000 ML IV SCH (19:00)
[2017-03-23] MEDS: FAMOTIDINE 20 MG TAB PO SCH (21:11)
[2017-03-23] MEDS: DOCUSATE SODIUM 100 MG CAP PO SCH (21:11)
--- NOTE | 2017-03-23 21:49 | RADRPT ---
Vent Rate: 76 bpm RR Interval: 0 msec ME Interval: 152 msec QRS Duration: 94 msec QT Interval: 366 msec QTC Interval: 411 msec P-R-T [place]: 44 - 27 - -12 degrees Normal sinus rhythm Anterior infarct , age undetermined ST amp; T wave abnormality, consider inferior ischemia Abnormal ECG Electronically Signed By: Sherman Interiano [id number]
--- NOTE | 2017-03-23 21:50 | RADRPT ---
Vent Rate: 71 bpm RR Interval: 0 msec UT Interval: 158 msec QRS Duration: 90 msec QT Interval: 452 msec QTC Interval: 491 msec P-R-T [place]: -13 - 29 - -1 degrees Normal sinus rhythm Nonspecific T wave abnormality Prolonged QT Abnormal ECG Electronically Signed By: Sherman Interiano [id number]
[2017-03-24] VITALS (24 sets, daily range): BP systolic 89–142; BP diastolic 50–104; PULSE 69–98; RESP 6–26
[2017-03-24] MEDS: HYDROmorphONE 0.5 MG/0.5 ML SYG IV PRN ×7 (01:11→22:29)
[2017-03-24] MEDS: ACCU-CHEK XX SCH ×2 (02:00)
[2017-03-24] MEDS: POTASSIUM CHLORIDE 40 MEQ, CALCIUM CHLORIDE 10% 1 GM in DEXTROSE 5%-0.225% NACL 1,000 ML IV SCH ×2 (05:13→22:23)
[2017-03-24 05:54] LABS: BASOPHILS % 0.2 % (0.0-2.0); EOSINOPHILS # 0.1 10^3/ul (0.0-0.5); EOSINOPHILS % 0.4 % (0.0-7.0); HEMATOCRIT 30.7 % (37.0-47.0); HEMOGLOBIN 10.1 g/dl (12.0-16.0); LYMPHOCYTES # 1.3 10^3/ul (0.8-2.9); LYMPHOCYTES % 8.7 % (15.0-51.0); MEAN CORPUSCULAR HEMOGLOBIN 29.5 pg (29.0-33.0); MEAN CORPUSCULAR HGB CONC 32.9 g/dl (32.0-37.0); MEAN CORPUSCULAR VOLUME 89.8 fl (82.0-101.0); MEAN PLATELET VOLUME 11.4 fl (7.4-10.4); MONOCYTE # 1.4 10^3/ul (0.3-0.9); MONOCYTES % 8.9 % (0.0-11.0); NEUTROPHIL # 12.5 10^3/ul (1.6-7.5); NEUTROPHILS % 81.1 % (39.0-77.0); PLATELET COUNT 141 10^3/UL (140-415); RED BLOOD COUNT 3.42 10^6/ul (4.20-5.40); RED CELL DISTRIBUTION WIDTH 15.2 % (11.5-14.5); WHITE BLOOD COUNT 15.4 10^3/ul (4.8-10.8)
[2017-03-24 06:28] LABS: CALCIUM 9.4 mg/dl (8.4-10.2); CREATININE 0.8 mg/dl (0.44-1.00); MAGNESIUM 1.7 mg/dl (1.7-2.5); POTASSIUM 5.1 mmol/L (3.5-5.1)
[2017-03-24] MEDS: INSULIN ASPART [NOVOLOG] 3 ML PEN SC SCH ×4 (07:35→20:13)
--- NOTE | 2017-03-24 08:08 | RADRPT ---
PROCEDURE: XR Chest. CLINICAL INDICATION: Shortness of breath. TECHNIQUE: Single frontal view. COMPARISON: 03/23/2017. FINDINGS: Mild atelectasis is present at the lung bases, unchanged. The lungs are otherwise clear. The heart is enlarged. There are sternal wires and mediastinal drains. The right internal jugular ve in sheath catheter and [place]-Larry catheter have been removed. There is no pleural effusion. There is no pneumothorax. IMPRESSION: 1. Central line removed. 2. Mild atelectasis at the lung bases. 3. Cardiomegaly and postoperative changes. 4. Otherwise unremarkable chest radiograph. RPTAT: QQ .Giovany Rivers MD, MD Date Time Electronically viewed and signed by .Giovany Rivers MD, MD on 03/24/2017 08:07 .R/
[2017-03-24] MEDS: FAMOTIDINE 20 MG TAB PO SCH ×2 (08:50→20:13)
[2017-03-24] MEDS: DOCUSATE SODIUM 100 MG CAP PO SCH ×2 (08:50→20:13)
[2017-03-24] MEDS: NYSTATIN 15 GM CR TOP SCH ×2 (09:01→20:13)
--- NOTE | 2017-03-24 09:20 | PN ---
DATE: 03/24/2017 SUBJECTIVE: The patient is stable. No events overnight. No fevers, chills, nausea, vomiting. OBJECTIVE: VITAL SIGNS: Blood pressure is 142/69, respirations 15, pulse 75, temperature 99.8. HEENT: Head is normocephalic. NECK: Supple. HEART: Regular rate. LUNGS: Show diminished breath sounds at base. ABDOMEN: Soft, nontender to palpation. No rebound or guarding. EXTREMITIES: Negative for clubbing, cyanosis, no edema. DERMATOLOGIC: No rashes. MUSCULOSKELETAL: No joint effusions. NEUROLOGIC: No change in exam. MEDICATIONS: The patient's medications have been reviewed. LABORATORY DATA: Shows white count 15.4, hemoglobin 10.1, hematocrit of 30.7, platelet count is 141 . Sodium 133, BUN 15, creatinine 0.80. IMAGING: Chest x-ray shows cardiomegaly and postoperative changes. ASSESSMENT AND PLAN: 1. Status post aortic valve replacement, postop day #2. The patient is currently stable. Continue current medical management. Follow up with cardiology and CT surgery. 2. Hypertension. Blood pressure controlled. Continue medical management. 3. Dyslipidemia. Continue statin therapy. 4. Mild hyponatremia. Continue to monitor and limit free water intake. 5. Chronic pain syndrome. Continue current pain regimen. 6. Fungal rash. Continue nystatin cream. Will consider a course of Diflucan. 7. Leukocytosis, etiology is likely reactive; however, will place an infectious disease consult for further evaluation. 8. History of endocarditis, status post valve replacement, status post antibiotic therapy. 9. Anemia. Monitor hemoglobin and hematocrit levels. 10. Gastrointestinal and deep venous thrombosis prophylaxis. Continue proton pump inhibitor and se quential leg squeezers. Dictated By: PIERCE CALLES DO NR/NTS Conf#: [id number] DID#: [id number] CC: ROBINSON GREENBERG MD;*End*
--- NOTE | 2017-03-24 09:30 | CONS ---
Date/Time of Note Date/Time of Note DATE: 03/24/17 TIME: 09:28 Assessment/Plan Assessment/Plan Chief Complaint/Hosp Course S/p Bio AVR: 21mm per OP report. No immediate complications. Doing well. H/o aortic valve endocarditis with severe AR: s/p AVR as above HTN HL -?possible [facility]. Defer to Dr. Mason -pain control -obtain baseline echo possibly tomorrow Problems: Consultation Date/Type/Reason Admit Date/Time Mar 22, 2017 at 10:10 Initial Consult Date 03/23/17 Type of Consultation: Cardiology Referring Provider: ROBINSON MASON MD 24 HR Interval Summary Free Text/Dictation No o/n events. Still with pain but doing well. Exam/Review of Systems Vital Signs Vitals Vital Signs Date Time Temp Pulse Resp B/P Pulse Ox O2 Delivery O2 Flow Rate FiO2 03/24/17 09:00 73 19 115/101 96 Room Air 03/24/17 07:00 99.8 03/23/17 19:46 21 03/23/17 12:30 3.0 Intake and Output 03/23/17 03/23/17 03/24/17 15:00 23:00 07:00 Intake Total 1103.5 ml 441 ml 640 ml Output Total 487 ml 333 ml 224 ml Balance 616.5 ml 108 ml 416 ml Exam Constitutional: alert, oriented Head: atraumatic, normocephalic Neck: supple, No jvd Respiratory: clear to auscultation, No crackles/rales Cardiovascular: regular rate and rhythm, systolic murmur (2/6 MI), No edema Gastrointestinal: non-tender, soft Neurological: nl mental status, nl speech Results Result Diagram: 03/24/17 0505 03/24/17 0505 Results 24 hrs Laboratory Tests Test 03/23/17 10:01 03/23/17 12:10 03/23/17 15:05 03/23/17 17:34 Bedside Glucose 160 137 117 117 Test 03/23/17 21:17 03/24/17 05:05 03/24/17 07:54 Bedside Glucose 126 115 White Blood Count 15.4 #H Red Blood Count 3.42 L Hemoglobin 10.1 L Hematocrit 30.7 L Mean Corpuscular Volume 89.8 Mean Corpuscular Hemoglobin 29.5 Mean Corpuscular Hemoglobin Concent 32.9 Red Cell Distribution Width 15.2 H Platelet Count 141 Mean Platelet Volume 11.4 H Neutrophils % 81.1 H Lymphocytes % 8.7 L Monocytes % 8.9 Eosinophils % 0.4 Basophils % 0.2 Nucleated Red Blood Cells % 0.0 Neutrophils # 12.5 H Lymphocytes # 1.3 Monocytes # 1.4 H Eosinophils # 0.1 Basophils # 0.0 Nucleated Red Blood Cells # 0.0 Sodium Level 133 L Potassium Level 5.1 Chloride Level 98 Carbon Dioxide Level 28 Anion Gap 12 Blood Urea Nitrogen 15 Creatinine 0.80 Glucose Level 122 Calcium Level 9.4 Magnesium Level 1.7 Medications Medications Current Medications Potassium Chloride/Calcium Chloride/Dextrose/ Sodium Chloride (KCl/Ca Chloride/ D5-1/4ns) 1,030 ml @ 60 mls/hr [id number] IV Last administered on 03/22/17 21: 06; Admin Dose 60 MLS/HR; Start 03/22/17 at 18:53 Hydromorphone HCl (Dilaudid) 0.2 mg Q15M PRN IV PAIN LEVEL 1-5 Last administered on 03/24/17 09:01; Admin Dose 0.2 MG; Start 03/22/17 at 21:30 Hydromorphone HCl (Dilaudid) 0.4 mg Q15M PRN IV PAIN LEVEL 6-10 Last administered on 03/23/17 03:08; Admin Dose 0.4 MG; Start 03/22/17 at 21:30 Hydromorphone HCl (Dilaudid) 0.2 mg Q1H PRN IV PAIN LEVEL 1-5; Start 03/22/17 at 21:30 Hydromorphone HCl (Dilaudid) 0.4 mg Q1H PRN IV PAIN LEVEL 6-10 Last administered on 03/24/17 08:00; Admin Dose 0.4 MG; Start 03/22/17 at 21:30 Ondansetron HCl 4 mg 4 mg Q6H PRN IV NAUSEA AND/OR VOMITING; Start 03/22/17 at 21:30 Magnesium Sulfate/ Dextrose (Magnesium Sulfate 1 Gm/D5W) 100 ml @ 100 mls/hr PRN PRN IVPB PENDING LAB VALUE; Start 03/22/17 at 21:30 Docusate Sodium (Colace) 100 mg BID PO Last administered on 03/24/17 08:50; Admin Dose 100 MG; Start 03/23/17 at 21:00 Polyethylene Glycol (Miralax) 17 gm DAILY PRN PO CONSTIPATION; Start 03/23/17 at 16:30 Diagnostic Test (Pha) (Accu-Chek) 1 ea 02 XX ; Start 03/24/17 at 02:00 Diagnostic Test (Pha) (Accu-Chek) 1 ea 02 XX ; Start 03/24/17 at 02:00 Famotidine (Pepcid) 20 mg BID PO Last administered on 03/24/17 08:50; Admin Dose 20 MG; Start 03/23/17 at 21:00 Miscellaneous Information 1 ea NOTE XX ; Start 03/23/17 at 17:00 Glucose (Glutose) 15 gm Q15M PRN PO DECREASED GLUCOSE; Start 03/23/17 at 17:00 Glucose (Glutose) 22.5 gm Q15M PRN PO DECREASED GLUCOSE; Start 03/23/17 at 17: 00 Dextrose (D50w Syringe) 25 ml Q15M PRN IV DECREASED GLUCOSE; Start 03/23/17 at 17:00 Dextrose (D50w Syringe) 50 ml Q15M PRN IV DECREASED GLUCOSE; Start 03/23/17 at 17:00 Glucagon (Glucagen) 1 mg Q15M PRN IM DECREASED GLUCOSE; Start 03/23/17 at 17: 00 Glucose (Glutose) 15 gm Q15M PRN BUCCAL DECREASED GLUCOSE; Start 03/23/17 at 17:00 Nystatin (Nystatin Cr) 1 applic BID TOP Last administered on 03/24/17 09:01; Admin Dose 1 APPLIC; Start 03/24/17 at 09:00 MARY ANNE FULLER Mar 24, 2017 09:30
--- NOTE | 2017-03-24 12:50 | CONS ---
DATE OF ADMISSION: 03/22/2017 DATE OF CONSULTATION: 03/24/2017 TYPE OF CONSULTATION: Infectious Disease. REASON FOR CONSULTATION: Antibiotic management. HISTORY OF PRESENT ILLNESS: Patient is a 71-year-old female who comes in for aortic valve replaceme and is seen status post aortic valve replacement. PAST PROBLEMS INCLUDE: 1. Dyslipidemia. 2. Hypertension. 3. Recently diagnosed aortic valve endocarditis with severe regurgitation. She was treated with IV antibiotics. She underwent elective aortic valve replacement on 03/22/[address] Mason withou t any intraoperative or postoperative complications. The patient is currently in intensive care. PAST SURGICAL HISTORY: Includes cholecystectomy and history of Kory-en-Y gastric bypass procedure. FAMILY HISTORY: Noncontributory. SOCIAL HISTORY: She does not smoke, drink or abuse drugs. ALLERGIES: NONE TO PENICILLIN, SULFA OR FOODS. MEDICATIONS: Per chart. REVIEW OF SYSTEMS: Noncontributory. PHYSICAL EXAMINATION: GENERAL: The patient is a well-developed, well-nourished female, alert, responsive, in no acute dis tress. VITAL SIGNS: Stable. She is afebrile. SKIN: Without generalized rash. HEENT: Within normal limits. NECK: Supple. LYMPH NODES: None palpable. THORAX: Status post aortic valve replacement. CHEST: Decreased breath sounds at the bases. HEART: Without murmur or gallop. ABDOMEN: Soft, nontender, without organosplenomegaly or masses. EXTREMITIES: Without cyanosis, clubbing, or edema. RECTAL AND GENITAL: Deferred. NEUROLOGIC: Without focal neurological abnormalities. ANCILLARY LABORATORY DATA: White count was 16.4, H and H 10.1 and 30.7, platelet count 141,000. BU N and creatinine 15/0.8. IMPRESSION AND PLAN: The patient currently has leukocytosis. Recent chest x-ray shows that the driss tral line is removed. She has sternal wires and mediastinal drains. Right internal jugular sheath, catheter and [place]-Larry catheter have been removed. Her MRSA screen is negative. Otherwise, no cul tures are pending and she is off antibiotic therapy. We will observe to see if there is any reason for antibiotics. I will dictate my findings to Dr. Mason and to Dr. Landa, Dr. Soriano and Dr. Interiano. Dictated By: PARRISH MCGOVERN MD, JD/NICKOLAS Conf#: [id number] DID#: [id number]
--- NOTE | 2017-03-24 13:50 | PN ---
Date/Time of Note Date/Time of Note DATE: 03/24/17 TIME: 13:50 Assessment/Plan Lines/Catheters IV Catheter Type (from Nrsg): Saline Lock Rahman in Place (from Nrsg): Yes Assessment/Plan Chief Complaint/Hosp Course SP AVR hemodamamically stable will DC PW CT [place] Tele Problems: Subjective 24 Hr Interval Summary Constitutional: improved Pain Control: mild Exam/Review of Systems Vital Signs Vitals Vital Signs Date Time Temp Pulse Resp B/P Pulse Ox O2 Delivery O2 Flow Rate FiO2 03/24/17 13:00 98 21 112/95 96 Room Air 03/24/17 07:00 99.8 03/23/17 19:46 21 03/23/17 12:30 3.0 Intake and Output 03/23/17 03/23/17 03/24/17 15:00 23:00 07:00 Intake Total 1103.5 ml 441 ml 660 ml Output Total 487 ml 333 ml 224 ml Balance 616.5 ml 108 ml 436 ml Exam ENMT: mucosa pink and moist, nl external ears & nose, nl lips & teeth, nl nasal mucosa & septum Neck: non-tender, supple Respiratory: clear to auscultation, normal air movement Cardiovascular: nl pulses, regular rate and rhythm Gastrointestinal: nl liver, spleen, non-tender, soft Results Result Diagram: 03/24/17 0505 03/24/17 0505 ROBINSON GREENBERG MD Mar 24, 2017 13:50
--- NOTE | 2017-03-24 14:53 | RADRPT ---
PROCEDURE: XR Chest. CLINICAL INDICATION: Shortness of breath TECHNIQUE: Single portable view of the chest was obtained COMPARISON: March 24, 2017 FINDINGS: The trachea is midline. The cardiac silhouette is enlarged and pulmonary vascularity are within norm al limits. The lungs are clear. The costophrenic angles are sharp. Status post mediastinotomy. IMPRESSION: 1. Cardiomegaly. No evidence of acute cardiopulmonary disease. 2. Mediastinal postsurgical changes. RPTAT: AAPP Physician Shannon Date Time Electronically viewed and signed by Physician Shannon on 03/24/2017 14:52 JL/
[2017-03-25] VITALS (14 sets, daily range): BP systolic 86–153; BP diastolic 60–80; PULSE 75–90; RESP 11–20
[2017-03-25] MEDS: ACCU-CHEK XX SCH ×2 (02:00)
[2017-03-25] MEDS: HYDROmorphONE 0.5 MG/0.5 ML SYG IV PRN ×5 (05:07→21:00)
[2017-03-25 05:21] LABS: BASOPHILS % 0.2 % (0.0-2.0); EOSINOPHILS # 0.1 10^3/ul (0.0-0.5); EOSINOPHILS % 0.8 % (0.0-7.0); HEMATOCRIT 30.3 % (37.0-47.0); LYMPHOCYTES # 1.3 10^3/ul (0.8-2.9); LYMPHOCYTES % 9.5 % (15.0-51.0); MEAN CORPUSCULAR HEMOGLOBIN 29.3 pg (29.0-33.0); MEAN CORPUSCULAR VOLUME 88.9 fl (82.0-101.0); MONOCYTE # 1.1 10^3/ul (0.3-0.9); MONOCYTES % 7.8 % (0.0-11.0); NEUTROPHIL # 11.2 10^3/ul (1.6-7.5); NEUTROPHILS % 81.1 % (39.0-77.0); PLATELET COUNT 164 10^3/UL (140-415); RED BLOOD COUNT 3.41 10^6/ul (4.20-5.40); WHITE BLOOD COUNT 13.8 10^3/ul (4.8-10.8)
[2017-03-25 05:48] LABS: CALCIUM 9.5 mg/dl (8.4-10.2); CREATININE 0.81 mg/dl (0.44-1.00); MAGNESIUM 1.6 mg/dl (1.7-2.5); PHOSPHORUS 3.4 mg/dl (2.5-4.9); POTASSIUM 4.8 mmol/L (3.5-5.1)
[2017-03-25] MEDS: INSULIN ASPART [NOVOLOG] 3 ML PEN SC SCH ×2 (07:55→11:50)
[2017-03-25] MEDS ORDERED: MAGNESIUM SULFATE 2 GM/50 ML 50 ML IVPB ONE (08:30)
[2017-03-25] MEDS: FAMOTIDINE 20 MG TAB PO SCH ×2 (08:39→20:59)
[2017-03-25] MEDS: DOCUSATE SODIUM 100 MG CAP PO SCH ×2 (08:39→20:58)
[2017-03-25] MEDS: NYSTATIN 15 GM CR TOP SCH ×2 (09:00→20:59)
--- NOTE | 2017-03-25 10:25 | PN ---
DATE: 03/25/2017 SUBJECTIVE: The patient was transferred from intensive care unit, currently stable on telemetry. N o other events noted. The patient had a chest tube, was removed yesterday. OBJECTIVE: VITAL SIGNS: Blood pressure is 86/62, respirations 16, pulse 85, temperature 98.8. HEENT: Head is normocephalic. NECK: Supple. HEART: Regular rate. LUNGS: Show diminished breath sounds at base. ABDOMEN: Soft, nontender to palpation without rebound or guarding. EXTREMITIES: Negative for clubbing, cyanosis, no edema. DERMATOLOGIC: No rashes. MUSCULOSKELETAL: No joint effusions. NEUROLOGIC: No change in exam. MEDICATIONS: The patient's medications have been reviewed. LABORATORY DATA: Shows white count 13.8, hemoglobin 10.0, platelet count is 164. Sodium 131, potas sium 4.8, chloride 96, magnesium 1.6. ASSESSMENT AND PLAN: 1. Status post aortic valve replacement. The patient is currently stable. Continue current treatm ent plan. Follow up with cardiology and CT surgery. 2. Hypertension, but the patient is now hypotensive, asymptomatic. Continue to monitor. 3. Dyslipidemia. Continue statin therapy. 4. Mild hyponatremia, likely due to hypertonic fluids, continue to monitor and limit free water int gutierrez. 5. Chronic pain syndrome. Continue current pain regimen. 6. Fungal rash. Patient is completing course of Diflucan. 7. Leukocytosis. Etiology may be reactive. Appreciate infectious disease evaluation. 8. History of endocarditis, status post valve replacement. The patient was seen by infectious dise ase. At this point, will continue to monitor. Appreciate their help with management. 9. Anemia. Monitor hemoglobin and hematocrit levels. 10. Gastrointestinal and deep venous thrombosis prophylaxis. Dictated By: PIERCE CALLES DO NR/NTS Conf#: [id number] DID#: [id number] CC: ROBINSON GREENBERG MD;*End*
--- NOTE | 2017-03-25 10:29 | RADRPT ---
PROCEDURE: XR Chest. CLINICAL INDICATION: Dyspnea TECHNIQUE: Single frontal chest x-ray. COMPARISON: None. FINDINGS: Blunting of the left costophrenic angle is identified with mild opacification in the left lung base. This is unchanged when compared to the prior study. Elsewhere, the remainder of the lungs are leola r. The cardiomediastinal silhouette is remarkable for cardiomegaly with postsurgical changes overlyi ng the midline chest. The osseous structures are unremarkable. IMPRESSION: 1. Focal opacification in the left lung base, stable. 2. Cardiomegaly with postsurgical residuals, also stable. RPTAT: PP .Lalo Jacobsen MD, MD Date Time Electronically viewed and signed by .Lalo Jacobsen MD, MD on 03/25/2017 10:29 .B/
--- NOTE | 2017-03-25 12:24 | CONS ---
Date/Time of Note Date/Time of Note DATE: 03/25/17 TIME: 12:23 Assessment/Plan Assessment/Plan Chief Complaint/Hosp Course S/p Bio AVR: 21mm per OP report. No immediate complications. Doing well. H/o aortic valve endocarditis with severe AR: s/p AVR as above HTN HL -pain control -obtain baseline echo Problems: Consultation Date/Type/Reason Admit Date/Time Mar 22, 2017 at 10:10 Initial Consult Date 03/23/17 Type of Consultation: Cardiology Referring Provider: ROBINSON GREENBERG MD 24 HR Interval Summary Free Text/Dictation Transferred to tele. Overall feels well. Hoping to be discharged Sat or Sun Exam/Review of Systems Vital Signs Vitals Vital Signs Date Time Temp Pulse Resp B/P Pulse Ox O2 Delivery O2 Flow Rate FiO2 03/25/17 12:01 79 03/25/17 08:00 98.7 19 129/60 96 03/25/17 06:00 Room Air 03/24/17 22:03 21 03/23/17 12:30 3.0 Intake and Output 03/24/17 03/24/17 03/25/17 15:00 23:00 07:00 Intake Total 845 ml 475 ml 250 ml Output Total 203 ml 345 ml 365 ml Balance 642 ml 130 ml -115 ml Exam Constitutional: alert, oriented Psych: nl mood/affect, no complaints Head: atraumatic, normocephalic Neck: supple, No jvd Respiratory: clear to auscultation, No crackles/rales Cardiovascular: regular rate and rhythm, systolic murmur (2/6 MI), No edema Gastrointestinal: non-tender, soft Neurological: nl mental status, nl speech Results Result Diagram: 03/25/17 0453 03/25/17 0453 Results 24 hrs Laboratory Tests Test 03/24/17 17:54 03/24/17 20:11 03/25/17 04:53 03/25/17 08:36 Bedside Glucose 110 130 102 White Blood Count 13.8 H Red Blood Count 3.41 L Hemoglobin 10.0 L Hematocrit 30.3 L Mean Corpuscular Volume 88.9 Mean Corpuscular Hemoglobin 29.3 Mean Corpuscular Hemoglobin Concent 33.0 Red Cell Distribution Width 15.0 H Platelet Count 164 Mean Platelet Volume 11.0 H Neutrophils % 81.1 H Lymphocytes % 9.5 L Monocytes % 7.8 Eosinophils % 0.8 Basophils % 0.2 Nucleated Red Blood Cells % 0.0 Neutrophils # 11.2 H Lymphocytes # 1.3 Monocytes # 1.1 H Eosinophils # 0.1 Basophils # 0.0 Nucleated Red Blood Cells # 0.0 Sodium Level 131 L Potassium Level 4.8 Chloride Level 96 L Carbon Dioxide Level 29 Anion Gap 11 Blood Urea Nitrogen 14 Creatinine 0.81 Glucose Level 116 Calcium Level 9.5 Phosphorus Level 3.4 Magnesium Level 1.6 L Test 03/25/17 11:53 Bedside Glucose 108 Medications Medications Current Medications Hydromorphone HCl (Dilaudid) 0.2 mg Q15M PRN IV PAIN LEVEL 1-5 Last administered on 03/25/17 05:07; Admin Dose 0.2 MG; Start 03/22/17 at 21:30 Hydromorphone HCl (Dilaudid) 0.4 mg Q15M PRN IV PAIN LEVEL 6-10 Last administered on 03/23/17 03:08; Admin Dose 0.4 MG; Start 03/22/17 at 21:30 Hydromorphone HCl (Dilaudid) 0.2 mg Q1H PRN IV PAIN LEVEL 1-5 Last administered on 03/24/17 19:01; Admin Dose 0.2 MG; Start 03/22/17 at 21:30 Hydromorphone HCl (Dilaudid) 0.4 mg Q1H PRN IV PAIN LEVEL 6-10 Last administered on 03/25/17 11:09; Admin Dose 0.4 MG; Start 03/22/17 at 21:30 Ondansetron HCl (Zofran Inj) 4 mg Q6H PRN IV NAUSEA AND/OR VOMITING; Start at 21:30 Docusate Sodium (Colace) 100 mg BID PO Last administered on 03/25/17 08:39; Admin Dose 100 MG; Start 03/23/17 at 21:00 Polyethylene Glycol (Miralax) 17 gm DAILY PRN PO CONSTIPATION; Start 03/23/17 at 16:30 Diagnostic Test (Pha) (Accu-Chek) 1 ea 02 XX ; Start 03/24/17 at 02:00 Famotidine (Pepcid) 20 mg BID PO Last administered on 03/25/17 08:39; Admin Dose 20 MG; Start 03/23/17 at 21:00 Miscellaneous Information 1 ea NOTE XX ; Start 03/23/17 at 17:00 Glucose (Glutose) 15 gm Q15M PRN PO DECREASED GLUCOSE; Start 03/23/17 at 17:00 Glucose (Glutose) 22.5 gm Q15M PRN PO DECREASED GLUCOSE; Start 03/23/17 at 17: 00 Dextrose (D50w Syringe) 25 ml Q15M PRN IV DECREASED GLUCOSE; Start 03/23/17 at 17:00 Dextrose (D50w Syringe) 50 ml Q15M PRN IV DECREASED GLUCOSE; Start 03/23/17 at 17:00 Glucagon (Glucagen) 1 mg Q15M PRN IM DECREASED GLUCOSE; Start 03/23/17 at 17: 00 Glucose (Glutose) 15 gm Q15M PRN BUCCAL DECREASED GLUCOSE; Start 03/23/17 at 17:00 Nystatin (Nystatin Cr) 1 applic BID TOP Last administered on 03/24/17 20:13; Admin Dose 1 APPLIC; Start 03/24/17 at 09:00 MARY ANNE FULLER Mar 25, 2017 12:24
--- NOTE | 2017-03-25 13:34 | PN ---
Date/Time of Note Date/Time of Note DATE: 03/25/17 TIME: 13:31 Assessment/Plan Lines/Catheters IV Catheter Type (from Nrsg): Saline Lock Rahman in Place (from Nrsg): Yes Assessment/Plan Chief Complaint/Hosp Course SP AVR hemodynamically stable pulm toilet ASA DC planning Problems: Subjective 24 Hr Interval Summary Constitutional: improved Pain Control: mild Exam/Review of Systems Vital Signs Vitals Vital Signs Date Time Temp Pulse Resp B/P Pulse Ox O2 Delivery O2 Flow Rate FiO2 03/25/17 12:01 79 03/25/17 08:00 98.7 19 129/60 96 03/25/17 06:00 Room Air 03/24/17 22:03 21 03/23/17 12:30 3.0 Intake and Output 03/24/17 03/24/17 03/25/17 14:59 22:59 06:59 Intake Total 865 ml 425 ml 300 ml Output Total 203 ml 325 ml 385 ml Balance 662 ml 100 ml -85 ml Exam ENMT: mucosa pink and moist, nl external ears & nose, nl lips & teeth, nl nasal mucosa & septum Neck: non-tender, supple Respiratory: clear to auscultation, normal air movement Cardiovascular: nl pulses, regular rate and rhythm Gastrointestinal: nl liver, spleen, non-tender, soft Results Result Diagram: 03/25/17 0453 03/25/17 0453 ROBINSON GREENBERG MD Mar 25, 2017 13:34
--- NOTE | 2017-03-25 14:44 | PN ---
DATE: 03/25/2017 SUBJECTIVE: Patient is alert, feels good. Denies pain, discomfort. No fevers. WBC 13.8, platelets 164, neutrophils 81.1, BUN 14, creatinine 0.81. PHYSICAL EXAMINATION: GENERAL: Well-developed, obese, elderly woman who is alert, in no distress. HEENT: Head atraumatic, normocephalic. Sclerae anicteric. Buccal mucosa pink. NECK: Supple. CHEST: Rise symmetrical. Breath sounds clear. HEART: S1, S2. ABDOMEN: Soft, bowel tones present. EXTREMITIES: Without cyanosis. ASSESSMENT: 1. Status post aortic valve replacement on 03/23/2017. 2. History of aortic valve endocarditis. 3. Systemic inflammatory response syndrome with leukocytosis, no evidence of sepsis. 4. Hypertension. 5. Dyslipidemia. PLAN: The patient remains stable off antibiotics. White blood cell count tracing down. She is afe brile. We will continue observing. Her repeat cultures p.r.n. Dictated By: CARLO MIKE COMPOUNDER HELPER for PARRISH MCGOVERN MD NI/NTS Conf#: [id number] DID#: [id number] CC: ROBINSON GREENBERG MD;*EndCC*
[2017-03-25] MEDS: ASPIRIN 325 MG TAB PO SCH (17:21)
[2017-03-26] VITALS (14 sets, daily range): BP systolic 123–149; BP diastolic 63–69; PULSE 76–126; RESP 17–20
[2017-03-26] MEDS: HYDROmorphONE 0.5 MG/0.5 ML SYG IV PRN ×4 (07:17→20:57)
[2017-03-26 08:24] LABS: BASOPHILS % 0.2 % (0.0-2.0); EOSINOPHILS # 0.1 10^3/ul (0.0-0.5); EOSINOPHILS % 1.2 % (0.0-7.0); HEMATOCRIT 29.8 % (37.0-47.0); HEMOGLOBIN 9.8 g/dl (12.0-16.0); LYMPHOCYTES % 10.8 % (15.0-51.0); MEAN CORPUSCULAR HEMOGLOBIN 29.2 pg (29.0-33.0); MEAN CORPUSCULAR HGB CONC 32.9 g/dl (32.0-37.0); MEAN CORPUSCULAR VOLUME 88.7 fl (82.0-101.0); MEAN PLATELET VOLUME 10.8 fl (7.4-10.4); MONOCYTE # 0.9 10^3/ul (0.3-0.9); MONOCYTES % 9.1 % (0.0-11.0); NEUTROPHIL # 7.4 10^3/ul (1.6-7.5); NEUTROPHILS % 78.2 % (39.0-77.0); PLATELET COUNT 191 10^3/UL (140-415); RED BLOOD COUNT 3.36 10^6/ul (4.20-5.40); RED CELL DISTRIBUTION WIDTH 14.7 % (11.5-14.5); WHITE BLOOD COUNT 9.4 10^3/ul (4.8-10.8)
[2017-03-26] MEDS ORDERED: HYDROmorphONE 2 MG TAB PO PRN (08:30)
[2017-03-26 08:46] LABS: CALCIUM 9.3 mg/dl (8.4-10.2); CREATININE 0.71 mg/dl (0.44-1.00); MAGNESIUM 1.9 mg/dl (1.7-2.5); PHOSPHORUS 3.7 mg/dl (2.5-4.9); POTASSIUM 4.6 mmol/L (3.5-5.1)
[2017-03-26] MEDS: POLYETHYLENE GLYCOL 17 GM PACKET PO SCH (08:46)
[2017-03-26] MEDS: ASPIRIN 325 MG TAB PO SCH (08:47)
[2017-03-26] MEDS: SENNA TAB PO SCH ×2 (08:47→21:25)
[2017-03-26] MEDS: FAMOTIDINE 20 MG TAB PO SCH ×2 (08:47→21:25)
[2017-03-26] MEDS: DOCUSATE SODIUM 100 MG CAP PO SCH ×2 (08:47→21:25)
[2017-03-26] MEDS: NYSTATIN 15 GM CR TOP SCH ×2 (08:48→21:25)
--- NOTE | 2017-03-26 09:08 | RADRPT ---
PROCEDURE: XR Chest. CLINICAL INDICATION: Chest pain, history of chest tube TECHNIQUE: Single frontal view of the chest was obtained COMPARISON: 03/25/2017 FINDINGS: The patient has had previous median sternotomy. The cardiac silhouette is unremarkable. There is a persistent small to moderate left pleural effusion with associated atelectasis. The lungs are otherwise clear. The bones and soft tissue show no acute change. IMPRESSION: 1. Persistent small to moderate left pleural effusion with associated atelectasis. 2. No evidence of pneumothorax. RPTAT:AAJJ Physician Filiberto Date Time Electronically viewed and signed by Armando Love Physician on 03/26/2017 09:08 /
--- NOTE | 2017-03-26 09:27 | PN ---
DATE: 03/26/2017 SUBJECTIVE: The patient is stable. The patient continues to have pain, which is improving. No oth er acute events noted. No hemoptysis, hematemesis or hematochezia. OBJECTIVE: VITAL SIGNS: Blood pressure is 149/69, respiration 18, pulse 76, temperature 98.0. HEENT: Head is normocephalic. NECK: Supple. HEART: Regular rate. LUNGS: Show diminished breath sounds at the base. ABDOMEN: Soft, nontender to palpation. No rebound or guarding. EXTREMITIES: Negative for clubbing, cyanosis, no edema. DERMATOLOGIC: No rashes. MUSCULOSKELETAL: No joint effusions. NEUROLOGIC: No change in exam. MEDICATIONS: The patient's medications have been reviewed. LABORATORY DATA: From 03/26/2017 is pending. ASSESSMENT AND PLAN: 1. Status post aortic valve replacement. The patient is currently stable. Continue current treatm ent plan. Will continue to monitor. Follow up with cardiology and CT surgery for recommendations. 2. Hypertension. Continue to monitor. 3. Dyslipidemia. Continue statin therapy. 4. Mild hyponatremia. Etiology may be secondary to transient syndrome of inappropriate anti-diuret ic hormone due to underlying pain and recent surgery. Continue to monitor. 5. Chronic pain syndrome. Continue current pain management regimen and start the patient on oral D ilaudid. 6. Fungal rash. Patient is completing course of Diflucan. 7. Leukocytosis. Etiology may be reactive. Appreciate infectious disease evaluation. Follow up c ultures. 8. History of endocarditis, status post valve replacement. The patient is being followed by infect ious disease. We will defer management to infectious disease. 9. Anemia. Monitor hemoglobin and hematocrit levels. 10. Gastrointestinal and deep venous thrombosis prophylaxis. Continue proton pump inhibitor, seque ntial leg squeezers. 11. Debility. Continue physical therapy. DISPOSITION: Anticipate discharge in the next 1 to 2 days. Dictated By: PIERCE CALLES DO NR/NICKOLAS Conf#: [id number] DID#: [id number] CC: ROBINSON GREENBERG MD;*EndCC*
--- NOTE | 2017-03-26 11:08 | CONS ---
Date/Time of Note Date/Time of Note DATE: 03/26/17 TIME: 11:04 Assessment/Plan Assessment/Plan Chief Complaint/Hosp Course S/p Bio AVR: 21mm per OP report. No immediate complications. Doing well. NSVT: 2-3 beats. EF known to be preserved and no CAD. H/o aortic valve endocarditis with severe AR: s/p AVR as above HTN HL -start metoprolol succinate 25mg daily -ASA for valve -pain control -baseline echo as outpt as pt does not want one here -dispo planning over the weekend Problems: Consultation Date/Type/Reason Admit Date/Time Mar 22, 2017 at 10:10 Initial Consult Date 03/23/17 Type of Consultation: Cardiology Referring Provider: ROBINSON GREENBERG MD 24 HR Interval Summary Free Text/Dictation No o/n events. Chest incisional pain is improving. 2-3 beats of NSVT with palpitations. Does not want echo done here. Exam/Review of Systems Vital Signs Vitals Vital Signs Date Time Temp Pulse Resp B/P Pulse Ox O2 Delivery O2 Flow Rate FiO2 03/26/17 08:00 82 03/26/17 07:49 98.0 18 149/69 98 03/25/17 06:00 Room Air 03/24/17 22:03 21 03/23/17 12:30 3.0 Intake and Output 03/25/17 03/25/17 03/26/17 15:00 23:00 07:00 Intake Total 560 ml 350 ml Output Total 250 ml Balance 310 ml 350 ml Exam Constitutional: alert, oriented Psych: nl mood/affect, no complaints Head: atraumatic, normocephalic Eyes: nl conjunctiva ENMT: nl external ears & nose Neck: supple, No jvd Respiratory: clear to auscultation, No crackles/rales Cardiovascular: regular rate and rhythm, systolic murmur (2/6 MI), No edema Gastrointestinal: non-tender, soft Neurological: nl mental status, nl speech Results Result Diagram: 03/26/17 0740 03/26/17 0739 Results 24 hrs Laboratory Tests Test 03/25/17 11:53 03/26/17 07:39 03/26/17 07:40 Bedside Glucose 108 Sodium Level 134 L Potassium Level 4.6 Chloride Level 98 Carbon Dioxide Level 31 Anion Gap 10 Blood Urea Nitrogen 15 Creatinine 0.71 Glucose Level 100 Calcium Level 9.3 Phosphorus Level 3.7 Magnesium Level 1.9 White Blood Count 9.4 # Red Blood Count 3.36 L Hemoglobin 9.8 L Hematocrit 29.8 L Mean Corpuscular Volume 88.7 Mean Corpuscular Hemoglobin 29.2 Mean Corpuscular Hemoglobin Concent 32.9 Red Cell Distribution Width 14.7 H Platelet Count 191 Mean Platelet Volume 10.8 H Neutrophils % 78.2 H Lymphocytes % 10.8 L Monocytes % 9.1 Eosinophils % 1.2 Basophils % 0.2 Nucleated Red Blood Cells % 0.0 Neutrophils # 7.4 Lymphocytes # 1.0 Monocytes # 0.9 Eosinophils # 0.1 Basophils # 0.0 Nucleated Red Blood Cells # 0.0 Medications Medications Current Medications Hydromorphone HCl (Dilaudid) 0.2 mg Q15M PRN IV PAIN LEVEL 1-5 Last administered on 03/25/17 05:07; Admin Dose 0.2 MG; Start 03/22/17 at 21:30 Hydromorphone HCl (Dilaudid) 0.4 mg Q15M PRN IV PAIN LEVEL 6-10 Last administered on 03/23/17 03:08; Admin Dose 0.4 MG; Start 03/22/17 at 21:30 Hydromorphone HCl (Dilaudid) 0.2 mg Q1H PRN IV PAIN LEVEL 1-5 Last administered on 03/24/17 19:01; Admin Dose 0.2 MG; Start 03/22/17 at 21:30 Hydromorphone HCl (Dilaudid) 0.4 mg Q1H PRN IV PAIN LEVEL 6-10 Last administered on 03/26/17 07:17; Admin Dose 0.4 MG; Start 03/22/17 at 21:30 Ondansetron HCl (Zofran Inj) 4 mg Q6H PRN IV NAUSEA AND/OR VOMITING; Start at 21:30 Docusate Sodium (Colace) 100 mg BID PO Last administered on 03/26/17 08:47; Admin Dose 100 MG; Start 03/23/17 at 21:00 Polyethylene Glycol (Miralax) 17 gm DAILY PRN PO CONSTIPATION; Start 03/23/17 at 16:30 Famotidine (Pepcid) 20 mg BID PO Last administered on 03/26/17 08:47; Admin Dose 20 MG; Start 03/23/17 at 21:00 Miscellaneous Information 1 ea NOTE XX ; Start 03/23/17 at 17:00 Nystatin (Nystatin Cr) 1 applic BID TOP Last administered on 03/26/17 08:48; Admin Dose 1 APPLIC; Start 03/24/17 at 09:00 Aspirin (Aspirin) 325 mg DAILY PO Last administered on 03/26/17 08:47; Admin Dose 325 MG; Start 03/25/17 at 14:00 Senna (Senokot) 1 tab BID PO Last administered on 03/26/17 08:47; Admin Dose 1 TAB; Start 03/26/17 at 09:00 Polyethylene Glycol (Miralax) 17 gm DAILY PO Last administered on 03/26/17 08 :46; Admin Dose 17 GM; Start 03/26/17 at 09:00 Hydromorphone HCl (Dilaudid) 2 mg Q4H PRN PO PAIN; Start 03/26/17 at 08:30 MARY ANNE FULLER Mar 26, 2017 11:08
[2017-03-26] MEDS: METOPROLOL (XL) 25 MG TAB PO SCH (12:03)
--- NOTE | 2017-03-26 13:23 | RADRPT ---
Vent Rate: 74 bpm RR Interval: 0 msec MO Interval: 156 msec QRS Duration: 96 msec QT Interval: 408 msec QTC Interval: 452 msec P-R-T [place]: -10 - 38 - 3 degrees Normal sinus rhythm Anterior infarct , age undetermined Abnormal ECG Electronically Signed By: Tyree Humphrey [id number]
--- NOTE | 2017-03-26 15:10 | CONS ---
Date/Time of Note Date/Time of Note DATE: 03/26/17 TIME: 15:08 Consult Date/Type/Reason Admit Date/Time Mar 22, 2017 at 10:10 Initial Consult Date 03/23/17 Type of Consultation: id Ordering Provider: ROBINSON GREENBERG MD Objective Vital Signs Date Time Temp Pulse Resp B/P Pulse Ox O2 Delivery O2 Flow Rate FiO2 03/26/17 12:03 98.0 87 18 127/66 98 03/25/17 06:00 Room Air 03/24/17 22:03 21 03/23/17 12:30 3.0 Intake and Output 03/25/17 03/25/17 03/26/17 14:59 22:59 06:59 Intake Total 560 ml 350 ml Output Total 250 ml Balance 310 ml 350 ml Results/Medications Result Diagram: 03/26/17 0740 03/26/17 0739 Results 24 hrs Laboratory Tests Test 03/26/17 07:39 03/26/17 07:40 Sodium Level 134 L Potassium Level 4.6 Chloride Level 98 Carbon Dioxide Level 31 Anion Gap 10 Blood Urea Nitrogen 15 Creatinine 0.71 Glucose Level 100 Calcium Level 9.3 Phosphorus Level 3.7 Magnesium Level 1.9 White Blood Count 9.4 # Red Blood Count 3.36 L Hemoglobin 9.8 L Hematocrit 29.8 L Mean Corpuscular Volume 88.7 Mean Corpuscular Hemoglobin 29.2 Mean Corpuscular Hemoglobin Concent 32.9 Red Cell Distribution Width 14.7 H Platelet Count 191 Mean Platelet Volume 10.8 H Neutrophils % 78.2 H Lymphocytes % 10.8 L Monocytes % 9.1 Eosinophils % 1.2 Basophils % 0.2 Nucleated Red Blood Cells % 0.0 Neutrophils # 7.4 Lymphocytes # 1.0 Monocytes # 0.9 Eosinophils # 0.1 Basophils # 0.0 Nucleated Red Blood Cells # 0.0 Medications Current Medications Hydromorphone HCl (Dilaudid) 0.2 mg Q15M PRN IV PAIN LEVEL 1-5 Last administered on 03/25/17 05:07; Admin Dose 0.2 MG; Start 03/22/17 at 21:30 Hydromorphone HCl (Dilaudid) 0.4 mg Q15M PRN IV PAIN LEVEL 6-10 Last administered on 03/23/17 03:08; Admin Dose 0.4 MG; Start 03/22/17 at 21:30 Hydromorphone HCl (Dilaudid) 0.2 mg Q1H PRN IV PAIN LEVEL 1-5 Last administered on 03/24/17 19:01; Admin Dose 0.2 MG; Start 03/22/17 at 21:30 Hydromorphone HCl (Dilaudid) 0.4 mg Q1H PRN IV PAIN LEVEL 6-10 Last administered on 03/26/17 13:38; Admin Dose 0.4 MG; Start 03/22/17 at 21:30 Ondansetron HCl (Zofran Inj) 4 mg Q6H PRN IV NAUSEA AND/OR VOMITING; Start at 21:30 Docusate Sodium (Colace) 100 mg BID PO Last administered on 03/26/17 08:47; Admin Dose 100 MG; Start 03/23/17 at 21:00 Polyethylene Glycol (Miralax) 17 gm DAILY PRN PO CONSTIPATION; Start 03/23/17 at 16:30 Famotidine (Pepcid) 20 mg BID PO Last administered on 03/26/17 08:47; Admin Dose 20 MG; Start 03/23/17 at 21:00 Miscellaneous Information 1 ea NOTE XX ; Start 03/23/17 at 17:00 Nystatin (Nystatin Cr) 1 applic BID TOP Last administered on 03/26/17 08:48; Admin Dose 1 APPLIC; Start 03/24/17 at 09:00 Aspirin (Aspirin) 325 mg DAILY PO Last administered on 03/26/17 08:47; Admin Dose 325 MG; Start 03/25/17 at 14:00 Senna (Senokot) 1 tab BID PO Last administered on 03/26/17 08:47; Admin Dose 1 TAB; Start 03/26/17 at 09:00 Polyethylene Glycol (Miralax) 17 gm DAILY PO Last administered on 03/26/17 08 :46; Admin Dose 17 GM; Start 03/26/17 at 09:00 Hydromorphone HCl (Dilaudid) 2 mg Q4H PRN PO PAIN; Start 03/26/17 at 08:30 Metoprolol Succinate (Toprol Xl) 25 mg DAILY PO Last administered on 12:03; Admin Dose 25 MG; Start 03/26/17 at 11:30 Assessment/Plan Chief Complaint/Hosp Course SUBJECTIVE: Patient is alert, feels good. Denies pain. No fevers. PHYSICAL EXAMINATION: GENERAL: Well-developed, obese, elderly woman who is alert, in no distress. HEENT: Head atraumatic, normocephalic. Sclerae anicteric. Buccal mucosa pink. NECK: Supple. CHEST: Rise symmetrical. Breath sounds clear. HEART: S1, S2. ABDOMEN: Soft, bowel tones present. EXTREMITIES: Without cyanosis. ASSESSMENT: 1. Status post aortic valve replacement on 03/23/2017. 2. History of aortic valve endocarditis. 3. Systemic inflammatory response syndrome with resolving leukocytosis, no evidence of sepsis. 4. Hypertension. 5. Dyslipidemia. PLAN: The patient remains stable off antibiotics. DW staff Problems: CARLO MIKE NP Mar 26, 2017 15:10
[2017-03-26] MEDS: CEPASTAT LOZENGE MT PRN (15:47)
--- NOTE | 2017-03-26 19:53 | PN ---
Date/Time of Note Date/Time of Note DATE: 03/26/17 TIME: 19:52 Assessment/Plan Lines/Catheters IV Catheter Type (from Nrsg): Saline Lock Assessment/Plan Chief Complaint/Hosp Course SP AVR hemodynamically stable pulm toilet ASA DC planning Problems: Subjective 24 Hr Interval Summary Constitutional: improved Pain Control: mild Exam/Review of Systems Vital Signs Vitals Vital Signs Date Time Temp Pulse Resp B/P Pulse Ox O2 Delivery O2 Flow Rate FiO2 03/26/17 16:52 98.0 83 18 123/68 98 03/25/17 06:00 Room Air 03/24/17 22:03 21 03/23/17 12:30 3.0 Intake and Output 03/25/17 03/25/17 03/26/17 15:00 23:00 07:00 Intake Total 560 ml 350 ml Output Total 250 ml Balance 310 ml 350 ml Exam Neck: non-tender, supple Respiratory: clear to auscultation, normal air movement Cardiovascular: nl pulses, regular rate and rhythm Gastrointestinal: nl liver, spleen, non-tender, soft Results Result Diagram: 03/26/17 0740 03/26/17 0739 ROBINSON GREENBERG MD Mar 26, 2017 19:53
[2017-03-26] MEDS: POLYETHYLENE GLYCOL 17 GM PACKET PO PRN (21:29)
[2017-03-27 00:15] VITALS: PULSE 72
[2017-03-27 04:06] VITALS: PULSE 69
[2017-03-27] MEDS: CEPASTAT LOZENGE MT PRN (06:23)
[2017-03-27 08:09] VITALS: BP 145/69; RESP 18
[2017-03-27 08:24] VITALS: PULSE 86
[2017-03-27] MEDS: POLYETHYLENE GLYCOL 17 GM PACKET PO SCH (08:29)
[2017-03-27] MEDS: FAMOTIDINE 20 MG TAB PO SCH (08:29)
[2017-03-27] MEDS: ASPIRIN 325 MG TAB PO SCH (08:29)
[2017-03-27] MEDS: SENNA TAB PO SCH (08:29)
[2017-03-27] MEDS: DOCUSATE SODIUM 100 MG CAP PO SCH (08:29)
[2017-03-27] MEDS: METOPROLOL (XL) 25 MG TAB PO SCH (08:31)
[2017-03-27] MEDS: NYSTATIN 15 GM CR TOP SCH (08:34)
[2017-03-27] MEDS: HYDROmorphONE 0.5 MG/0.5 ML SYG IV PRN ×2 (08:43→12:33)
--- NOTE | 2017-03-27 08:59 | RADRPT ---
PROCEDURE: XR Chest. CLINICAL INDICATION: Shortness of breath TECHNIQUE: Single portable view of the chest was obtained. COMPARISON: 03/26/2017 and additional priors FINDINGS: Cardiac/vascular structures: Normal cardiomediastinal silhouette. Pulmonary: Similar left basilar airspace opacity. Small left pleural effusion. No evidence of pneum othorax. Osseous structures: Sternotomy wires. Soft tissues: Normal IMPRESSION: Similar left basilar airspace opacity representing atelectasis or pneumonia. Small left pleural effusion. RPTAT:AAJJ Physician Caesar Date Time Electronically viewed and signed by Nikolay Loya Physician on 03/27/2017 08:58 /
[2017-03-27] MEDS ORDERED: HYDR2TAB36 PO (10:10)
[2017-03-27] MEDS ORDERED: ASPI325T4 PO (10:10)
[2017-03-27] MEDS ORDERED: METO-335 PO (10:10)
--- NOTE | 2017-03-27 10:13 | DS ---
Date/Time of Note Date/Time of Note DATE: 03/27/17 TIME: 10:12 Discharge Summary Admission/Discharge Info Admit Date/Time Mar 22, 2017 at 10:10 Discharge Date/Time Hospital Course This is a 71-year-old female with a past medical history of dyslipidemia, hypertension, who underwent elective aortic valve replacement. The patient was recently diagnosed with aortic valve endocarditis and severe regurgitation. The patient was treated with IV antibiotics. She underwent elective aortic valve replacement surgery on 03/22/[address] Mason without any intraoperative or postoperative complications. additional diagnosis: 1. Status post aortic valve replacement on 03/23/2017. 2. History of aortic valve endocarditis. 3. Systemic inflammatory response syndrome with resolving leukocytosis, no evidence of sepsis. 4. Hypertension. 5. Dyslipidemia. GENERAL: Well-developed, obese, elderly woman who is alert, in no distress. HEENT: Head atraumatic, normocephalic. Sclerae anicteric. Buccal mucosa pink. NECK: Supple. CHEST: Rise symmetrical. Breath sounds clear. HEART: S1, S2. ABDOMEN: Soft, bowel tones present. EXTREMITIES: Without cyanosis. time of fci: 40 min Home Meds Reported Medications Naftifine Hcl (NAFTIN) 45 Gm Cream..g., 45 GM TP BID 03/22/17 Diflorasone Diacetate (Diflorasone Diacetate) 0.05%-60 Gm Oint..gm., 1 APPLIC TOP QID, TUB 03/22/17 Cholecalciferol (Vitamin D3) (Vitamin D-3) 2,000 Unit Tablet, 2000 UNIT PO DAILY , TAB 03/22/17 Docusate Sodium* (Colace*) 100 Mg Capsule, 200 MG PO, #60 CAP 03/22/17 Docusate Sodium* (Colace*) 100 Mg Capsule, 100 MG PO QAM, #30 CAP 03/22/17 Ca/D3/Mag#11/Zinc/[employer]ist/Tom/Bor (Caltrate 600+D Plus Tablet) 1 Each Tablet, 1 EACH PO DAILY, TAB 01/12/17 Multivitamin (MULTI VITAMIN DAILY) 1 Each Tablet, 1 TAB PO DAILY, TAB 01/12/17 Vitamin E* (Vitamin E*) 400 Unit Capsule, 400 UNIT PO DAILY, CAP 01/12/17 Irbesartan* (Irbesartan*) 150 Mg Tablet, 150 MG PO DAILY, TAB 01/12/17 Pravastatin Sodium (Pravastatin Sodium) 20 Mg Tablet, 20 MG PO HS, TAB 01/12/17 Discontinued Reported Medications Biotin (BIOTIN) 1 Mg Capsule, 1 MG PO DAILY, CAP 01/12/17 Docusate Sodium (Stool Softener) 100 Mg Tablet, 100 MG PO BID Y for CONSTIPATION , TAB 01/12/17 Primary Care Provider Not On Staff Doctor BIRDIE HANNAH DO Mar 27, 2017 10:13
[2017-03-27 11:57] VITALS: BP_SYST 113; BP_SYST 141; BP_DIAS 72; BP_DIAS 84; RESP 20
[2017-03-27 12:03] VITALS: PULSE 85
[2017-03-27] MEDS: POLYETHYLENE GLYCOL 17 GM PACKET PO PRN (12:33)
--- NOTE | 2017-03-27 12:49 | CONS ---
Date/Time of Note Date/Time of Note DATE: 03/27/17 TIME: 12:47 Assessment/Plan Assessment/Plan Chief Complaint/Hosp Course S/p Bio AVR: 21mm per OP report. No complications. Doing well. NSVT: 2-3 beats. EF known to be preserved and no CAD. H/o aortic valve endocarditis with severe AR: s/p AVR as above HTN HL -metoprolol succinate 25mg daily -ASA for valve -ok for d/c Problems: Consultation Date/Type/Reason Admit Date/Time Mar 22, 2017 at 10:10 Initial Consult Date 03/23/17 Type of Consultation: Cardiology Referring Provider: ROBINSON GREENBERG MD 24 HR Interval Summary Free Text/Dictation No o/n events. Plan for d/c today Exam/Review of Systems Vital Signs Vitals Vital Signs Date Time Temp Pulse Resp B/P Pulse Ox O2 Delivery O2 Flow Rate FiO2 03/27/17 12:03 85 03/27/17 11:57 97.1 20 141/72 99 03/25/17 06:00 Room Air 03/24/17 22:03 21 03/23/17 12:30 3.0 Intake and Output 03/26/17 03/26/17 03/27/17 14:59 22:59 06:59 Intake Total 550 ml Balance 550 ml Exam Constitutional: alert, oriented Psych: nl mood/affect, no complaints Head: atraumatic, normocephalic Neck: No jvd Respiratory: clear to auscultation, No crackles/rales Cardiovascular: regular rate and rhythm, No edema Gastrointestinal: non-tender, soft Neurological: nl mental status, nl speech Results Result Diagram: 03/26/17 0740 03/26/17 0739 Medications Medications Current Medications Hydromorphone HCl (Dilaudid) 0.2 mg Q15M PRN IV PAIN LEVEL 1-5 Last administered on 03/25/17 05:07; Admin Dose 0.2 MG; Start 03/22/17 at 21:30 Hydromorphone HCl (Dilaudid) 0.4 mg Q15M PRN IV PAIN LEVEL 6-10 Last administered on 03/26/17 20:57; Admin Dose 0.4 MG; Start 03/22/17 at 21:30 Hydromorphone HCl (Dilaudid) 0.2 mg Q1H PRN IV PAIN LEVEL 1-5 Last administered on 03/24/17 19:01; Admin Dose 0.2 MG; Start 03/22/17 at 21:30 Hydromorphone HCl (Dilaudid) 0.4 mg Q1H PRN IV PAIN LEVEL 6-10 Last administered on 03/27/17 12:33; Admin Dose 0.4 MG; Start 03/22/17 at 21:30 Ondansetron HCl (Zofran Inj) 4 mg Q6H PRN IV NAUSEA AND/OR VOMITING; Start at 21:30 Docusate Sodium (Colace) 100 mg BID PO Last administered on 03/27/17 08:29; Admin Dose 100 MG; Start 03/23/17 at 21:00 Polyethylene Glycol (Miralax) 17 gm DAILY PRN PO CONSTIPATION Last administered on 03/27/17 12:33; Admin Dose 17 GM; Start 03/23/17 at 16:30 Famotidine (Pepcid) 20 mg BID PO Last administered on 03/27/17 08:29; Admin Dose 20 MG; Start 03/23/17 at 21:00 Miscellaneous Information 1 ea NOTE XX ; Start 03/23/17 at 17:00 Nystatin (Nystatin Cr) 1 applic BID TOP Last administered on 03/27/17 08:34; Admin Dose 1 APPLIC; Start 03/24/17 at 09:00 Aspirin (Aspirin) 325 mg DAILY PO Last administered on 03/27/17 08:29; Admin Dose 325 MG; Start 03/25/17 at 14:00 Senna (Senokot) 1 tab BID PO Last administered on 03/27/17 08:29; Admin Dose 1 TAB; Start 03/26/17 at 09:00 Polyethylene Glycol (Miralax) 17 gm DAILY PO Last administered on 03/27/17 08 :29; Admin Dose 17 GM; Start 03/26/17 at 09:00 Hydromorphone HCl (Dilaudid) 2 mg Q4H PRN PO PAIN; Start 03/26/17 at 08:30 Metoprolol Succinate (Toprol Xl) 25 mg DAILY PO Last administered on 08:31; Admin Dose 25 MG; Start 03/26/17 at 11:30 Phenol (Cepastat Lozenge) 1 lozenge Q4 PRN MT SORE THROAT Last administered on 03/27/17t 06:23; Admin Dose 1 LOZENGE; Start 03/26/17 at 15:30 MARY ANNE FULLER Mar 27, 2017 12:49
--- NOTE | 2017-03-27 13:27 | PN ---
Date/Time of Note Date/Time of Note DATE: 03/27/17 TIME: 13:25 Assessment/Plan Lines/Catheters IV Catheter Type (from Nrsg): Saline Lock Assessment/Plan Chief Complaint/Hosp Course SP AVR hemodynamically stable pulm toilet ASA DC home today Problems: Subjective 24 Hr Interval Summary Constitutional: improved Pain Control: mild Exam/Review of Systems Vital Signs Vitals Vital Signs Date Time Temp Pulse Resp B/P Pulse Ox O2 Delivery O2 Flow Rate FiO2 03/27/17 12:03 85 03/27/17 11:57 97.1 20 141/72 99 03/25/17 06:00 Room Air 03/24/17 22:03 21 03/23/17 12:30 3.0 Intake and Output 03/26/17 03/26/17 03/27/17 15:00 23:00 07:00 Intake Total 550 ml Balance 550 ml Exam ENMT: mucosa pink and moist, nl external ears & nose, nl lips & teeth, nl nasal mucosa & septum Neck: non-tender, supple Respiratory: clear to auscultation, normal air movement Cardiovascular: nl pulses, regular rate and rhythm Gastrointestinal: nl liver, spleen, non-tender, soft Results Result Diagram: 03/26/17 0740 03/26/17 0739 ROBINSON GREENBERG MD Mar 27, 2017 13:27
== END 2017-03-27 14:30 | disposition home health service (06) | DRG 220 ==
LOC: REC 10:10 → ICU 11:37 → TEL 03-25 06:30
PROVIDERS: ADMIT Thoracic Surgery (Cardiothoracic Vascular Surgery); ATTEND Thoracic Surgery (Cardiothoracic Vascular Surgery)
PROC: 02RF08Z Replacement of Aortic Valve with Zooplastic Tissue, Open Approach (ICD-10-PCS; principal; 2017-03-22 13:00)
DX: I35.1 Nonrheumatic aortic (valve) insufficiency (principal); E87.1 Hypo-osmolality and hyponatremia; R65.10 Systemic inflammatory response syndrome (SIRS) of non-infectious origin without acute organ dysfunction; D64.9 Anemia, unspecified; I10 Essential (primary) hypertension; B36.9 Superficial mycosis, unspecified; E78.5 Hyperlipidemia, unspecified; G89.4 Chronic pain syndrome
CPT/HCPCS: 36592; 36600; 71010; 80048; 80053; 81001; 82803; 82962; 83735; 84100; 85025; 85610; 85730; 86704; 86706; 86709; 86803; 86850; 86900; 86901; 86920; 87081; 87340; 93005; 93312; 93325; 94002; 94003; 94770; 97110; 97116; 97163; 97530; J1940; J0171; J0360; J0690; J1170; J1265; J1644; J1815; J2001; J2250; J2370; J2720; J3010; J3370; J3475; J3480; J7070; P9047